=== PATIENT | male | born 1970 | race Caucasian/White ===

== ENCOUNTER 2025-03-08 19:28 | Inpatient (IN) | payer SELFPAY ==
[2025-03-08] VITALS (7 sets, daily range): BP systolic 54–90; BP diastolic 41–71; PULSE 74–90; RESP 21–28; TEMP 36.6; O2SAT 88–93; BMI 23.0
--- NOTE | 2025-03-08 19:30 | ECG_ITS ---
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 Measurements Intervals [place] Rate: 91 P: 69 IA: 142 QRS: 37 QRSD: 109 T: 71 QT: 338 QTc: 417 Interpretive Statements SINUS RHYTHM POSSIBLE LEFT ATRIAL ENLARGEMENT [-0.1mV P-WAVE IN V1/V2] INCOMPLETE RIGHT BUNDLE BRANCH BLOCK [90+ ms QRS DURATION, TERMINAL R IN V1/V2, 40+ ms S IN I/aVL/V4/V5/V6] SEPTAL MYOCARDIAL INFARCTION , OF INDETERMINATE AGE [40+ ms Q WAVE IN V1/V2] No previous ECG available for comparison Electronically Signed On 03-10-2025 16:52:21 [employer] by Jacinto Hernandez M.D. [email or web address]
--- NOTE | 2025-03-08 19:45 | W.ED.ABDPA2 ---
HPI - Abdominal Pain General: Chief Complaint: Abdominal Pain Stated Complaint: ABDOMINAL PAIN Time Seen by Provider: 03/08/25 19:29 History of Present Illness: 54-year-old male presents to the emergency room in the custody of [facility] complaining of abdominal cramping going on for last couple of days to a week. Has been nauseous has had a little bit of vomiting denies any medic easier melena hematemesis. Denies any dysuria urgency or frequency. He had a hernia repair surgery in the past. He noticed that when he sips on water his abdominal pain gets better. Poor appetite. No dysuria urgency frequency no hematuria. Associated Symptoms: Denies chills, dysuria and fever(s) Review of Systems Const: Denies: fever(s) or chills Card: Denies: chest pain Resp: Denies: dyspnea GI: Denies: abdominal pain : Denies: dysuria, urinary frequency or urinary urgency Musc: Denies: neck pain or back pain Skin/Breast: Denies: rash Physical Exam Const: GENERAL APPEARANCE: cooperative ORIENTATION/CONSCIOUSNESS: Yes awake, Yes oriented to person, Yes oriented to place and Yes oriented to time HENMT: COMMON NORMALS: normocephalic, atraumatic and hearing grossly normal bilaterally HEAD & SCALP: normocephalic and atraumatic Resp: COMMON NORMALS: normal respiratory effort, No retractions, No use of accessory muscles and clear to auscultation bilaterally AUSCULTATION: clear to auscultation bilaterally Cardio: COMMON NORMALS: regular rate, regular rhythm and No murmurs present (Cardio) RATE: regular rate RHYTHM: regular rhythm GI: AUSCULTATION: Yes Absent bowel sounds PALPATION: Yes Tenderness to palpation present (GI) and Yes Guarding due to palpation present (GI) Extremity: COMMON NORMALS: normal to inspection, capillary refill normal, no clubbing, cyanosis or edema, no calf tenderness and no pedal edema Neuro: SENSORIUM/ORIENTATION: Yes oriented to person, Yes oriented to place and Yes oriented to time Skin: COMMON NORMALS: no rashes or lesions noted GENERAL SKIN EXAM: no rashes or lesions noted Course Vital Signs: Vital signs: Vital Signs Temperature 97.8 F 03/08/25 19:36 Pulse Rate 74 03/08/25 22:35 Respiratory Rate 21 H 03/08/25 22:35 Blood Pressure 90/71 11/27/25 22:35 Pulse Oximetry 92 03/08/25 22:14 MDM - Abdominal Pain Medical Decision Making Medical decision making Social determinants: Patient currently incarcerated at the [facility] No medical records available for review No current home medications Alternate historians: Jose accompanying patient of confirmed abdominal pain for the last several days Differential diagnosis: Appendicitis cholecystitis bowel obstruction ulcer nephrolithiasis cystitis Lab Review: Labs reviewed. Significant leukocytosis lactate elevated liver enzymes and T. bili also markedly elevated. Imaging: CT shows free air in the abdomen concerning for acute perforated appendicitis. Gallbladder ultrasound does not show any dilation, bile ducts there is inflammation around the gallbladder suggestive of possible acute cholecystitis Assessment of risk: Level of risk: High Hospitalization considerations: Patient be taken from the ER directly to the operating room and then plan is to admit to ICU. Reexamination: Acute abdomen still present on reexam Assessment and plan: Patient is a poor historian he states he has had the abdominal pain for at least the past week worse in the last day or 2. He is difficult to get much more specific information out of on exam he does have an acute surgical abdomen. CT shows perforation. He was treated for sepsis. His significant leukocytosis elevated lactic acid and abnormal liver functions. He is given a initial liter of normal saline he also demonstrated some hypotension he was given a full sepsis bolus. He has acute kidney injury in addition to his other findings. Is also given Protonix. Discussed with general surgery and with hospitalist. Patient proceeding directly to the OR Lab Data I reviewed the patient's lab results. 03/08/25 19:59 03/08/25 19:59 Labs/Radiology: Radiology Impressions Chest X-Ray 03/08/25 19:49 IMPRESSION: No focal consolidation. Abdomen/Pelvis CT 03/08/25 20:48 IMPRESSION: 1. Free intraperitoneal air and fluid concerning for bowel perforation in the absence of recent abdominal surgery. 2. Question perforated appendix in the right lower quadrant (series 3, image 84) and (series 5, image 35). 3. Dilated air and fluid-filled stomach with fluid extending into the distended distal esophagus. Multiple dilated air and fluid-filled loops of small bowel concerning for ileus. ADDENDUM: 03/08/25 [id number] THIS REPORT CONTAINS FINDINGS THAT MAY BE CRITICAL TO PATIENT CARE. The findings were verbally communicated via telephone conference with NOVA Coleman at 9:48 PM ELECTRONIC COILS SUPERVISOR on 03/08/2025. The findings were acknowledged and understood. Gallbladder Ultrasound 03/08/25 21:07 IMPRESSION: Sludge filled gallbladder with sonographic Dahl's sign and gallbladder wall thickening consistent with cholecystitis. Laboratory Results WBC 27.94 10^3/uL (3.29-11.43) H 03/08/25 19:59 RBC 5.74 10^6/uL (3.85-5.65) H 03/08/25 19:59 Hgb 18.20 g/dL (11.27-16.99) H 03/08/25 19:59 Hct 51.4 % (37-53) 03/08/25 19:59 MCV 89.5 fl (82-101) 03/08/25 19:59 MCH 31.7 pg (27-33) 03/08/25 19:59 MCHC 35.4 g/dL (30-55) 03/08/25 19:59 RDW 12.7 % (12.1-15.1) 03/08/25 19:59 Plt Count 200 10^3/cmm (157-399) 03/08/25 19:59 MPV 12.5 fL (7.4-10.4) H 03/08/25 19:59 Lymph % (Auto) Not Reportable 03/08/25 19:59 Bracken % (Auto) Not Reportable 03/08/25 19:59 Lymph # (Auto) Not Reportable 03/08/25 19:59 Bracken # (Auto) Not Reportable 03/08/25 19:59 Total Counted 100 (0-100) 03/08/25 19:59 Atypical Lymphs % 3.0 % (0-5) 03/08/25 19:59 Absolute Neutrophils 23.7 10^3/cmm (1.4-6.5) H 03/08/25 19:59 Segmented Neutrophils 52 % 03/08/25 19:59 Band Neutrophils 33.0 % 03/08/25 19:59 Absolute Lymphocytes 2.8 10^3/cmm (1.2-3.4) 03/08/25 19:59 Lymphocytes (Manual) 7 % 03/08/25 19:59 Monocytes (Manual) 4.0 % 03/08/25 19:59 Absolute Monocytes 1.1 10^3/cmm (0.1-0.6) H 03/08/25 19:59 Eosinophils (Manual) 0 % 03/08/25 19:59 Absolute Eosinophils 0.0 10^3/cmm (0.0-0.7) 03/08/25 19:59 Basophils (Manual) 0.0 % 03/08/25 19:59 Absolute Basophils 0.0 10^3/cmm (0.0-0.2) 03/08/25 19:59 Metamyelocytes 1.0 % 03/08/25 19:59 Smudge Cells 1+ H 03/08/25 19:59 Platelet Estimate Normal (Normal) 03/08/25 19:59 Sodium 126 mmol/L (136-145) L 03/08/25 19:59 Potassium 3.0 mmol/L (3.5-5.1) L 03/08/25 19:59 Chloride 81 mmol/L (98-107) L 03/08/25 19:59 Carbon Dioxide 12 mmol/L (22-29) L 03/08/25 19:59 Anion Gap 36.0 (5-19) H 03/08/25 19:59 BUN > 112 mg/dL (6-20) H* 03/08/25 19:59 Creatinine 4.1 mg/dL (0.7-1.2) H 03/08/25 19:59 GFR Calculation 15.2 mL/min (90-130) L 03/08/25 19:59 Glucose 185 mg/dL (65-115) H 03/08/25 19:59 Calculated Osmolality 302 mOsm/kg (285-295) H 03/08/25 19:59 Lactic Acid 10.3 mmol/L (0.5-2.2) H* 03/08/25 19:59 Calcium 8.6 mg/dL (8.5-10.5) 03/08/25 19:59 Total Bilirubin 4.9 mg/dL (0.15-1.2) H 03/08/25 19:59 AST 180 U/L (0-40) H 03/08/25 19:59 ALT 74 U/L (0-41) H 03/08/25 19:59 Alkaline Phosphatase 79 U/L (40-130) 03/08/25 19:59 Ammonia 76 umol/L (16-60) H 03/08/25 19:59 Total Protein 6.4 g/dL (6.6-8.7) L 03/08/25 19:59 Albumin 2.7 g/dL (3.5-5.2) L 03/08/25 19:59 Globulin 3.7 g/dL (1.3-4.6) 03/08/25 19:59 Lipase 52 U/L (13-60) 03/08/25 19:59 All radiology interpretation(s) finalized by discharge EKG Data EKG 1: Interpretation: EKG 03/08/2000 2520 12 PM sinus rhythm rate of 91 WI interval 142 QTc [address] changes noted no previous EKG available for comparison Discharge Plan Discharge Patient Disposition: Admitted As Inpatient Clinical Impression: Perforated viscus, Acute kidney injury, Acute cholecystitis, Cholelithiasis, Septic shock Condition: Stable Coding Level of Care Code ED Geoint Analyst for Alvina Hendricks
--- NOTE | 2025-03-08 19:49 | XRR_ITS ---
PROCEDURE INFORMATION: Exam: XR Chest Exam date and time: 03/08/2025 7:59 PM Age: 54 years old Clinical indication: Dyspnea; Additional info: Dyspnea/cough TECHNIQUE: Imaging protocol: Radiologic exam of the chest. Views: 1 view. COMPARISON: No relevant prior studies available. FINDINGS: Lungs: Calcified granuloma of the lateral aspect of the left mid lung field. No focal consolidation. Pleural spaces: Unremarkable. No pleural effusion. No pneumothorax. Heart/Mediastinum: Unremarkable. No cardiomegaly. Bones/joints: Unremarkable. XR/XR chest 1V portable [id number] IMPRESSION: No focal consolidation.
[2025-03-08 20:07] LABS: Hematocrit 51.4 % (37-53); Hemoglobin 18.20 g/dL (11.27-16.99); Mean Corpuscular HGB Conc 35.4 g/dL (30-55); Mean Corpuscular Hemoglobin 31.7 pg (27-33); Mean Corpuscular Volume 89.5 fl (82-101); Platelet Count 200 10^3/cmm (157-399); Red Blood Count 5.74 10^6/uL (3.85-5.65); White Blood Count 27.94 10^3/uL (3.29-11.43)
[2025-03-08 20:27] LABS: Ammonia 76 umol/L (16-60)
[2025-03-08 20:28] LABS: Alanine Aminotransferase 74 U/L (0-41); Albumin Level 2.7 g/dL (3.5-5.2); Alkaline Phosphatase 79 U/L (40-130); Aspartate Amino Transferase 180 U/L (0-40); Calcium 8.6 mg/dL (8.5-10.5); Carbon Dioxide 12 mmol/L (22-29); Chloride 81 mmol/L (98-107); Globulin 3.7 g/dL (1.3-4.6); Glucose 185 mg/dL (65-115); Lipase 52 U/L (13-60); Sodium 126 mmol/L (136-145); Total Protein 6.4 g/dL (6.6-8.7)
[2025-03-08 20:41] LABS: Lactic Sepsis W/Reflex 10.3 mmol/L (0.5-2.2)
[2025-03-08 20:42] LABS: Anion Gap 36.0 (5-19); Potassium 3.0 mmol/L (3.5-5.1)
[2025-03-08 20:44] LABS: Blood Urea Nitrogen > 112 mg/dL (6-20); Osmolality Calculated 302 mOsm/kg (285-295)
--- NOTE | 2025-03-08 20:48 | CTR_ITS ---
PROCEDURE INFORMATION: Exam: CT Abdomen And Pelvis Without Contrast Exam date and time: 03/08/2025 9:23 PM Age: 54 years old Clinical indication: Abdominal pain TECHNIQUE: Imaging protocol: Computed tomography of the abdomen and pelvis without contrast. Radiation optimization: All CT scans at this facility use at least one of these dose optimization techniques: automated exposure control; mA and/or kV adjustment per patient size (includes targeted exams where dose is matched to clinical indication); or iterative reconstruction. COMPARISON: CR (CHEST, ) 03/08/2025 7:59 PM RADIATION DOSE METRICS: Total DLP (mGy-cm): 601.13 FINDINGS: Liver: Normal. No mass. Gallbladder and biliary ducts: Normal. No calcified stones. No ductal dilation. Pancreas: Normal. No ductal dilation. Spleen: Normal. No splenomegaly. Adrenal glands: Normal. No mass. Kidneys and ureters: Normal. No hydronephrosis. Stomach and bowel: Dilated air and fluid-filled stomach with fluid extending into the distended distal esophagus. Multiple dilated air and fluid-filled loops of small bowel concerning for ileus. Appendix: Question perforated appendix in the right lower quadrant (series 3, image 84) and (series 5, image 35). Intraperitoneal space: Free intraperitoneal air and fluid concerning for bowel perforation in the absence of recent abdominal surgery. Vasculature: Unremarkable. No abdominal aortic aneurysm. Lymph nodes: Unremarkable. No enlarged lymph nodes. Urinary bladder: Unremarkable as visualized. Reproductive: Unremarkable as visualized. Bones/joints: Unremarkable. No acute fracture. Soft tissues: Unremarkable. CT/CT abdomen pelvis con [id number] IMPRESSION: 1. Free intraperitoneal air and fluid concerning for bowel perforation in the absence of recent abdominal surgery. 2. Question perforated appendix in the right lower quadrant (series 3, image 84) and (series 5, image 35). 3. Dilated air and fluid-filled stomach with fluid extending into the distended distal esophagus. Multiple dilated air and fluid-filled loops of small bowel concerning for ileus.
[2025-03-08 21:00] LABS: Slide Review Slide Review Perform
[2025-03-08 21:01] LABS: Absolute Segmented Neutrophil 14.5 10/cmm (1.6-7.1); Atypical Lymphs 3.0 % (0-5); Band Neutrophils Absolute 9.2 10^3/cmm (0.0-1.2); Total Cells Counted 100 (0-100)
[2025-03-08 21:02] LABS: Smudge Cells 1+
[2025-03-08] MEDS: pantoprazole 40 mg SDV 80 MG IVP (21:04)
[2025-03-08] MEDS: piperacillin-tazobactam 3.375 GM in sodium chloride 0.9% (plus) 50 ML IV (21:07)
--- NOTE | 2025-03-08 21:07 | USR_ITS ---
PROCEDURE INFORMATION: Exam: US Abdomen, Limited; Right Upper Quadrant Exam date and time: 03/08/2025 9:36 PM Age: 54 years old Clinical indication: Nausea and vomiting; Additional info: Elevated lfts, elevated t bili TECHNIQUE: Imaging protocol: Real time ultrasound of the abdomen with image documentation. Limited exam focused on the right upper quadrant. COMPARISON: CT abdomen pelvis wo con [id number] 03/08/2025 9:23 PM FINDINGS: Liver: The liver is enlarged measuring up to 17.4 cm in length. Gallbladder: The gallbladder wall is thickened measuring up to 5 mm. The gallbladder is filled with sludge. Sonographic Dahl's sign elicited during the examination. Biliary ducts: Common bile duct measures 5 mm in diameter. Abdominal ascites. Pancreas: Visualized pancreas is unremarkable. Right kidney: The right kidney measures 9.2 cm in length with no hydronephrosis or renal calculus. Inferior vena cava: The visualized aorta and IVC are unremarkable. Portal venous: The main portal vein is patent with appropriate direction of flow. US/US gall bladder [id number] IMPRESSION: Sludge filled gallbladder with sonographic Dahl's sign and gallbladder wall thickening consistent with cholecystitis.
[2025-03-08 21:50] LABS: Reflex Lactate Order REFLEX LACTIC ORDERD
[2025-03-08] MEDS: ceFAZolin 2,000 MG in sodium chloride 0.9% (plus) 100 ML 200 MG IV (22:57)
--- NOTE | 2025-03-08 23:01 | P.CONIM_ITS ---
Providers/Reason For Consult 2 Consulting Physician/Specialty*: Dr. Floyd general surgery Reason for Consult*: Perforated viscus Attending Physician: Jamir Floyd MD Primary Care Provider: hayde Denson History of Present Illness History of Present Illness Tl Schmuacher is a 54 year old male incarcerated who presents with septic shock with free air. Patient reports remote surgeries in the past although does not recall what he had done. No history of peptic ulcer disease. Patient does not have any relatives or next of kin. Diffusely tender to palpation. Hemodynamically appropriate. Vitals/I&O/Wt Last Vital Signs Temp 97.8 F 03/08/25 19:36 Pulse 74 03/08/25 22:35 Resp 21 H 03/08/25 22:35 BP 90/71 03/08/25 22:35 Pulse Ox 92 03/08/25 22:14 03/08/25 03/08/25 03/09/25 14:59 22:59 06:59 Intake Total 1050 / 1050 Balance 1050 / 1050 Weight last 48 hrs Weight 170 lb Physical Exam 2 Narrative: Chest: Unlabored breathing room air. No lymphadenopathy. Heart: Regular rate and rhythm. Abdomen: Soft, diffusely tender, mildly distended. No rebound. Data 03/08/25 19:59 03/08/25 19:59 Micro: Microbiology 03/08/25 20:01 Blood Culture - Preliminary Blood SPECIMEN COLLECTED 03/08/25 19:59 Blood Culture - Preliminary Blood SPECIMEN COLLECTED A&P Assessment and plan 1. Perforated viscus: Plan: 54-year-old male incarcerated who presents in septic shock with a year. Perforated viscus. I had an extensive discussion with the patient and answered all questions. I have discussed non operative/non procedural options and the patient still decides to proceed. Discussed risks and benefits of exploratory laparotomy, possible bowel resection, possible ostomy, possible ABThera, possible subsequent reexploration and patient decides to proceed. Patient understands the risks include bleeding, infection, hernia, anastomotic leak, bowel injury, and and still decides to proceed. Patient has no next of kin who would be able to make medical decisions. He understands he may remain intubated for several days. He agrees with any and all ICU procedures needed in order to support him. He agrees to dialysis if needed. Anesthesia providers present for the discussion. Discussed with hospitalist who will be primary given need for intensive care management. PDMP PDMP Reviewed: Not Reviewed Coding Level of Care Code 71422 Diagnoses Perforated viscus R19.8
--- NOTE | 2025-03-08 23:27 | ANES.PREANE2 ---
Pre-Anesthetic Assessment Height/Weight: Height 1.83 m Weight 77.111 kg Temp Pulse Resp BP Pulse Ox 97.8 F 74 21 H 90/71 92 03/08/25 19:36 03/08/25 22:35 03/08/25 22:35 03/08/25 22:35 03/08/25 22:14 Operation Date: 03/08/25 22:00 Proposed Procedures p Exploratory Laparotomy(Not Applicable) - Jamir Floyd MD Familial anesthetic complications: none Was Beta Fawn taken within 24 hours: N/A Was Clonidine taken within 24 hours: N/A Exam alert, oriented x 3, clear to auscultation bilaterally and regular rate & rhythm Airway Dentition: other (poor dentition) Anesthetic Plan ASA status: 4E Anesthesia: General Risk of > 500 ml blood loss (7ml/kg in children): No Data Anesthesia 03/08/25 19:59 03/08/25 19:59 Short CBC 03/08/25 Range/Units 19:59 WBC 27.94 H (3.29-11.43) 10^3/uL Hgb 18.20 H (11.27-16.99) g/dL Hct 51.4 (37-53) % MCV 89.5 (82-101) fl Plt Count 200 (157-399) 10^3/cmm BMP 03/08/25 19:59 Sodium 126 L Potassium 3.0 L Chloride 81 L Carbon Dioxide 12 L BUN > 112 H* Creatinine 4.1 H Glucose 185 H Calcium 8.6 Liver Function 03/08/25 Range/Units 19:59 Total Bilirubin 4.9 H (0.15-1.2) mg/dL AST 180 H (0-40) U/L ALT 74 H (0-41) U/L Alkaline Phosphatase 79 (40-130) U/L Albumin 2.7 L (3.5-5.2) g/dL Microbiology 03/08/25 20:01 Blood Culture - Preliminary Blood SPECIMEN COLLECTED 03/08/25 19:59 Blood Culture - Preliminary Blood SPECIMEN COLLECTED
[2025-03-09] VITALS (96 sets, daily range): BP systolic 63–130; BP diastolic 44–91; PULSE 65–163; RESP 17–37; TEMP 35.7–36.6; O2SAT 86–98
--- NOTE | 2025-03-09 00:07 | PM.OP ---
Operative Report Date of procedure: March 09, 2025 Pre-op diagnosis: Perforated viscus Post-op diagnosis: Perforated appendicitis with multiple intra-abdominal abscesses Post-op findings: Perforated appendicitis with multiple intra-abdominal abscesses. 1 L of purulent fluid evacuated. Performed an appendectomy. Washed out the abdomen with 9 L of warm normal saline and 900 cc of Irrisept. Ran the bowel 5 times from ligament of Treitz to the cecum and it was all intact. Ascending colon, transverse colon, descending colon all intact. Stomach intact. NG tube positioning confirmed intraoperatively. Left to 19 [place] Toribio drains in the right paracolic gutter and left paracolic gutter. Procedure done: Exploratory laparotomy, appendectomy, abdominal washout Implants: N/A Specimens removed/disposition: Cultures obtained for intra-abdominal abscesses. Resected appendix and sent to pathology. Pathology: Appendix sent to pathology Surgeon: Jamir Floyd MD Candy Counter Clerk: N/A Anesthesia: General Estimated blood loss (mL): 30 Complications: N/A Findings: Perforated appendicitis with multiple intra-abdominal abscesses. 1 L of purulent fluid evacuated. Performed an appendectomy. Washed out the abdomen with 9 L of warm normal saline and 900 cc of Irrisept. Ran the bowel 5 times from ligament of Treitz to the cecum and it was all intact. Ascending colon, transverse colon, descending colon all intact. Stomach intact. NG tube positioning confirmed intraoperatively. Left to 19 [place] Toribio drains in the right paracolic gutter and left paracolic gutter. Condition: critical Disposition: ICU Brief History: 54-year-old male who presented in septic shock with free air. Discussed risk benefits and patient agreed to proceed with exploratory laparotomy, possible bowel resection, possible ostomy, possible ABThera, possible subsequent reexploration. Procedure: Consent obtained in the preop area. Patient transported to the OR. Laid supine on the OR table. SCDs on and working. Prophylactic antibiotics administered. Anesthesia placed a central line on the neck and an radial arterial line. A Bagley catheter was placed without any complication. Urine was obtained. The abdomen was prepped and draped in the usual sterile fashion. A midline incision was carried out. Electrocautery was used to dissect down to the fascial layer and scissors were used to enter the abdominal cavity. Immediately 1 L of purulent fluid was evacuated. Cultures were obtained and sent to microbiology. The abdominal cavity was washed out with 4 liters of warm normal saline. I then inspected the right iliac fossa and encountered a necrotic appendix with a large periappendiceal abscess. The a periappendiceal abscess was washed out with 3 L of warm normal saline. The appendix had a viable base at the cecum and therefore I was able to resect the appendix using a SURI stapler with a blue load. I passed off the specimen and it was sent to pathology. I then proceeded to run the bowel from ligament of Treitz to the cecum and it was all intact. I did encounter several interloop abscesses. These were washed out with 2 L warm normal saline. The ascending colon, the transverse colon, the descending colon were all inspected and found intact. The stomach was inspected and was intact. Adequate any to positioning was confirmed intraoperatively. NG tube was secured by anesthesia. I left two 19 [place] Toribio drains in the right and left paracolic gutters. The patient remained stable throughout the operation. I then decided to close the abdomen using oh looped PDS. Skin was irrigated and closed using surgical rober. A sterile dressing was applied. The patient was transferred to the ICU without any complications.
--- NOTE | 2025-03-09 00:30 | PC.NURSE ---
KCL Upon patient arrival to unit from OR, 20 meq KCL IV administering. MAR displayed not administered.
--- NOTE | 2025-03-09 00:49 | P.HP_ITS ---
Providers/Chief Complaint 2 Admitting Physician: Jamir Floyd MD Primary Care Provider: hayde Denson Chief Complaint: ABDOMINAL PAIN History of Present Illness As per the previous retrospective notes since the patient is intubated and no one is around to obtain collateral history: Tl Schumacher is a 54 year old male from retirement ( custody of [facility] ) came due to abd pain that has been ongoing for a month or so. he was nauseated as well but denied any vomiting. no fever or chills. the patient does not endorse having any other medical condition. On further evaluation the patient was found to have perforated viscus in the ER. His labs were concerning for septic shock with WENCESLAO and high lactic acid. He was taken to the OR and was found to have perforated appendix and intrabd abscess. he underwent ex lap with removal of the appendix and abd washout. 2 drains were inserted. he was extubated post surgery. currently on NGT as per surgery plan. the patient did not endorse any chest pain, chest pressure, lower leg swellings or any other symptoms like SOB or dizziness. rest of the review of system is unremarkable currently the patient is feeling well and is under police obs with hand cuffed to the ICU bed. Review of Systems 2 General: Reports: 10 or more systems reviewed and unremarkable except in HPI and below Vitals/I&O/Wt Last Vital Signs Temp 97.8 F 03/08/25 19:36 Pulse 74 03/08/25 22:35 Resp 21 H 03/08/25 22:35 BP 90/71 03/08/25 22:35 Pulse Ox 92 03/08/25 22:14 03/08/25 03/08/25 03/09/25 14:59 22:59 06:59 Intake Total 1050 / 1050 Balance 1050 / 1050 Weight last 48 hrs Weight 77.111 kg Physical Exam 2 Narrative: General: Alert and oriented, lying comfortably without any distress, on room air, able to complete his sentences, on fluid resuscitation HEENT: Normocephalic, atraumatic, grossly unremarkable exam Cardio: normal rate rhythm, normal S1-S2 without any murmurs, rubs, or gallops and JVD normal Respiratory: normal vascular breathing on auscultation without any wheezes, stridor, rhonchi GI: Abdomen soft, nondistended, normoactive bowel sounds present all 4 quadrants, with 2 drains at both lower quadrants having serosangious discharge, dressing in the middle for exp lap Neuro: intact cranial nerves motor and sensory and cerebellar/coordination function without any focal neurological deficit Behavior: Appropriate and cooperative Extremities: Adequate palpable pulses, no edema or cyanosis observed, having left arterial line and mild bluish tinge of his left hand, on folleys cath Skin: grossly unremarkable exam Data 03/08/25 19:59 03/08/25 19:59 Micro: Microbiology 03/08/25 20:01 Blood Culture - Preliminary Blood SPECIMEN COLLECTED 03/08/25 19:59 Blood Culture - Preliminary Blood SPECIMEN COLLECTED A&P Assessment and plan 1. Septic shock: - Secondary to intra-abdominal source from ruptured appendix and abdominal abscesses - Patient is fluid responsive, and having adequate pulses with adequate capillary refill, continue fluid resuscitation and aggressive fluid to maintain the MAP above 65 - 2 sets of blood cultures, urine cultures, to follow - Continue Zosyn - Lactate series - Maintain 2 IV bore cannulas -Patient having MAP over 65 and adequate pulses therefore to remove the arterial line on the left hand considering it may be leading to inadequate perfusion distally. -Monitor hemodynamics -Intake and output monitoring 2. Acute kidney injury: - Since the patient BUN and lactate is high - High osmolarity - Continue aggressive fluid resuscitation and monitor renal parameters - If renal parameters are not improving then further workup of WENCESLAO versus nephrology to be taken on board - Bagley's catheter and catheter care to continue - Urine cultures to follow - Maintain intake and output 3. Perforated viscus: - S/p exploratory laparotomy for ruptured appendix and abdominal wash for intra- abdominal abscesses - Continue Zosyn - Adequate analgesia - Follow surgery plan and recommendation - N.p.o. and on NGT - Diet as per surgery plan and recommendation 4. Hypokalemia: Continue potassium replacement and to monitor in the morning Follow magnesium levels PDMP PDMP Reviewed: Not Reviewed Attestations 2 Medical Necessity Statement*: Tl Schumacher's hospital stay will require greater than 2 midnights for management of septic shock secondary to ruptured abdominal viscera/appendix and abscesses complicated with WENCESLAO Time Spent in Patient Care: 16 - 35 minutes (>than 50% of time sp ent in counselling and/or direct pt care on unit) . Critical Care Time: The high probability of a clinically significant, sudden or life threatening deterioration, as referenced in this documentation, required my full and direct attention, intervention and personal management. The critical care time shown is in addition to time spent performing any reported separately billable procedures and includes the following: [x] Data and vital sign review and interpretation [x ] Patient assessment, examination and intervention [x] Medication orders and management [x] Patient/Family updates as able [x] Care Coordination and Documentation. Critical Care Time (min): 40 Other Attestations: Patient condition has been discussed at length with the patient/family, I have independently reviewed the chart labs imaging/diagnostics/EKG. the goals of care and code status with the patient/family/NOK/legal inbound call center representative, and documented accordingly. The management has been done according to the current clinical condition with respect to patient goals of care and based on recommendations/guidelines. The patient/family has been informed about the current condition and further plan of care. Agreed with the plan of care and understood without any language barrier. Every effort was made to ensure accuracy of tipping machine operator. Any obvious errors or omissions should be clarified with the author of the document. Coding Level of Care Code Critical Care >/= 30 minutes Diagnoses Septic shock A41.9; R65.21 Acute kidney injury N17.9 Perforated viscus R19.8 Hypokalemia E87.6
--- NOTE | 2025-03-09 01:00 | ANES.PROC ---
Anesthesia Procedures Procedure/Date: 03/09/25 Arterial Line: Time Out Performed: Yes Consent: from patient, from other, risks and benefits reviewed and patient agrees to proceed Size (Gauge): 20 Technique Used: guide wire technique Post-Procedure: dry sterile dressing placed Patient Tolerated Procedure: well and no complications Complications: none Site: left and radial Other Information: diagnosis:Septic shock
--- NOTE | 2025-03-09 01:00 | ANES.PROC ---
Anesthesia Procedures Procedure/Date: 03/09/25 Central Venous Insert: Central Venous Line: R IJ Time Out Performed: Yes Consent: from patient, from other, risks and benefits reviewed and patient agrees to proceed Central Line: New Anesthesia monitors: pulse oximetry, EKG, BP cuff and oxygen Vein cannulated: right internal jugular Ultrasound used: to identify patency to vessel and to visualize needle entry to vein Post procedure: Obtain Chest X-Ray Additional Comments: Chloraprep of area, full body drape applied, US used to visualize vessel and 18g catheter used to gain access, guidewire inserted and visualize in vessel both in-plane and [id number] on US, vessel dilated, triple lumen inserted, guidewire removed, sutured in place.
--- NOTE | 2025-03-09 01:42 | XRR_ITS ---
PROCEDURE INFORMATION: Exam: XR Chest Exam date and time: 03/09/2025 3:06 AM Age: 54 years old Clinical indication: Device placement; Other: Central and ng tube placement; Additional info: Central line placement/ ng tube placement TECHNIQUE: Imaging protocol: Radiologic exam of the chest. Views: 1 view. COMPARISON: CR (CHEST, ) 03/08/2025 7:59 PM FINDINGS: Tubes, catheters and devices: Feeding tube terminates in the stomach. Right IJ central venous catheter terminates in the SVC. Lungs: Unremarkable. No consolidation. Pleural spaces: Small left pleural effusion. Heart/Mediastinum: Unremarkable. No cardiomegaly. Bones/joints: Unremarkable. XR/XR chest 1V portable [id number] IMPRESSION: 1. Feeding tube terminates in the stomach. 2. Small left pleural effusion.
--- NOTE | 2025-03-09 01:45 | ANE.PACU2 ---
Inpatient post-anesthesia follow up: Airway intact: Yes Vital signs: Temperature 98 F Pulse Rate 92 Respiratory Rate 24 Blood Pressure 85/61 Pulse Oximetry 90 Oxygen Delivery Me thod Room Air Oxygen Flow Rate Fraction of Inspir ed Oxygen Hydration adequate: No (resuscitation ongoing) Nausea and vomiting: No Pain level: 5 Mental status: Baseline
[2025-03-09] MEDS: heparin 5,000 unit/mL INJ 1 mL 5000 UNIT SUBCUT ×2 (01:51→12:10)
--- NOTE | 2025-03-09 02:00 | PC.NURSE ---
Heparin/NGT Verification received from Dr. Rivas to administer subq heparin as ordered. Furthermore, order received from Dr. Garg to keep NG tube to low intermittent suction.
--- NOTE | 2025-03-09 02:00 | PC.NURSE ---
BP/Left Arterial Line Upon arrival to unit at around 0030, patient's blood pressure 63/46 automatic cuff with a corresponding arterial line reading of 71/33. Patient cool with a temporal temperature of 96F. Dr. Rivas contacted and order received for 2 one liter NS boluses with a maintenance fluid of LR to follow at 150 ml/hr. At approximately 0055, below the arterial line catheter, the left hand noted to be cyanotic with a +1 palpable radial pulse and a capillary refill of 8 seconds. In comparison, the right hand noted to be pink with a +2 palpable radial pulse and a capillary refill of [address] iRvas at bedside; order received to remove the arterial line. Arterial line removed at 0117; pressure held for 15 minutes and clear dressing applied. No hematomas noted. Approximately 30 minutes later, left hand noted to be pink in color with +2 palpable radial pulse.
[2025-03-09 03:08] LABS: Glucose Urine UA Negative (Normal); Nitrate Urine Negative (Negative); Specific Gravity, Urine 1.016 (1.005-1.030)
[2025-03-09 03:13] LABS: Add Urine Microscopic? YES
[2025-03-09 03:25] LABS: UA Slide Review UA Slide Review Perf
[2025-03-09 06:35] LABS: Magnesium 2.9 mg/dL (1.7-2.3)
[2025-03-09] MEDS: piperacillin-tazobactam 3.375 GM in sodium chloride 0.9% (plus) 50 ML IV ×3 (07:17→21:40)
[2025-03-09] MEDS: pantoprazole 40 mg SDV IVP (07:22)
[2025-03-09 08:15] LABS: Hematocrit 43.5 % (37-53); Hemoglobin 16.10 g/dL (11.27-16.99); Mean Corpuscular HGB Conc 37.0 g/dL (30-55); Mean Corpuscular Hemoglobin 32.5 pg (27-33); Mean Corpuscular Volume 87.9 fl (82-101); Nucleated Red Blood Cells % 0 %; Platelet Count 170 10^3/cmm (157-399); Red Blood Count 4.95 10^6/uL (3.85-5.65); White Blood Count 28.11 10^3/uL (3.29-11.43)
[2025-03-09 08:30] LABS: Alanine Aminotransferase 76 U/L (0-41); Albumin Level 1.9 g/dL (3.5-5.2); Alkaline Phosphatase 60 U/L (40-130); Anion Gap 24.5 (5-19); Aspartate Amino Transferase 205 U/L (0-40); Calcium 6.8 mg/dL (8.5-10.5); Carbon Dioxide 12 mmol/L (22-29); Chloride 95 mmol/L (98-107); Globulin 2.6 g/dL (1.3-4.6); Glucose 94 mg/dL (65-115); Lactic Sepsis W/Reflex 3.7 mmol/L (0.5-2.2); Potassium 3.5 mmol/L (3.5-5.1); Reflex Lactate Order REFLEX LACTIC ORDERD; Sodium 128 mmol/L (136-145); Total Protein 4.5 g/dL (6.6-8.7)
--- NOTE | 2025-03-09 08:45 | P.PN_ITS ---
Subjective 2 Subjective: Off pressors Toribio drains about 50 cc each right side serosanguineous left side murky Not passing gas Pain under control Urine output 1000 cc overnight Vitals/I&O/Wt Last Vital Signs Temp 98 F 03/09/25 05:45 Pulse 92 03/09/25 08:15 Resp 24 H 03/09/25 08:15 BP 85/61 03/09/25 08:15 Pulse Ox 90 03/09/25 08:15 O2 Del Method Room Air 03/09/25 07:45 03/08/25 03/09/25 03/09/25 22:59 06:59 14:59 Intake Total 1050 / 1050 965.8 / 2015.8 1000 / 1000 Output Total 225 / 225 750 / 750 Balance 1050 / 1050 740.8 / 1790.8 250 / 250 Weight last 48 hrs Weight 190 lb 11.198 oz Weight 170 lb Physical Exam 2 Narrative: Chest: Unlabored breathing room air. No lymphadenopathy. Heart: Regular rate and rhythm. Abdomen: Soft, appropriately tender, mildly distended. Right drain serosanguineous left drain murky Urinary Catheter Management: Bagley: Cath Placed During This Visit: yes Reason for Continuing Indwelling Catheter: Accurate Measurement of Urinary Output in Critically Ill Patients Urinary Catheter Date of Insertion: 03/08/25 Urinary Catheter Time of Insertion: 23:18 Data 03/09/25 18:10 03/09/25 18:10 Micro: Microbiology 03/08/25 20:01 Blood Culture - Preliminary Blood SPECIMEN COLLECTED 03/08/25 19:59 Blood Culture - Preliminary Blood SPECIMEN COLLECTED A&P Assessment and plan 1. Perforated appendicitis: Plan: 54-year-old male status post exploratory laparotomy for free air secondary to perforated appendicitis with large intra-abdominal abscesses. Performed an appendectomy. Washed out the abdomen. Today doing well. Await return of bowel function. No concern for cholecystitis giving IntraOp findings. Imaging findings as well as LFTs are secondary to shock liver. Continue IV Zosyn for now. Rest of care per hospitalist. PDMP PDMP Reviewed: Not Reviewed Attestations 2 Medical Necessity Statement*: N/A Coding Level of Care Code 14979 Diagnoses Perforated appendicitis K35.32
[2025-03-09 08:49] LABS: Osmolality Calculated 303 mOsm/kg (285-295)
[2025-03-09 08:51] LABS: Blood Urea Nitrogen 118 mg/dL (6-20)
[2025-03-09 10:42] LABS: Lactic Acid level (Lactate) 3.7 mmol/L (0.5-2.2)
--- NOTE | 2025-03-09 13:21 | P.MISC_ITS ---
Miscellaneous Note Purpose of Documentation: Follow-up s/p septic shock secondary to intra-abdominal source/perforated v iscus/ruptured appendix and intra-abdominal abscesses complicated with WENCESLAO and dehydration, acalculous cholecystitis, transaminitis, electrolyte imbalance Note: Assessment: Post ex lap for ruptured appendix/perforated viscus, acute acalculous cholecystitis, transaminitis, septic shock responsive to fluids WENCESLAO secondary to septic shock/prerenal Hyponatremia and-chloremia likely dehydration since serum osmolality is high Anion gap metabolic acidosis secondary to septic shock, and high lactate with WENCESLAO High lactate secondary to septic shock Plan: -Continue aggressive fluid resuscitation with maintenance fluids, 2 L bolus of fluid stat -Follow-up CMP after fluid boluses -Daily renal parameters monitoring and i ntake and output - Continue broad-spectrum antibiotics wi th Zosyn and add vancomycin since the patient renal functions are still not improving and liver functions are mildly increased - Sent for MRSA, follow the blood cultur es and urine cultures - Follow-up with the surgery -If the patient is unresponsive to fluid s then consider Nor epi -adequate capillary refill and urinary o utput is improving - Maintain MAP over 65 Patient condition has been discussed at length with the patient/family, I have independently reviewed the chart labs imaging/diagnostics/EKG. the goals of care and code status with the patient/family/NOK/legal small business representative, and documented accordingly. The management has been done according to the current clinical condition with respect to patient goals of care and based on recommendations/gu idelines. The patient/family has been informed about the current condition and further plan of care. Agreed with the plan of care and understood without any language barrier. Every effort was made to ensure accuracy of paratransit driver. Any obvious errors or omissions should be clarified with the author of the document.
[2025-03-09] MEDS: calcium gluconate 0.9% NaCL 1 GM/50 ML PREMIX IV (13:43)
[2025-03-09 13:53] LABS: Alanine Aminotransferase 70 U/L (0-41); Albumin Level 1.8 g/dL (3.5-5.2); Alkaline Phosphatase 60 U/L (40-130); Anion Gap 25.6 (5-19); Aspartate Amino Transferase 187 U/L (0-40); Calcium 6.7 mg/dL (8.5-10.5); Carbon Dioxide 11 mmol/L (22-29); Chloride 94 mmol/L (98-107); Globulin 2.5 g/dL (1.3-4.6); Glucose 87 mg/dL (65-115); Potassium 3.6 mmol/L (3.5-5.1); Sodium 127 mmol/L (136-145); Total Protein 4.3 g/dL (6.6-8.7)
[2025-03-09 14:00] LABS: Blood Urea Nitrogen 122 mg/dL (6-20); Osmolality Calculated 302 mOsm/kg (285-295)
--- NOTE | 2025-03-09 17:06 | PC.NURSE ---
Dr. Wilson came to bedside observed low urine out put and labs, orders see mar
--- NOTE | 2025-03-09 17:10 | USR_ITS ---
PROCEDURE INFORMATION: Exam: US Retroperitoneal, Complete, Kidneys and Bladder Exam date and time: 03/09/2025 6:29 PM Age: 54 years old Clinical indication: Other: Simón and decrease uop TECHNIQUE: Imaging protocol: Real-time ultrasound of the retroperitoneum with image documentation. Complete exam focused on the bilateral kidneys and urinary bladder. COMPARISON: US gall bladder [id number] 03/08/2025 9:36 PM FINDINGS: Right kidney: The right kidney measures 10.1 cm in length with no hydronephrosis or renal calculus. Left kidney: The left kidney measures 10.5 cm in length with no hydronephrosis or renal calculus. Urinary bladder: Unremarkable. Aorta: The proximal aorta is unremarkable. Intraperitoneal space: Small amount of free fluid layers over the dome of the liver. US/US renal BI* [id number] IMPRESSION: 1. No hydronephrosis or renal calculus. 2. Small amount of free fluid layers over the dome of the liver.
--- NOTE | 2025-03-09 17:39 | PM.CONSULT ---
Providers/Reason For Consult Consulting Physician/Specialty*: kommana/nephrology Reason for Consult*: WENCESLAO Attending Physician: Estiven Rivas MD History of Present Illness History of Present Illness Tl Schumacher is a 54 year old male Patient is a 54-year-old male with no known past medical problems, but has not seen doctors in years to the emergency department due to abdominal pain. Found to have perforated viscus and was emergently taken to the OR and was found to have perforated appendix with intra-abdominal abscess. He underwent ex lap and washout. He is currently with possible sepsis, has persistent metabolic acidosis with a bicarbonate ranging from worsening creatinine. No baseline creatinine available was 4.1 and currently at 4.5. Urine output about 20 to 30 cc/h. Review of Systems Narrative: NEGATIVE Medications/Allergies Home Medications ?Medication ?Instructions ?Recorded ?Confirmed ?Last Taken ?Type No Known Home Medications 03/09/25 03/09/25 Unknown History Allergies Allergy/AdvReac Type Severity Reaction Status Date / Time No Known Allergies Allergy Verified 03/09/25 11:07 Current Medications Generic Name Dose Route Start Last Admin Trade Name Freq PRN Reason Stop Dose Admin Heparin Sodium (Porcine) 5,000 unit 03/09/25 00:45 03/09/25 12:10 Heparin 5,000 Unit/Ml Inj 1 Ml SUBCUT 5,000 unit Q12H CHERY Administration Piperacillin Sod/Tazobactam 50 mls @ 12.5 mls/hr 03/09/25 05:00 03/09/25 12:12 Sod 3.375 gm/ Sodium Chloride IV 12.5 mls/hr Q8H CHERY Administration Protocol Lactated Ringer's 1,000 mls @ 150 mls/hr 03/09/25 00:45 03/09/25 16:53 Lactated Ringers IV 150 mls/hr .Q6H40M CHERY Administration Pantoprazole Sodium 40 mg 03/09/25 05:00 03/09/25 07:22 Pantoprazole 40 Mg Sdv IVP 40 mg DAILY CHERY Administration Vitals/I&O/Wt Last Vital Signs Temp 98 F 03/09/25 05:45 Pulse 81 03/09/25 16:56 Resp 23 H 03/09/25 16:45 BP 97/54 03/09/25 16:45 Pulse Ox 93 03/09/25 16:45 O2 Del Method Room Air 03/09/25 07:45 03/09/25 03/09/25 03/09/25 06:59 14:59 22:59 Intake Total 965.8 / 2015.8 2100 / 2100 1000 / 3100 Output Total 225 / 225 750 / 750 250 / 1000 Balance 740.8 / 1790.8 1350 / 1350 750 / 2100 Weight last 48 hrs Weight 86.5 kg Weight 77.111 kg Physical Exam Narrative: AWAKE , ALERT , NO DISTRESS ON ROOM AIR S1S2 RRR Lungs clear Abd-post op tenderness ext , no edema skin , no rash Urinary Catheter Management: Bagley: Cath Placed During This Visit: yes Reason for Continuing Indwelling Catheter: Accurate Measurement of Urinary Output in Critically Ill Patients Urinary Catheter Date of Insertion: 03/08/25 Urinary Catheter Time of Insertion: 23:18 Data 03/09/25 18:10 03/09/25 18:10 Micro: Microbiology 03/08/25 23:34 Gram Stain - Final Abdomen 03/08/25 20:01 Blood Culture - Preliminary Blood SPECIMEN COLLECTED 03/08/25 19:59 Blood Culture - Preliminary Blood SPECIMEN COLLECTED A&P Assessment and plan 1. Acute kidney injury: Plan: 1. Acute Kidney injury:: No baseline labs, patient now has WENCESLAO a due to ATN from severe sepsis. - Renal function worsening with persistent metabolic acidosis, plan to initiate CRRT tonight. He is on pressors-Levophed at 8 mcg/min - BMP every 6 hours while on CRRT 2. Sepsis secondary to perforated viscus, status post ex lap and washout, 3. Metabolic acidosis: Due to lactic acidosis, CRRT as above currently on bicarbonate drip but can DC once CRRT runs for 4 to 6 hours. Patient evaluated using audiovisual cart. Time spent 30 minutes. PDMP PDMP Reviewed: Not Reviewed Consult Attestations Medical Necessity Statement: PER [facility] Procedures Arterial Line Size (Gauge): 20 Coding Level of Care Code Acute Code for Chg Fwd Diagnoses Acute kidney injury N17.9
[2025-03-09] MEDS: norepinephrine 4 MG/250 ML BAG 15 MG IV (17:51)
--- NOTE | 2025-03-09 18:10 | ECG_ITS ---
[employer] Test Date: 2025-03-09 Pat Name: Tl Schumacher Department: Room: ICU11 Gender: Male Bladder Tier: : 1970 Requested By: Estiven Rivas Order Number: [id number] Santy MD: Jacinto Hernandez M.D. Measurements Intervals [place] Rate: 160 P: 0 VT: 0 QRS: 12 QRSD: 124 T: 72 QT: 302 QTc: 494 Interpretive Statements ATRIAL FIBRILLATION WITH RAPID VENTRICULAR RESPONSE POSSIBLE RIGHT VENTRICULAR CONDUCTION DELAY [RSR (QR) IN V1/V2] Compared to ECG 03/09/2025 20:46:32 NO SIGNIFICANT CHANGE Electronically Signed On 03-10-2025 17:29:49 ASSEMBLY MANAGER by Jacinto Hernandez M.D. [id number]
--- NOTE | 2025-03-09 18:18 | ECG_ITS ---
[facility] Date: 2025-03-09 Pat Name: Tl Schumacher Department: Room: ICU11 Gender: Male Energy Director: : 1970 Requested By: True Owen Order Number: [id number] Santy MD: Jacinto Hernandez M.D. Measurements Intervals [place] Rate: 152 P: 0 [place]: 0 QRS: 19 QRSD: 126 T: 89 QT: 307 QTc: 489 Interpretive Statements ATRIAL FIBRILLATION WITH RAPID VENTRICULAR RESPONSE MODERATE INTRAVENTRICULAR CONDUCTION DELAY [110+ ms QRS DURATION] MODERATE ST DEPRESSION [0.05+ mV ST DEPRESSION] CRITICAL TEST RESULT Compared to ECG 03/08/2025 20:12:07 Intraventricular conduction delay now present ST (T wave) deviation now present Sinus rhythm no longer present Septal myocardial infarct finding no longer present Electronically Signed On 03-10-2025 17:31:11 INVESTMENT REPRESENTATIVE by Jacinto Hernandez M.D. [email or web address] [id number]
[2025-03-09 18:23] LABS: Hematocrit 38.6 % (37-53); Hemoglobin 14.20 g/dL (11.27-16.99); Mean Corpuscular HGB Conc 36.8 g/dL (30-55); Mean Corpuscular Hemoglobin 32.3 pg (27-33); Mean Corpuscular Volume 87.7 fl (82-101); Nucleated Red Blood Cells % 0 %; Platelet Count 158 10^3/cmm (157-399); Red Blood Count 4.40 10^6/uL (3.85-5.65); White Blood Count 21.99 10^3/uL (3.29-11.43)
[2025-03-09 18:36] LABS: Troponin T (5th) Once 36 ng/L (0-15)
[2025-03-09 18:39] LABS: Lactate (Lactic Acid level) 3.0 mmol/L (0.5-2.2)
[2025-03-09 18:40] LABS: Estmated Average Glucose 123; Hemoglobin A1C 5.9 % (4.0-6.0)
[2025-03-09 18:48] LABS: Slide Review Slide Review Perform
[2025-03-09 18:50] LABS: Anion Gap 27.4 (5-19); Calcium 6.6 mg/dL (8.5-10.5); Carbon Dioxide 13 mmol/L (22-29); Chloride 95 mmol/L (98-107); Cholesterol 68 mg/dL (0-200); Glucose 97 mg/dL (65-115); HDL Cholesterol 13 mg/dL (60-100); Potassium 3.4 mmol/L (3.5-5.1); Sodium 132 mmol/L (136-145); Triglycerides 211 mg/dL (0-150)
[2025-03-09] MEDS: albumin 25 G/100 ML BAG 60 G IV (18:51)
[2025-03-09 18:56] LABS: Osmolality Calculated 317 mOsm/kg (285-295)
[2025-03-09 18:57] LABS: Blood Urea Nitrogen 132 mg/dL (6-20)
--- NOTE | 2025-03-09 19:14 | XRR_ITS ---
PROCEDURE INFORMATION: Exam: XR Chest Exam date and time: 03/09/2025 8:26 PM Age: 54 years old Clinical indication: Tachypnea; Additional info: Hig rr TECHNIQUE: Imaging protocol: Radiologic exam of the chest. Views: 1 view. COMPARISON: CR (CHEST, ) 03/09/2025 3:06 AM FINDINGS: Tubes, catheters and devices: The NG tube is positioned with its tip just within the stomach and its side-hole in the distal esophagus. Consider advancing approximately 9 cm for more optimal positioning. Right IJ approach central venous catheter positioned with its tip near the upper cavoatrial junction. No pneumothorax. Lungs: Irregular opacities in the left lung base. Pleural spaces: See Tubes, catheters and devices finding. Heart/Mediastinum: Large hiatal hernia. Bones/joints: Unremarkable. XR/XR chest 1V portable [id number] IMPRESSION: 1. The NG tube is positioned with its tip just within the stomach and its side-hole in the distal esophagus. Consider advancing approximately 9 cm for more optimal positioning. 2. Large hiatal hernia. 3. Irregular opacities in the left lung base.
--- NOTE | 2025-03-09 19:16 | PC.NURSE ---
reported increased bun and creatinine and increased levo to DR. Vásquez, plan to start CRRT. Dr. Lopez notified to consult surgery for dialysis line placement
--- NOTE | 2025-03-09 19:25 | PC.NURSE ---
HR 140s to 150s, EKG sent to HCP
[2025-03-09 19:27] LABS: Add Urine Microscopic? YES; Glucose Urine UA Negative (Normal); Nitrate Urine Negative (Negative); Specific Gravity, Urine 1.019 (1.005-1.030); Universal Test for UA Present (0)
[2025-03-09 19:36] LABS: Creatinine Urine, Random 65 mg/dL (39-259); Potassium, Radom Urine 35 mmol/L
[2025-03-09 19:37] LABS: Microalbum Creatinine Ratio Ur 108 mg/dL (0-20); Urine Random Chloride < 10 mmol/L; Urine Random Sodium 14 mmol/L
--- NOTE | 2025-03-09 20:10 | PC.NURSE ---
Heparin drip Order received from Dr. Rivas for heparin drip with no initial bolus.
--- NOTE | 2025-03-09 20:10 | PM.CONSULT ---
Providers/Reason For Consult Consulting Physician/Specialty*: Dr. Floyd general surgery Reason for Consult*: Temporary dialysis catheter insertion Attending Physician: Estiven Rivas MD History of Present Illness History of Present Illness Tl Schumacher is a 54 year old male whom surgery was consulted for temporary dialysis catheter. Nephrology planning on CRRT. Adequate pulses throughout. Medications/Allergies Home Medications ?Medication ?Instructions ?Recorded ?Confirmed ?Last Taken ?Type No Known Home Medications 03/09/25 03/09/25 Unknown History Allergies Allergy/AdvReac Type Severity Reaction Status Date / Time No Known Allergies Allergy Verified 03/09/25 11:07 Current Medications Generic Name Dose Route Start Last Admin Trade Name Freq PRN Reason Stop Dose Admin Heparin Sodium (Porcine) 5,000 unit 03/09/25 00:45 03/09/25 12:10 Heparin 5,000 Unit/Ml Inj 1 Ml SUBCUT 5,000 unit Q12H CHERY Administration Piperacillin Sod/Tazobactam 50 mls @ 12.5 mls/hr 03/09/25 05:00 03/09/25 12:12 Sod 3.375 gm/ Sodium Chloride IV 12.5 mls/hr Q8H CHERY Administration Protocol Sodium Bicarbonate 150 meq/ 1,150 mls @ 200 mls/hr 03/09/25 17:30 03/09/25 17:53 Dextrose IV 200 mls/hr .Q5H45M CHERY Administration Norepinephrine Bitartrate 4 mg in 250 mls @ 0 mls/hr 03/09/25 17:45 03/09/25 19:00 Levophed IV 8 mcg/min .Q0M CHERY 30 mls/hr Protocol Titration Per Protocol Albumin Human 25 g in 100 mls @ 60 mls/hr 03/09/25 18:00 03/09/25 18:51 Albumin IV 60 mls/hr Q8H CHERY Administration Pantoprazole Sodium 40 mg 03/09/25 05:00 03/09/25 07:22 Pantoprazole 40 Mg Sdv IVP 40 mg DAILY CHERY Administration Vitals/I&O/Wt Last Vital Signs Temp 98 F 03/09/25 05:45 Pulse 149 H 03/09/25 19:15 Resp 33 H 03/09/25 19:15 BP 91/71 03/09/25 19:15 Pulse Ox 92 03/09/25 19:15 O2 Del Method Room Air 11/28/25 07:45 03/09/25 03/09/25 03/09/25 06:59 14:59 22:59 Intake Total 965.8 / 2015.8 2100 / 2100 1447.25 / 3547.25 Output Total 225 / 225 750 / 750 440 / 1190 Balance 740.8 / 1790.8 1350 / 1350 1007.25 / 2357.25 Weight last 48 hrs Weight 190 lb 11.198 oz Weight 170 lb Physical Exam Narrative: Chest: Unlabored breathing room air. No lymphadenopathy. Heart: Tachycardic levo at 8 Abdomen: Soft, appropriately tender, mildly distended, drains murky. Urinary Catheter Management: Bagley: Cath Placed During This Visit: yes Reason for Continuing Indwelling Catheter: Accurate Measurement of Urinary Output in Critically Ill Patients Urinary Catheter Date of Insertion: 03/08/25 Urinary Catheter Time of Insertion: 23:18 Data 03/09/25 18:10 03/09/25 18:10 Micro: Microbiology 03/08/25 20:01 Blood Culture - Preliminary Blood NEGATIVE TO DATE 03/08/25 19:59 Blood Culture - Preliminary Blood NEGATIVE TO DATE 03/08/25 23:34 Gram Stain - Final Abdomen A&P Assessment and plan 1. Perforated appendicitis: Plan: 54-year-old male with perforated appendicitis. Now in renal failure. Surgery consulted for temporary dialysis catheter. Discussed risk and benefits and patient agreed to proceed with dialysis catheter insertion. PDMP PDMP Reviewed: Not Reviewed Procedures Arterial Line Size (Gauge): 20 Coding Level of Care Code 60002 Diagnoses Perforated appendicitis K35.32
--- NOTE | 2025-03-09 20:12 | PM.ACPR ---
Procedure/Consent Consent: Consent for Procedure: Consent obtained from patient, Risks & Benefits reviewed and Agrees to proceed with procedure Procedure Narrative: Discussed risks and benefits and consent was obtained to performed a temporary dialysis catheter. The right groin was prepped and draped in the usual sterile fashion. Ultrasound was used to identify the right common femoral vein. Local infiltration done using 5 cc of 1% lidocaine. A finder needle was used to access the right common femoral vein under ultrasound guidance. Able to draw venous blood. I then threaded a wire through the finder needle. I removed the needle and confirmed adequate placement of the wire in the right common femoral vein using ultrasound. Using an 11 blade a stab incision was done next to the wire to accommodate for the dilators. I serially dilated the tract using 2 dilators. I was then able to place the 20 cm dual-lumen temporary dialysis catheter using the Seldinger technique. I was able to draw blood and flushed easily through both lumens. Catheter was secured in place with sutures. A sterile dressing was applied. Catheter is ready for immediate use. Acute Procedures Arterial Line: Size (Gauge): 20
--- NOTE | 2025-03-09 20:15 | PC.NURSE ---
Addendum entered by Samantha Pitts RN 03/10/25 01:35: Order received from Dr. Rivas at this time to allow patient sips of water. Original Note: HR Patient's heart rhythm irregular. Dr. Rivas at bedside; rhythm discussed and no new orders received.
[2025-03-09 20:36] LABS: MRSA PCR OZH (swab) NOT DETECTED (Negative)
[2025-03-09 20:43] LABS: Anion Gap 28.2 (5-19); Calcium 6.8 mg/dL (8.5-10.5); Carbon Dioxide 12 mmol/L (22-29); Chloride 93 mmol/L (98-107); Glucose 134 mg/dL (65-115); Magnesium 3.1 mg/dL (1.7-2.3); Potassium 3.2 mmol/L (3.5-5.1); Sodium 130 mmol/L (136-145)
--- NOTE | 2025-03-09 20:45 | PC.NURSE ---
EKG/Oxygen Patient's heart rhythm irregular. EKG completed revealing afib RVR. Furthermore, patient's oxygen saturation remaining in the mid-high 80s, nasal cannula placed on patient. Dr. Elkins at bedside, EKG and oxygen requirements discussed; no new orders received.
--- NOTE | 2025-03-09 20:46 | ECG_ITS ---
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 Measurements Intervals [place] Rate: 136 P: 0 CO: 0 QRS: 17 QRSD: 105 T: 89 QT: 336 QTc: 506 Interpretive Statements ATRIAL FIBRILLATION WITH RAPID VENTRICULAR RESPONSE MINIMAL ST DEPRESSION [0.025+ mV ST DEPRESSION] ABNORMAL RHYTHM ECG Compared to ECG 03/08/2025 20:12:07 NO SIGNIFICANT CHANGE Electronically Signed On 03-10-2025 17:30:21 BODY MAN by Jacinto Hernandez M.D. [id number]
[2025-03-09 21:01] LABS: Osmolality Calculated 315 mOsm/kg (285-295)
--- NOTE | 2025-03-09 21:07 | PHA.VACGOAL ---
Vancomycin Goal - Goal Vancomycin Goal:: 15-20 mg/L Vancomycin Indication:: Other - Therapy Current therapy:: Pip/Tazo Day of therpy:: Day []of [] . Actual body weight (kg): 190 lb 11.198 oz - Data Labs: WBC 21.99 10^3/uL (3.29-11.43) H 03/09/25 18:10 RBC 4.40 10^6/uL (3.85-5.65) 03/09/25 18:10 Hgb 14.20 g/dL (11.27-16.99) 03/09/25 18:10 Hct 38.6 % (37-53) 03/09/25 18:10 MCV 87.7 fl (82-101) 03/09/25 18:10 MCH 32.3 pg (27-33) 03/09/25 18:10 MCHC 36.8 g/dL (30-55) 03/09/25 18:10 RDW 12.9 % (12.1-15.1) 03/09/25 18:10 Sodium 132 mmol/L (136-145) L 03/09/25 18:10 Potassium 3.4 mmol/L (3.5-5.1) L 03/09/25 18:10 Chloride 95 mmol/L (98-107) L 03/09/25 18:10 Carbon Dioxide 13 mmol/L (22-29) L 03/09/25 18:10 Anion Gap 27.4 (5-19) H 03/09/25 18:10 BUN 132 mg/dL (6-20) H* 03/09/25 18:10 Creatinine 4.5 mg/dL (0.7-1.2) H 03/09/25 18:10 GFR Calculation 13.6 mL/min (90-130) L 03/09/25 18:10 Last dialysis session:: Last session (STARTING ON CRRT) Treatment plan:: new consult Regimen:: INITIAL LOADING DOSE OF 2000 MG X 1 GIVEN. PLANNED TO PULSE DOSE DUE TO RENAL FUNCTION. HOWEVER, CRRT HAS BEEN STARTED THIS EVENING. Follow up:: RANDOM LEVEL @1800 WAS HIGH. WILL HOLD OFF ON STARTING A MAINTENANCE DOSE AND WILL GET A LEVEL WITH AM LABS ON 03/10. Rationale:: Laboratory Tests 03/09/25 03/09/25 18:10 19:06 WBC 21.99 H Nasal MRSA (PCR) Not detected Vancomycin Trough 28.5 H*
[2025-03-09 21:09] LABS: Blood Urea Nitrogen 132 mg/dL (6-20)
[2025-03-09] MEDS: PrismaSol BGK 4/2.5 - 5,000 mL Bag 5000 ML CRRT ×3 (21:10→21:13)
[2025-03-09] MEDS: heparin drip 25,000 UNIT/500 ML PREMIX 20.76 UNIT IV (21:24)
[2025-03-09] MEDS: amiodarone 150 MG/100 ML PREMIX 400 MG IV (21:30)
--- NOTE | 2025-03-09 21:30 | PC.NURSE ---
Amiodarone Patient's heart rate in the 160s. EKG completed revealing aflutter. Dr. Elkins notified; physician to place order for amiodarone drip.
[2025-03-09] MEDS: AMIODARONE HCL/D5W 900 MG/500 ML BAG 33.33 MG IV (21:57)
[2025-03-09 22:11] LABS: Anion Gap 26.1 (5-19); Calcium 6.4 mg/dL (8.5-10.5); Carbon Dioxide 14 mmol/L (22-29); Chloride 94 mmol/L (98-107); Glucose 174 mg/dL (65-115); Potassium 3.1 mmol/L (3.5-5.1); Sodium 131 mmol/L (136-145)
[2025-03-09 22:17] LABS: Osmolality Calculated 317 mOsm/kg (285-295)
[2025-03-09 22:19] LABS: Blood Urea Nitrogen 128 mg/dL (6-20)
--- NOTE | 2025-03-09 23:00 | PC.NURSE ---
CRRT CRRT initiated at 2144. At approximately 2230, Access pressures alarming extremely negative. Troubleshooting commenced, including flushing dialysis catheter, switching access and return lines, as well as decreasing blood flow rate. When blood flow rate decreased to 50 ml/min, access pressure normal. CRRT helpline contacted for further troubleshooting in case negative access alarm reoccurred; small business sales representative stated to check for clots and if no clots present, the dialysis catheter may need to be assessed. No clots visible. Soon after, the return pressure alarm stated pressure too low and alarmed. CRRT machine stated may be caused by blood flow rate being too low. Blood flow rate attempted to be increased which resulted in negative access pressure alarms. CRRT helpline contacted again, no further advice from small business sales representative besides assess dialysis catheter. CRRT stopped and blood returned to patient. Dr. Vásquez updated; order received to check stat BMP.
[2025-03-09 23:33] LABS: Albumin Level 2.0 g/dL (3.5-5.2); Anion Gap 25.0 (5-19); Calcium 6.4 mg/dL (8.5-10.5); Carbon Dioxide 16 mmol/L (22-29); Chloride 92 mmol/L (98-107); Glucose 189 mg/dL (65-115); Potassium 3.0 mmol/L (3.5-5.1); Sodium 130 mmol/L (136-145)
[2025-03-09 23:45] LABS: Blood Urea Nitrogen 124 mg/dL (6-20)
[2025-03-09 23:59] LABS: Hepatitis B Surface Antigen Non-Reactive (Nonreactive)
[2025-03-10] VITALS (86 sets, daily range): BP systolic 98–140; BP diastolic 54–82; PULSE 52–83; RESP 11–30; TEMP 36.2–37.1; O2SAT 83–96
--- NOTE | 2025-03-10 00:12 | PC.NURSE ---
Physician Communication Dr. Vásquez notified of stat lab results. Order received to keep dialysis stopped until dialysis catheter can be assessed by surgeon in the morning and to notify Dr. Floyd of events. Dr. Floyd notified of dialysis cessation and pressure alarms. Suggestion received from Dr. Floyd to heparinize CRRT machine and to notify Dr. Vásquez of suggestion. Dr. Vásquez contacted again and notified of Dr. Floyd's suggestion. Order received to keep CRRT paused until dialysis catheter assessment by surgeon in the AM.
--- NOTE | 2025-03-10 01:33 | PC.NURSE ---
EKG TIMES EKG performed at 2101 uploaded into patient chart at wrong time of 1809. Correct time of EKG on EKG report.
[2025-03-10] MEDS: albumin 25 G/100 ML BAG 60 G IV ×3 (02:25→17:33)
[2025-03-10 02:45] LABS: Albumin Level 2.1 g/dL (3.5-5.2); Anion Gap 24.1 (5-19); Calcium 6.3 mg/dL (8.5-10.5); Carbon Dioxide 18 mmol/L (22-29); Chloride 91 mmol/L (98-107); Glucose 246 mg/dL (65-115); Magnesium 2.8 mg/dL (1.7-2.3); Potassium 3.1 mmol/L (3.5-5.1); Sodium 130 mmol/L (136-145)
[2025-03-10 02:51] LABS: Blood Urea Nitrogen 123 mg/dL (6-20)
[2025-03-10 04:08] LABS: Hematocrit 30.8 % (37-53); Hemoglobin 11.40 g/dL (11.27-16.99); Mean Corpuscular HGB Conc 37.0 g/dL (30-55); Mean Corpuscular Hemoglobin 31.1 pg (27-33); Mean Corpuscular Volume 83.9 fl (82-101); Nucleated Red Blood Cells % 0 %; Platelet Count 135 10^3/cmm (157-399); Red Blood Count 3.67 10^6/uL (3.85-5.65); White Blood Count 21.99 10^3/uL (3.29-11.43)
[2025-03-10 04:32] LABS: Alanine Aminotransferase 47 U/L (0-41); Albumin Level 2.3 g/dL (3.5-5.2); Alkaline Phosphatase 70 U/L (40-130); Anion Gap 23.9 (5-19); Aspartate Amino Transferase 111 U/L (0-40); Calcium 6.5 mg/dL (8.5-10.5); Carbon Dioxide 18 mmol/L (22-29); Chloride 91 mmol/L (98-107); Globulin 2.1 g/dL (1.3-4.6); Glucose 249 mg/dL (65-115); Sodium 130 mmol/L (136-145); Total Protein 4.4 g/dL (6.6-8.7)
[2025-03-10 04:38] LABS: Partial Thromboplastin Time 42.8 SECONDS (23.9-36.7)
[2025-03-10] MEDS: heparin 5,000 unit/mL INJ 1 mL IVP ×2 (04:44→11:22)
[2025-03-10 04:49] LABS: Osmolality Calculated 318 mOsm/kg (285-295)
[2025-03-10 04:50] LABS: Blood Urea Nitrogen 124 mg/dL (6-20); Potassium 2.9 mmol/L (3.5-5.1)
--- NOTE | 2025-03-10 04:59 | PC.NURSE ---
KCL Dr. Vásquez notified of patient's potassium level of 2.9 as well as BUN 124 and 4.2 creatinine. Blood pressure, bicarb drip administering at 200 ml/hr, bicarb level, and levophed being paused also discussed. Order received to administer 40 meq KCL IV once.
[2025-03-10] MEDS: lidocaine 1% 5 ML in potassium chloride premix 100 ML 26.25 ML IV ×2 (05:24→12:54)
[2025-03-10] MEDS: piperacillin-tazobactam 3.375 GM in sodium chloride 0.9% (plus) 50 ML IV ×3 (05:29→22:21)
[2025-03-10] MEDS: pantoprazole 40 mg SDV IVP (05:29)
--- NOTE | 2025-03-10 08:54 | PC.NURSE ---
Communication with physician: Called Dr. Floyd to report drain output change from bedside shift report. Left LENA drain 40 ml of dark brown oily, foul smelling output. At shift report both drains serous fluid, left output slightly darker and cloudy than right. Discussed lab work and that architecture faculty member was unable to perform CRRT. Dr. Floyd reported that line is functioning appropriately and that he would discuss further plan of care with other providers caring for patient.
[2025-03-10 09:15] LABS: Albumin Level 2.2 g/dL (3.5-5.2); Anion Gap 22.1 (5-19); Calcium 6.4 mg/dL (8.5-10.5); Carbon Dioxide 21 mmol/L (22-29); Chloride 91 mmol/L (98-107); Glucose 264 mg/dL (65-115); Magnesium 3.0 mg/dL (1.7-2.3); Potassium 3.1 mmol/L (3.5-5.1); Sodium 131 mmol/L (136-145)
[2025-03-10 09:40] LABS: Blood Urea Nitrogen 121 mg/dL (6-20)
--- NOTE | 2025-03-10 09:57 | PC.NURSE ---
Dr. Rivas at bedside during rounding confirmed patient could have sips of water.
[2025-03-10] MEDS: potassium chloride premix 100 ML 50 MEQ IV (10:25)
--- NOTE | 2025-03-10 10:45 | P.MISC_ITS ---
Miscellaneous Note Note: Attempted to reach falafel cart cook at [phone] to discuss dialysis. No answer. Awaiting a call back.
--- NOTE | 2025-03-10 10:45 | PM.MISC ---
Miscellaneous Note Note: Attempted to reach pharmacy billing adjudicator at [phone] to discuss dialysis. No answer. Awaiting a call back.
[2025-03-10 11:10] LABS: Partial Thromboplastin Time 46.4 SECONDS (23.9-36.7)
[2025-03-10 12:14] LABS: Anion Gap 19.1 (5-19); Calcium 6.5 mg/dL (8.5-10.5); Carbon Dioxide 23 mmol/L (22-29); Chloride 91 mmol/L (98-107); Glucose 272 mg/dL (65-115); Potassium 3.1 mmol/L (3.5-5.1); Sodium 130 mmol/L (136-145)
--- NOTE | 2025-03-10 12:15 | P.PN_ITS ---
Subjective 2 Subjective: CRRT started last night but stopped after 2 hours due to machine alarms Medications: Reviewed: Yes Vitals/I&O/Wt Last Vital Signs Temp 98.8 F 03/10/25 08:15 Pulse 71 03/10/25 12:00 Resp 19 H 03/10/25 12:00 BP 116/70 03/10/25 12:00 Pulse Ox 90 03/10/25 12:00 O2 Del Method Room Air 03/10/25 12:00 O2 Flow Rate 2 03/10/25 00:30 03/09/25 03/10/25 03/10/25 22:59 06:59 14:59 Intake Total 1706.75 / 3806.75 4562.378 / 8369.128 1517.678 / 1517.678 Output Total 440 / 1190 2373 / 3563 450 / 450 Balance 1266.75 / 2616.75 2189.378 / 4806.128 1067.678 / 1067.678 Weight last 48 hrs Weight 92 kg Weight 86.5 kg Weight 77.111 kg Physical Exam 2 Narrative: AWAKE , ALERT , NO DISTRESS ON ROOM AIR S1S2 RRR Lungs clear Abd-post op tenderness ext , no edema skin , no rash Urinary Catheter Management: Bagley: Cath Placed During This Visit: yes Reason for Continuing Indwelling Catheter: Accurate Measurement of Urinary Output in Critically Ill Patients Urinary Catheter Date of Insertion: 03/08/25 Urinary Catheter Time of Insertion: 23:18 Data 03/10/25 03:38 03/10/25 11:41 Micro: Microbiology 03/08/25 23:34 Gram Stain - Final Abdomen Anaerobic Culture - Preliminary Wound Culture - Preliminary Gram Negative Rods 03/09/25 02:52 Urine Culture - Preliminary Urine,Clean Catch 03/08/25 20:01 Blood Culture - Preliminary Blood NEGATIVE TO DATE 03/08/25 19:59 Blood Culture - Preliminary Blood NEGATIVE TO DATE A&P Assessment and plan 1. Acute kidney injury: Plan: 1. Acute Kidney injury:: No baseline labs, patient now has WENCESLAO a due to ATN from severe sepsis. - s/p CRRT - stopped due to machine alarms , but UOP picked up anc Cr stable - continue on bicarb gtt and hold off crrt 2. Sepsis secondary to perforated viscus, status post ex lap and washout, 3. Metabolic acidosis: Due to lactic acidosis, on bicarbonate drip 4. Hypokalemia - replete Patient evaluated using audiovisual cart. Time spent 30 minutes. PDMP PDMP Reviewed: Not Reviewed Attestations 2 Medical Necessity Statement*: per [facility] Procedures Arterial Line Size (Gauge): 20 Coding Level of Care Code Acute Code for Chg Fwd Diagnoses Acute kidney injury N17.9
[2025-03-10 12:20] LABS: Blood Urea Nitrogen 120 mg/dL (6-20); Osmolality Calculated 318 mOsm/kg (285-295)
[2025-03-10] MEDS: morphine 4 mg/mL SDV 1 mL 2 MG IVP (12:34)
--- NOTE | 2025-03-10 14:07 | P.PN_ITS ---
Subjective 2 Subjective: CRRT started last night but stopped after 2 hours due to machine alarms the patient BP is better and acidosis is resolving after bicarb infusion HD catheter was placed by the surgeon, directly observed and is currently working with good back and forward flow, however likely the CRRT machine did not work due to filter clot? nephro onboard, patient having mild to moderate pain at the surgery site however overall doing better Medications: Reviewed: Yes Vitals/I&O/Wt Last Vital Signs Temp 98.8 F 03/10/25 08:15 Pulse 71 03/10/25 12:00 Resp 14 03/10/25 12:34 BP 116/70 03/10/25 12:00 Pulse Ox 92 03/10/25 12:34 O2 Del Method Room Air 03/10/25 12:00 O2 Flow Rate 2 03/10/25 00:30 03/09/25 03/10/25 03/10/25 22:59 06:59 14:59 Intake Total 1706.75 / 3806.75 4562.378 / 8369.128 1767.678 / 1767.678 Output Total 440 / 1190 2373 / 3563 450 / 450 Balance 1266.75 / 2616.75 2189.378 / 4806.128 1317.678 / 1317.678 Weight last 48 hrs Weight 92 kg Weight 86.5 kg Weight 77.111 kg Physical Exam 2 Narrative: General: Alert and oriented, lying comfortably without any distress, on room air, able to complete his sentences, on fluid resuscitation HEENT: Normocephalic, atraumatic, grossly unremarkable exam Cardio: normal rate rhythm, normal S1-S2 without any murmurs, rubs, or gallops and JVD normal Respiratory: normal vascular breathing on auscultation without any wheezes, stridor, rhonchi GI: Abdomen soft, nondistended, normoactive bowel sounds present all 4 quadrants, with 2 drains at both lower quadrants having serosangious discharge, dressing in the middle for exp lap Neuro: intact cranial nerves motor and sensory and cerebellar/coordination function without any focal neurological deficit Behavior: Appropriate and cooperative Extremities: Adequate palpable pulses, no edema or cyanosis observed, folleys cath in place Skin: grossly unremarkable exam Urinary Catheter Management: Bagley: Cath Placed During This Visit: yes Reason for Continuing Indwelling Catheter: Accurate Measurement of Urinary Output in Critically Ill Patients Urinary Catheter Date of Insertion: 03/08/25 Urinary Catheter Time of Insertion: 23:18 Data 03/10/25 03:38 03/10/25 11:41 Micro: Microbiology 03/08/25 23:34 Gram Stain - Final Abdomen Anaerobic Culture - Preliminary Wound Culture - Preliminary Gram Negative Rods 03/09/25 02:52 Urine Culture - Preliminary Urine,Clean Catch 03/08/25 20:01 Blood Culture - Preliminary Blood NEGATIVE TO DATE 03/08/25 19:59 Blood Culture - Preliminary Blood NEGATIVE TO DATE A&P Assessment and plan 1. Septic shock, due to unspecified organism: - Secondary to intra-abdominal source from ruptured appendix and abdominal abscesses - Patient is fluid responsive, and having adequate pulses with adequate capillary refill, continue fluid resuscitation and aggressive fluid to maintain the MAP above 65 - 2 sets of blood cultures and growing gram negative rods, urine cultures, to follow - Continue Zosyn and vancomycin, - Lactate series improving - Maintain 2 IV bore cannulas -Patient having MAP over 65, required bicarb infusion and NE. - start steriods hydrcortisone stress dose 50 mg IV every 6 -Monitor hemodynamics -Intake and output monitoring 2. Acute kidney injury: - Patient baseline kidney status is unknown and since the patient BUN and lactate is high, nephrology consulted and is on board. -VERIFIER was started yesterday evening and only continued for 2 hours and likely had filter clotting, hemodialysis catheter in the right femoral area adequately working. - Monitor intake and output through Bagley's catheter - Urine cultures prelim negative - Natremia correction of electrolytes accordingly 3. Perforated viscus: - S/p exploratory laparotomy for ruptured appendix and abdominal wash for intra- abdominal abscesses - Continue Zosyn and vancomycin as pharmacist guided dosing - Adequate analgesia - Follow surgery plan and recommendation - Patient on NGT - Diet as per surgery plan and recommendation 4. Hypokalemia: Continue potassium replacement and to monitor in the morning 5. Electrolyte imbalance: Secondary to severe WENCESLAO, continue to monitor electrolytes and correction accordingly 6. Encounter for screening involving social determinants of health (SDoH): Patient was brought in by the police custody due to charges of theft/stolen truck as per the officer on duty observing the patient as inpatient in ICU. Further discussion by the officer has been made and it was informed that the patient may go through some legal documentation or processing for dropping of the charges? However case operator is on board has been informed about the situation and to help the patient as inpatient for his current critical condition and also to proceed according to the policy/protocol required for him postdischarge with optimization of his current clinical condition. PDMP PDMP Reviewed: Not Reviewed Attestations 2 Medical Necessity Statement*: Patient will stay more than 2 midnights for the management of septic shock resistant to fluid resuscitation, ruptured abdominal viscus s/p ex lap and requiring hemodialysis/CRRT for severe class III WENCESLAO or WENCESLAO on the top of CKD? Time Spent in Patient Care: 16 - 35 minutes Critical Care Time: The high probability of a clinically significant, sudden or life threatening deterioration, as referenced in this documentation, required my full and direct attention, intervention and personal management. The critical care time shown is in addition to time spent performing any reported separately billable procedures and includes the following: [x] Data and vital sign review and interpretation [x ] Patient assessment, examination and intervention [x] Medication orders and management [x] Patient/Family updates as able [x] Care Coordination and Documentation. Critical Care Time (min): 40 Procedures Arterial Line Size (Gauge): 20 Coding Level of Care Code Critical Care >/= 30 minutes Diagnoses Septic shock, due to unspecified organism A41.9; R65.21 Acute kidney injury N17.9 Perforated viscus R19.8 Hypokalemia E87.6 Electrolyte imbalance E87.8 Encounter for screening involving social determinants of health (SDoH) Z13.9
[2025-03-10 14:38] LABS: Albumin Level 2.6 g/dL (3.5-5.2); Anion Gap 19.1 (5-19); Calcium 6.4 mg/dL (8.5-10.5); Carbon Dioxide 24 mmol/L (22-29); Chloride 91 mmol/L (98-107); Glucose 251 mg/dL (65-115); Magnesium 3.0 mg/dL (1.7-2.3); Potassium 3.1 mmol/L (3.5-5.1); Sodium 131 mmol/L (136-145)
[2025-03-10 14:47] LABS: Blood Urea Nitrogen 122 mg/dL (6-20)
--- NOTE | 2025-03-10 14:52 | PM.PN ---
Subjective Subjective: Now off pressors Making urine about 600 cc per shift off diuretics White count down Afebrile Abdomen benign Left drain murky right drain serosanguineous Reevaluated right groin dialysis catheter and I was able to flush and draw blood easily therefore fully functional Vitals/I&O/Wt Last Vital Signs Temp 98.8 F 03/10/25 12:15 Pulse 62 03/10/25 14:30 Resp 30 H 03/10/25 14:30 BP 116/72 03/10/25 14:30 Pulse Ox 93 03/10/25 14:30 O2 Del Method Room Air 03/10/25 14:30 O2 Flow Rate 2 03/10/25 00:30 03/09/25 03/10/25 03/10/25 22:59 06:59 14:59 Intake Total 1706.75 / 3806.75 4562.378 / 8369.128 1767.678 / 1767.678 Output Total 440 / 1190 2373 / 3563 900 / 900 Balance 1266.75 / 2616.75 2189.378 / 4806.128 867.678 / 867.678 Weight last 48 hrs Weight 202 lb 13.204 oz Weight 190 lb 11.198 oz Weight 170 lb Physical Exam Narrative: Chest: Unlabored breathing room air. No lymphadenopathy. Heart: Regular rate and rhythm. Off Levophed Abdomen: Soft, appropriately tender, mildly distended. No masses or lymphadenopathy. Right drain serosanguineous left drain murky Right groin dialysis catheter fully functional Urinary Catheter Management: Bagley: Cath Placed During This Visit: yes Reason for Continuing Indwelling Catheter: Accurate Measurement of Urinary Output in Critically Ill Patients Urinary Catheter Date of Insertion: 03/08/25 Urinary Catheter Time of Insertion: 23:18 Data 03/10/25 03:38 03/10/25 14:00 Micro: Microbiology 03/08/25 23:34 Gram Stain - Final Abdomen Anaerobic Culture - Preliminary Wound Culture - Preliminary Gram Negative Rods 03/09/25 02:52 Urine Culture - Preliminary Urine,Clean Catch 03/08/25 20:01 Blood Culture - Preliminary Blood NEGATIVE TO DATE 03/08/25 19:59 Blood Culture - Preliminary Blood NEGATIVE TO DATE A&P Assessment and plan 1. Perforated appendicitis: 2. Acute kidney injury: Plan: 54-year-old male who presented with a perforated appendicitis. Postoperative day 2 from ex lap and appendectomy and abdominal washout. Noticed left drain is murky but that is expected. Clinically doing better. Off pressors and making urine. I tested the dialysis catheter in the right groin once again and I was able to flush and draw blood easily therefore it is fully functional. Overnight nurse had issues running CRRT. I discussed both of these things with the issuer. From my perspective the only alternative would be to proceed with a tunneled dialysis catheter in the right neck but this is not the standard of care since we are expecting renal recovery. I presented the possibility of trying diuretics or even trying regular dialysis. Dental Assisting Instructor agreed with my view and do not think a tunneled dialysis catheter is warranted. They will try intermittent dialysis and if they still have issues they could try diuretics or as a last resort to proceed with a tunneled dialysis catheter. I have also discussed this case extensively with the hospitalist. From a surgical perspective we are awaiting return of bowel function. Continue IV antibiotics. Continue NG tube to low continuous suction. ICU care per hospitalist. PDMP PDMP Reviewed: Not Reviewed Attestations Medical Necessity Statement*: N/A Procedures Arterial Line Size (Gauge): 20 Coding Level of Care Code 92752 Diagnoses Perforated appendicitis K35.32 Acute kidney injury N17.9
[2025-03-10] MEDS: hydrocortisone 100 mg/2 mL SDV 50 MG IVP ×2 (15:10→21:36)
--- NOTE | 2025-03-10 16:18 | PC.NURSE ---
Heparin Drip: Telephone order from Dr. Russ to discontinue heparin drip.
[2025-03-10] MEDS: AMIODARONE HCL/D5W 900 MG/500 ML BAG 16.67 MG IV (17:29)
--- NOTE | 2025-03-10 17:52 | USCV_ITS ---
Tl Schumacher Age: 54 Gender: M : 1970 Exam Date: 03/10/2025 07:44 Ordering Phys: Ynes Smyth MD Technologist: Danial Chavez Exam Location: [facility] – [place] Indication: chf BP: 110 / 61 HR: 68 Rhythm: Sinus Technical Quality: Suboptimal MEASUREMENTS (Male / Female) Normal Values 2D ECHO LV Ejection Fraction MOD 4C 75.7 % LV Ejection Fraction MOD 2C 58.9 % LV Ejection Fraction 2C AL 57.4 % RA Systolic Volume 4C AL 34.5 ml RA Systolic Volume 4C MOD 33.1 ml LA Sys Volume AL 48.7 cm cubed LA Sys Volume Index AL 22.4 cm cubed/m squared IVC Diameter 1.8 cm DOPPLER AV Peak Velocity 135.0 cm/s LVOT Peak Velocity 130.0 cm/s MV Peak Velocity 76.0 cm/s MV Area PHT 4.7 cm squared Mitral E to A Ratio 0.9 TR Peak Velocity 150.0 cm/s TR Peak Gradient 9.0 mmHg TR Mean Velocity 122.0 cm/s TR Mean Gradient 6.5 mmHg TR Velocity Time Integral 31.4 cm FINDINGS Left Ventricle Normal left ventricular size, systolic function and wall thickness with no regional wall motion abnormality. Left ventricular ejection fraction is 59%. Normal left ventricular diastolic function. Right Ventricle Normal right ventricular size and systolic function. Right Atrium Normal right atrial size. Left Atrium Normal left atrial size. IA Septum Normal appearance of the interatrial septum. Mitral Valve Normal mitral valve structure. No mitral valve stenosis or regurgitation. Aortic Valve Normal aortic valve structure. No aortic valve stenosis or regurgitation. Tricuspid Valve Normal tricuspid valve structure. Trace regurgitation. Normal pulmonary pressure. Pulmonic Valve Normal pulmonic valve structure. No pulmonic valve stenosis or regurgitation. Pericardium No pericardial effusion. Aorta Normal diameter of the aortic root and ascending thoracic aorta. IVC Normal IVC diameter. CONCLUSIONS Normal left ventricular size, systolic function and wall thickness with ejection fraction of 59%. Normal right ventricular size and systolic function. No significant valvular abnormalities. Jacinto Hernandez MD, FACC (Electronically Signed) Final Date: 10 March 2025 14:14 S
--- NOTE | 2025-03-10 18:45 | PC.NURSE ---
Communication with provider: Spoke with dr Rivas regarding amio drip. Amio paused for heart rate in high 50's. SR, not symptomatic, BP 130/77.
[2025-03-10] MEDS: heparin, porcine 1,000 unit/mL INJ 10 mL 10000 UNIT INTRACATH (20:39)
[2025-03-10 21:31] LABS: Albumin Level 3.0 g/dL (3.5-5.2); Anion Gap 18.1 (5-19); Calcium 7.2 mg/dL (8.5-10.5); Carbon Dioxide 28 mmol/L (22-29); Chloride 96 mmol/L (98-107); Glucose 134 mg/dL (65-115); Magnesium 3.0 mg/dL (1.7-2.3); Potassium 3.1 mmol/L (3.5-5.1); Sodium 139 mmol/L (136-145)
[2025-03-10 21:49] LABS: Blood Urea Nitrogen 98 mg/dL (6-20)
[2025-03-11] VITALS (95 sets, daily range): BP systolic 110–144; BP diastolic 64–93; PULSE 45–85; RESP 13–29; TEMP 36.4–37.5; O2SAT 85–95
[2025-03-11] MEDS: hydrocortisone 100 mg/2 mL SDV 50 MG IVP ×4 (01:16→21:04)
[2025-03-11] MEDS: albumin 25 G/100 ML BAG 60 G IV ×3 (01:17→17:15)
[2025-03-11 02:23] LABS: Albumin Level 2.9 g/dL (3.5-5.2); Anion Gap 19.5 (5-19); Calcium 7.1 mg/dL (8.5-10.5); Carbon Dioxide 24 mmol/L (22-29); Chloride 98 mmol/L (98-107); Glucose 148 mg/dL (65-115); Magnesium 2.8 mg/dL (1.7-2.3); Potassium 3.5 mmol/L (3.5-5.1); Sodium 138 mmol/L (136-145)
[2025-03-11 02:33] LABS: Blood Urea Nitrogen 89 mg/dL (6-20)
[2025-03-11] MEDS: piperacillin-tazobactam 3.375 GM in sodium chloride 0.9% (plus) 50 ML IV ×3 (04:11→21:06)
[2025-03-11] MEDS: pantoprazole 40 mg SDV IVP (04:12)
[2025-03-11 04:17] LABS: Hematocrit 25.4 % (37-53); Hemoglobin 9.50 g/dL (11.27-16.99); Mean Corpuscular HGB Conc 37.4 g/dL (30-55); Mean Corpuscular Hemoglobin 32.2 pg (27-33); Mean Corpuscular Volume 86.1 fl (82-101); Nucleated Red Blood Cells % 0.1 %; Platelet Count 100 10^3/cmm (157-399); Red Blood Count 2.95 10^6/uL (3.85-5.65); White Blood Count 20.11 10^3/uL (3.29-11.43)
[2025-03-11 04:42] LABS: Alanine Aminotransferase 30 U/L (0-41); Albumin Level 3.0 g/dL (3.5-5.2); Alkaline Phosphatase 63 U/L (40-130); Anion Gap 18.6 (5-19); Aspartate Amino Transferase 77 U/L (0-40); Calcium 7.1 mg/dL (8.5-10.5); Carbon Dioxide 26 mmol/L (22-29); Chloride 98 mmol/L (98-107); Globulin 1.7 g/dL (1.3-4.6); Glucose 153 mg/dL (65-115); Magnesium 3.0 mg/dL (1.7-2.3); Osmolality Calculated 318 mOsm/kg (285-295); Potassium 3.6 mmol/L (3.5-5.1); Sodium 139 mmol/L (136-145); Total Protein 4.7 g/dL (6.6-8.7)
[2025-03-11 04:48] LABS: Slide Review Slide Review Perform
[2025-03-11 04:59] LABS: Blood Urea Nitrogen 89 mg/dL (6-20)
[2025-03-11 08:52] LABS: Albumin Level 2.9 g/dL (3.5-5.2); Anion Gap 17.5 (5-19); Calcium 7.3 mg/dL (8.5-10.5); Carbon Dioxide 25 mmol/L (22-29); Chloride 98 mmol/L (98-107); Glucose 155 mg/dL (65-115); Magnesium 3.0 mg/dL (1.7-2.3); Potassium 3.5 mmol/L (3.5-5.1); Sodium 137 mmol/L (136-145)
--- NOTE | 2025-03-11 08:58 | CTR_ITS ---
PROCEDURE INFORMATION: Exam: CT Abdomen And Pelvis With Contrast Exam date and time: 03/11/2025 9:25 AM Age: 54 years old Clinical indication: Other: Hb drop; Additional info: Significant concerning hb drop to rule out intra-ab bleeding TECHNIQUE: Imaging protocol: Computed tomography of the abdomen and pelvis with contrast. Radiation optimization: All CT scans at this facility use at least one of these dose optimization techniques: automated exposure control; mA and/or kV adjustment per patient size (includes targeted exams where dose is matched to clinical indication); or iterative reconstruction. Contrast material: OMIN 30; Contrast volume: 100 ml; Contrast route: INTRAVENOUS (IV); COMPARISON: CT abdomen pelvis wo con [id number] 03/08/2025 9:23 PM RADIATION DOSE METRICS: Total DLP (mGy-cm): 864.1 FINDINGS: Tubes, catheters and devices: NG tube in the stomach. Left-sided surgical drain ending in the left upper quadrant. Right-sided surgical drain ending in the mid pelvis. Right groin central line tip in the right common iliac vein. Lungs: Bibasilar compression atelectasis or consolidation. Pleural spaces: Interval increase bilateral pleural effusions. Liver: Stable hepatic hypodensities. 18.9 cm enlarged liver. Gallbladder and biliary ducts: Normal. No calcified stones. No ductal dilation. Pancreas: Normal. No ductal dilation. Spleen: Normal. No splenomegaly. Adrenal glands: Normal. No mass. Kidneys and ureters: Normal. No hydronephrosis. Stomach and bowel: Bowel wall thickening involving the descending colon and rectosigmoid colon. Few mildly dilated small bowel loops in the upper abdomen. No definite transitional point. multiple small bowel loops with bowel wall thickening. Appendix: Post appendectomy changes. Intraperitoneal space: Small free intraperitoneal air likely iatrogenic. New abdominal midline surgical clips. Small abdominopelvic ascites. Vasculature: Mild calcified atherosclerotic changes are seen throughout the abdominal aorta. Lymph nodes: Unremarkable. No enlarged lymph nodes. Urinary bladder: Bagley in the bladder. Reproductive: Unremarkable as visualized. Bones/joints: Unremarkable. No acute fracture. Soft tissues: Generalized soft tissue anasarca. CT/CT abdomen pelvis w con* [id number] IMPRESSION: 1. No retroperitoneal hematoma. 2. Interval increase in bilateral pleural effusions. 3. Bibasilar compression atelectasis or consolidation. 4. Small free intraperitoneal air likely iatrogenic. 5. Bowel wall thickening involving the descending colon and rectosigmoid colon. Colitis can not be excluded. 6. Few mildly dilated small bowel loops in the upper abdomen. No definite transitional point. Finding could be secondary to ileus. Continued imaging follow-up is advised. 7. Multiple small bowel loops with bowel wall thickening. Enteritis can not be excluded. 8. Hepatomegaly. 9. Small abdominopelvic ascites. 10. Generalized soft tissue anasarca.
[2025-03-11 09:14] LABS: Blood Urea Nitrogen 93 mg/dL (6-20)
[2025-03-11] MEDS: iohexol 350 mg/mL 500 mL Btl (per mL) IV (09:30)
--- NOTE | 2025-03-11 09:44 | P.PN_ITS ---
Subjective 2 Subjective: s/p HD yesterday and tolerated well Medications: Reviewed: Yes Vitals/I&O/Wt Last Vital Signs Temp 99.5 F 03/11/25 07:21 Pulse 65 03/11/25 06:00 Resp 22 H 03/11/25 06:00 BP 116/73 03/11/25 06:00 Pulse Ox 92 03/11/25 06:00 O2 Del Method Room Air 03/10/25 18:00 O2 Flow Rate 2 03/10/25 00:30 03/10/25 03/11/25 03/11/25 22:59 06:59 14:59 Intake Total 1732.910 / 3500.588 1750 / 5250.588 300 / 300 Output Total 1530 / 2430 3320 / 5750 Balance 202.910 / 1070.588 -1570 / -499.412 300 / 300 Weight last 48 hrs Weight 91 kg Weight 91.5 kg Weight 92 kg Physical Exam 2 Narrative: AWAKE , ALERT , NO DISTRESS ON ROOM AIR S1S2 RRR Lungs clear Abd-post op tenderness ext , no edema skin , no rash Urinary Catheter Management: Bagley: Cath Placed During This Visit: yes Reason for Continuing Indwelling Catheter: Accurate Measurement of Urinary Output in Critically Ill Patients Urinary Catheter Date of Insertion: 03/08/25 Urinary Catheter Time of Insertion: 23:18 Data 03/11/25 04:04 03/11/25 08:19 Micro: Microbiology 03/08/25 23:34 Gram Stain - Final Abdomen Anaerobic Culture - Preliminary Wound Culture - Preliminary Gram Negative Rods 03/09/25 02:52 Urine Culture - Preliminary Urine,Clean Catch A&P Assessment and plan 1. Acute kidney injury: Plan: 1. Acute Kidney injury:: No baseline labs, patient now has WENCESLAO a due to ATN from severe sepsis. - s/p CRRT - stopped due to machine alarms , but tolerated HD well last night - will plan for HD again today after CT scan 2. Sepsis secondary to perforated viscus, status post ex lap and washout, awaiting return of bowel function 3. Metabolic acidosis: Due to lactic acidosis, s/p bicarbonate drip , improved 4. Hypokalemia - repleted 5. Anemia , plan for CT scan abdomen with contrast to rule bleed Patient evaluated using audiovisual cart. Time spent 30 minutes. PDMP PDMP Reviewed: Not Reviewed Attestations 2 Medical Necessity Statement*: per medicine Procedures Arterial Line Size (Gauge): 20 Coding Level of Care Code Acute Code for Chg Fwd Diagnoses Acute kidney injury N17.9
--- NOTE | 2025-03-11 09:44 | XRR_ITS ---
PROCEDURE INFORMATION: Exam: XR Chest Exam date and time: 03/11/2025 10:54 AM Age: 54 years old Clinical indication: Shortness of breath; Additional info: Increased o2 demand, post surgery TECHNIQUE: Imaging protocol: Radiologic exam of the chest. Views: 1 view. COMPARISON: CR (CHEST, ) 03/09/2025 8:26 PM FINDINGS: Tubes, catheters and devices: Right neck central line tip is at cavoatrial junction. NG tube in the stomach. Lungs: Pulmonary edema. No significant change in left lower lung field airspace disease. Right basilar linear density. Pleural spaces: No pneumothorax. Heart/Mediastinum: Cardiomediastinal silhouette is stable. Bones/joints: Unremarkable. XR/XR chest 1V portable [id number] IMPRESSION: 1. Pulmonary edema. 2. No significant change in left lower lung field airspace disease. 3. Right basilar linear density. Finding could represent scarring or atelectasis.
--- NOTE | 2025-03-11 09:45 | P.PN_ITS ---
Subjective 2 Subjective: No acute events overnight Got hemodialysis yesterday White count down Afebrile Left drain murky Right drain serous CT scan obtained for dropping hemoglobin. I reviewed the imaging myself and I do not see any evidence of bleeding or obvious hematoma. Changes consistent with postop findings. Vitals/I&O/Wt Last Vital Signs Temp 99.5 F 03/11/25 07:21 Pulse 65 03/11/25 06:00 Resp 22 H 03/11/25 06:00 BP 116/73 03/11/25 06:00 Pulse Ox 92 03/11/25 06:00 O2 Del Method Room Air 03/10/25 18:00 O2 Flow Rate 2 03/10/25 00:30 03/10/25 03/11/25 03/11/25 22:59 06:59 14:59 Intake Total 1732.910 / 3500.588 1750 / 5250.588 300 / 300 Output Total 1530 / 2430 3320 / 5750 Balance 202.910 / 1070.588 -1570 / -499.412 300 / 300 Weight last 48 hrs Weight 200 lb 9.93 oz Weight 201 lb 11.567 oz Weight 202 lb 13.204 oz Physical Exam 2 Narrative: Chest: Unlabored breathing room air. No lymphadenopathy. Heart: Regular rate and rhythm. Abdomen: Soft, nontender, nondistended. Incision clean dry intact. Left drain murky. Right drain serous. Right groin line in place Urinary Catheter Management: Bagley: Cath Placed During This Visit: yes Reason for Continuing Indwelling Catheter: Accurate Measurement of Urinary Output in Critically Ill Patients Urinary Catheter Date of Insertion: 03/08/25 Urinary Catheter Time of Insertion: 23:18 Data 03/11/25 04:04 03/11/25 08:19 Micro: Microbiology 03/08/25 23:34 Gram Stain - Final Abdomen Anaerobic Culture - Preliminary Wound Culture - Preliminary Gram Negative Rods 03/09/25 02:52 Urine Culture - Preliminary Urine,Clean Catch A&P Assessment and plan 1. Perforated appendicitis: Plan: 54-year-old male who presented with perforated appendicitis. Status post exploratory laparotomy and abdominal washout and appendectomy. Clinically improving. Discussed with hospitalist hemoglobin drop. Reviewed CT scan images myself and I cannot see any evidence of surgical bleeding. No retroperitoneal hematoma. No concern for GI bleed. Hold heparin. Await return of bowel function. Keep NG tube to low continuous suction. Continue IV antibiotics. Rest of care per hospitalist. PDMP PDMP Reviewed: Not Reviewed Attestations 2 Medical Necessity Statement*: N/A Procedures Arterial Line Size (Gauge): 20 Coding Level of Care Code 70564 Diagnoses Perforated appendicitis K35.32
--- NOTE | 2025-03-11 10:32 | PM.PN ---
Subjective Subjective: no acute issues overnight, the patient had a session of HD yesterday and overall improving clinically however had a hb drop, CT scan with contrast for abd pelvis done, and i reviewed, it did not show any retroperitoneal hematoma or any signs of bleeding CXR showed signs of pulm edema Medications: Reviewed: Yes Vitals/I&O/Wt Last Vital Signs Temp 99.5 F 03/11/25 07:21 Pulse 66 03/11/25 10:17 Resp 16 03/11/25 10:17 BP 128/69 03/11/25 09:45 Pulse Ox 94 03/11/25 10:17 O2 Del Method Nasal Cannula 03/11/25 10:17 O2 Flow Rate 2 03/11/25 10:17 03/10/25 03/11/25 03/11/25 22:59 06:59 14:59 Intake Total 1732.910 / 3500.588 1750 / 5250.588 300 / 300 Output Total 1530 / 2430 3320 / 5750 Balance 202.910 / 1070.588 -1570 / -499.412 300 / 300 Weight last 48 hrs Weight 91 kg Weight 91.5 kg Weight 92 kg Physical Exam Narrative: General: Alert and oriented, lying comfortably without any distress, on room air, able to complete his sentences, on fluid resuscitation HEENT: Normocephalic, atraumatic, grossly unremarkable exam Cardio: normal rate rhythm, normal S1-S2 without any murmurs, rubs, or gallops and JVD normal Respiratory: normal vascular breathing on auscultation without any wheezes, stridor, rhonchi GI: Abdomen soft, nondistended, normoactive bowel sounds present all 4 quadrants, with 2 drains at both lower quadrants having serosangious discharge, dressing in the middle for exp lap and is clean Neuro: intact cranial nerves motor and sensory and cerebellar/coordination function without any focal neurological deficit Behavior: Appropriate and cooperative Extremities: Adequate palpable pulses, no edema or cyanosis observed, folleys cath in place. Urinary Catheter Management: Bagley: Cath Placed During This Visit: yes Reason for Continuing Indwelling Catheter: Accurate Measurement of Urinary Output in Critically Ill Patients Urinary Catheter Date of Insertion: 03/08/25 Urinary Catheter Time of Insertion: 23:18 Data 03/11/25 04:04 03/11/25 08:19 Micro: Microbiology 03/08/25 23:34 Gram Stain - Final Abdomen Anaerobic Culture - Preliminary Wound Culture - Preliminary Gram Negative Rods 03/09/25 02:52 Urine Culture - Preliminary Urine,Clean Catch A&P Assessment and plan 1. Acute anemia: patient had significant drop in the hb from the time of admission with labile vitals concerning for intra abd bleed and therefore CT abd pelvis with contrast done, i reviewed the scan and no signs of bleeding found to cont to monitor cbc anemia work up requested 2. Septic shock, due to unspecified organism: - currently resolving, Secondary to intra-abdominal source from ruptured appendix and abdominal abscesses - patient initial fluid responsive, later resistant and had NE running for ~24hours and weaned off - 2 sets of blood cultures and growing gram negative rods and to follow the final report with sensitivity - urine cultures prelim negative - Continue Zosyn and vancomycin, - Lactate series improving and adequate capillary refill observed - Maintain 2 IV bore cannulas -Patient having MAP over 65 - cont steriods hydrcortisone stress dose 50 mg IV every 6 for 24 hours and if BP remained stable without vasopressors support, then to discont it -Monitor hemodynamics -Intake and output monitoring 3. Perforated viscus: - S/p exploratory laparotomy for ruptured appendix and abdominal wash for intra-abdominal abscesses - Continue Zosyn and vancomycin as pharmacist guided dosing - Adequate analgesia - Follow surgery plan and recommendation - Patient on NGT - Diet as per surgery plan and recommendation 4. Acute kidney injury: - Patient baseline kidney status is unknown and since the patient BUN and lactate is high, nephrology consulted and is on board. -ARMATURE TESTER was started and was not continued due to technical issue of the machine, pt later had HD session and tolerated well. today recieved contrast and will get HD session in the afternoon, Flight/Transport Nurse made aware and is onboard, appreciate the input - Monitor intake and output through Bagley's catheter 5. Atrial fibrillation: Patient had atrial fibrillation episode, initially the EKG was more or less sinus tachycardia and later evolved into atrial fibrillation and started on amiodarone. Current heart rate is controlled and off amiodarone Echo showed ejection fraction of 59% normal left atrium. Likely atrial fibrillation triggered by septic shock. cont to monitor by precipitation equipment tender 6. Hypoalbuminemia: recieved albumin replacement cont to follow and monitor 7. Hypokalemia: Continue potassium replacement and to monitor in the morning 8. Electrolyte imbalance: Secondary to severe WENCESLAO, continue to monitor electrolytes and correction accordingly corrected calcium low and given 2gm martina glu, to monitor and follow 9. Encounter for screening involving social determinants of health (SDoH): Patient was brought in by the police custody due to charges of theft/stolen truck as per the officer on duty observing the patient as inpatient in ICU. Further discussion by the officer has been made and it was informed that the patient may go through some legal documentation or processing for dropping of the charges? However casework specialist is on board has been informed about the situation and to help the patient as inpatient for his current critical condition and also to proceed according to the policy/protocol required for him postdischarge with optimization of his current clinical condition. he is for possible nursing home placement since he is homeless post discharge PDMP PDMP Reviewed: Not Reviewed Attestations Medical Necessity Statement*: Patient will stay more than 2 midnights for the management of septic shock resistant to fluid resuscitation, ruptured abdominal viscus s/p ex lap and requiring hemodialysis/CRRT for severe class III WENCESLAO or WENCESLAO on the top of CKD? Time Spent in Patient Care: Greater than 35 minutes (>than 50% of time spent in counselling and/or direct pt care on unit). Critical Care Time: The high probability of a clinically significant, sudden or life threatening deterioration, as referenced in this documentation, required my full and direct attention, intervention and personal management. The critical care time shown is in addition to time spent performing any reported separately billable procedures and includes the following: [x] Data and vital sign review and interpretation [x] Patient assessment, examination and intervention [x] Medication orders and management [x] Patient/Family updates as able [x] Care Coordination and Documentation. Critical Care Time (min): 45 Other Attestations: The high probability of a clinically significant, sudden or life threatening deterioration, as referenced in this documentation, required my full and direct attention, intervention and personal management. The critical care time shown is in addition to time spent performing any reported separately billable procedures and includes the following: [x] Data and vital sign review and interpretation [x] Patient assessment, examination and intervention [x] Medication orders and management [x] Patient/Family updates as able [x] Care Coordination and Documentation. Procedures Arterial Line Size (Gauge): 20 Coding Level of Care Code Critical Care >/= 30 minutes Diagnoses Acute anemia D64.9 Septic shock, due to unspecified organism A41.9; R65.21 Perforated viscus R19.8 Acute kidney injury N17.9 Atrial fibrillation I48.91 Hypoalbuminemia E88.09 Hypokalemia E87.6 Electrolyte imbalance E87.8 Encounter for screening involving social determinants of health (SDoH) Z13.9
[2025-03-11] MEDS: calcium gluconate 0.9% NaCL 1 GM/50 ML PREMIX IV ×2 (10:47→11:17)
--- NOTE | 2025-03-11 11:35 | PC.NURSE ---
Notified Dr. Rivas of bradycardia HR in 40's. Patient not symptomatic.
[2025-03-11 12:59] LABS: Ferritin 841 ng/mL (30-400); Iron 39 ug/dL (59-158); Total Iron Binding Capacity 97 mcg/dl; Unsaturated Iron Binding 58 ug/dL (112-347)
--- NOTE | 2025-03-11 13:13 | PC.NURSE ---
Everardo paused for dialysis.
[2025-03-11 13:33] LABS: Vitamin B12 > 2000 pg/mL (232-1245)
[2025-03-11 14:50] LABS: Albumin Level 3.1 g/dL (3.5-5.2); Anion Gap 16.4 (5-19); Blood Urea Nitrogen 64 mg/dL (6-20); Calcium 8.1 mg/dL (8.5-10.5); Carbon Dioxide 26 mmol/L (22-29); Chloride 102 mmol/L (98-107); Glucose 120 mg/dL (65-115); Magnesium 2.8 mg/dL (1.7-2.3); Potassium 3.4 mmol/L (3.5-5.1); Sodium 141 mmol/L (136-145)
[2025-03-11] MEDS: heparin, porcine 1,000 unit/mL INJ 10 mL 10000 UNIT INTRACATH (16:08)
[2025-03-11 18:26] LABS: Hematocrit 25.9 % (37-53); Hemoglobin 9.30 g/dL (11.27-16.99); Mean Corpuscular HGB Conc 35.9 g/dL (30-55); Mean Corpuscular Hemoglobin 31.3 pg (27-33); Mean Corpuscular Volume 87.2 fl (82-101); Nucleated Red Blood Cells % 0 %; Platelet Count 81 10^3/cmm (157-399); Red Blood Count 2.97 10^6/uL (3.85-5.65); White Blood Count 18.14 10^3/uL (3.29-11.43)
[2025-03-11 20:29] LABS: Albumin Level 3.2 g/dL (3.5-5.2); Anion Gap 15.7 (5-19); Blood Urea Nitrogen 55 mg/dL (6-20); Calcium 7.8 mg/dL (8.5-10.5); Carbon Dioxide 27 mmol/L (22-29); Chloride 100 mmol/L (98-107); Glucose 137 mg/dL (65-115); Magnesium 2.6 mg/dL (1.7-2.3); Potassium 3.7 mmol/L (3.5-5.1); Sodium 139 mmol/L (136-145)
--- NOTE | 2025-03-11 23:51 | PC.NURSE ---
Patient is passing gas and had a bowel movement.
[2025-03-12] VITALS (56 sets, daily range): BP systolic 118–154; BP diastolic 65–89; PULSE 42–87; RESP 13–30; TEMP 36.5–37.4; O2SAT 85–96
[2025-03-12 02:19] LABS: Albumin Level 3.2 g/dL (3.5-5.2); Anion Gap 15.7 (5-19); Blood Urea Nitrogen 62 mg/dL (6-20); Calcium 8.1 mg/dL (8.5-10.5); Carbon Dioxide 28 mmol/L (22-29); Chloride 101 mmol/L (98-107); Glucose 146 mg/dL (65-115); Magnesium 2.7 mg/dL (1.7-2.3); Potassium 3.7 mmol/L (3.5-5.1); Sodium 141 mmol/L (136-145)
[2025-03-12] MEDS: albumin 25 G/100 ML BAG 60 G IV ×3 (02:58→18:44)
[2025-03-12] MEDS: hydrocortisone 100 mg/2 mL SDV 50 MG IVP ×4 (02:59→21:17)
--- NOTE | 2025-03-12 03:23 | PC.NURSE ---
Went into patients room to administer medications at 0255 and patient had pulled NG from R nare out. This nurse asked patient what happened and he stated Im not putting that thing back in. Dr. Elkins notified and verified patient had bowel sounds and confirmed patient had bowel movement. Gave orders to wait and have surgeon consulted as to whether NG would need replaced.
--- NOTE | 2025-03-12 04:10 | PC.NURSE ---
Addendum entered by ELIER Worley 03/12/25 05:00: Found patient again with NC laying on his chest. Educated patient on importance of keeping oxygen on as his O2 saturation was 85%. Patient placed NC back in patients nose. Original Note: Entered patients room at 0300 and found him to have removed NC from nose. Informed patient he currently is requiring oxygen to maintain appropriate oxygen. He was agreeable to placing it back in his nose, though reluctant.
[2025-03-12] MEDS: pantoprazole 40 mg SDV IVP (04:48)
[2025-03-12] MEDS: piperacillin-tazobactam 3.375 GM in sodium chloride 0.9% (plus) 50 ML IV ×3 (04:48→21:17)
[2025-03-12 05:59] LABS: Hematocrit 25.4 % (37-53); Hemoglobin 8.90 g/dL (11.27-16.99); Mean Corpuscular HGB Conc 35.0 g/dL (30-55); Mean Corpuscular Hemoglobin 31.2 pg (27-33); Mean Corpuscular Volume 89.1 fl (82-101); Nucleated Red Blood Cells % 0.1 %; Platelet Count 73 10^3/cmm (157-399); Red Blood Count 2.85 10^6/uL (3.85-5.65); White Blood Count 15.20 10^3/uL (3.29-11.43)
[2025-03-12 06:26] LABS: Alanine Aminotransferase 26 U/L (0-41); Albumin Level 3.3 g/dL (3.5-5.2); Alkaline Phosphatase 85 U/L (40-130); Anion Gap 15.7 (5-19); Aspartate Amino Transferase 60 U/L (0-40); Blood Urea Nitrogen 61 mg/dL (6-20); Calcium 8.1 mg/dL (8.5-10.5); Carbon Dioxide 28 mmol/L (22-29); Chloride 100 mmol/L (98-107); Globulin 2.2 g/dL (1.3-4.6); Glucose 143 mg/dL (65-115); Magnesium 2.8 mg/dL (1.7-2.3); Osmolality Calculated 310 mOsm/kg (285-295); Potassium 3.7 mmol/L (3.5-5.1); Sodium 140 mmol/L (136-145); Total Protein 5.5 g/dL (6.6-8.7)
--- NOTE | 2025-03-12 08:01 | PM.PN ---
Subjective Subjective: UOP Has improved, on 2 L or two nasal cannula Medications: Reviewed: Yes Vitals/I&O/Wt Last Vital Signs Temp 98.9 F 03/12/25 05:51 Pulse 58 L 03/12/25 06:00 Resp 14 03/12/25 06:00 BP 130/79 03/12/25 06:00 Pulse Ox 90 03/12/25 06:00 O2 Del Method Nasal Cannula 03/11/25 18:00 O2 Flow Rate 2 03/11/25 18:00 03/11/25 03/12/25 03/12/25 22:59 06:59 14:59 Intake Total 692.5 / 1770.0 450 / 2220.0 Output Total 2938 / 3708 875 / 4583 Balance -2245.5 / -1938.0 -425 / -2363.0 Weight last 48 hrs Weight 89.4 kg Weight 89.5 kg Weight 91 kg Weight 91.5 kg Physical Exam Narrative: AWAKE , ALERT , NO DISTRESS ON ROOM AIR S1S2 RRR Lungs clear Abd-post op tenderness ext , no edema skin , no rash Urinary Catheter Management: Bagley: Cath Placed During This Visit: yes Reason for Continuing Indwelling Catheter: Accurate Measurement of Urinary Output in Critically Ill Patients Urinary Catheter Date of Insertion: 03/08/25 Urinary Catheter Time of Insertion: 23:18 Data 03/12/25 04:55 03/12/25 04:55 Micro: Microbiology 03/08/25 23:34 Gram Stain - Final Abdomen Anaerobic Culture - Preliminary Wound Culture - Preliminary Gram Negative Rods 03/09/25 02:52 Urine Culture - Final Urine,Clean Catch A&P Assessment and plan 1. Acute kidney injury: Plan: 1. Acute Kidney injury:: No baseline labs,suspect underlying CKD , patient now has WENCESLAO a due to ATN from severe sepsis. - s/p CRRT - stopped due to machine alarms , but tolerated HD well on wed and wednesday - UOP picked up , hold off HD and monitor today 2. Sepsis secondary to perforated viscus, status post ex lap and washout, awaiting return of bowel function 3. Metabolic acidosis: Due to lactic acidosis, s/p bicarbonate drip , improved 4. Hypokalemia - repleted 5. Anemia ,hb 8.9 Patient evaluated using audiovisual cart. Time spent 30 minutes. PDMP PDMP Reviewed: Not [facility]ed [facility]cess[facility] Statement*: per [facility] Procedures Arterial Line Size (Gauge): 20 Coding Level of Care Code Acute Code for Chg Fwd Diagnoses Acute kidney injury N17.9
[2025-03-12 09:20] LABS: Albumin Level 3.1 g/dL (3.5-5.2); Anion Gap 15.6 (5-19); Blood Urea Nitrogen 66 mg/dL (6-20); Calcium 7.9 mg/dL (8.5-10.5); Carbon Dioxide 25 mmol/L (22-29); Chloride 101 mmol/L (98-107); Glucose 150 mg/dL (65-115); Magnesium 2.9 mg/dL (1.7-2.3); Potassium 3.6 mmol/L (3.5-5.1); Sodium 138 mmol/L (136-145)
--- NOTE | 2025-03-12 10:13 | P.PN_ITS ---
Subjective 2 Subjective: NGT pulled accidentally Passing gas. Had a small BM Abdomen benign Left drain murky, right drain SS Off pressors WBC down Vitals/I&O/Wt Last Vital Signs Temp 98.9 F 03/12/25 05:51 Pulse 46 L 03/12/25 10:05 Resp 14 03/12/25 06:00 BP 130/79 03/12/25 06:00 Pulse Ox 92 03/12/25 10:05 O2 Del Method Nasal Cannula 03/12/25 10:05 O2 Flow Rate 2 03/12/25 10:05 03/11/25 03/12/25 03/12/25 22:59 06:59 14:59 Intake Total 692.5 / 1770.0 450 / 2220.0 50 / 50 Output Total 2938 / 3708 875 / 4583 Balance -2245.5 / -1938.0 -425 / -2363.0 50 / 50 Weight last 48 hrs Weight 197 lb 1.492 oz Weight 197 lb 5.019 oz Weight 200 lb 9.93 oz Weight 201 lb 11.567 oz Physical Exam 2 Narrative: rrr unlabored breathing ra abdomen soft, NTTP, non distended. Right drain serous. Left drain murky. Urinary Catheter Management: Bagley: Cath Placed During This Visit: yes Reason for Continuing Indwelling Catheter: Accurate Measurement of Urinary Output in Critically Ill Patients Urinary Catheter Date of Insertion: 03/08/25 Urinary Catheter Time of Insertion: 23:18 Data 03/12/25 04:55 03/12/25 14:26 Micro: Microbiology 03/08/25 23:34 Gram Stain - Final Abdomen Anaerobic Culture - Preliminary Wound Culture - Preliminary Escherichia coli 03/09/25 02:52 Urine Culture - Final Urine,Clean Catch A&P Assessment and plan 1. Perforated appendicitis: Plan: 54yo male who presented with perforated appendictis s/p open appendectomy. Now having bowel function. Ok to advance to clears. Rest of care per hospitalist. Keep on a 14 day course of antibiotics. Keep drains until follow up in 2 weeks. PDMP PDMP Reviewed: Not Reviewed Attestations 2 Medical Necessity Statement*: NA Procedures Arterial Line Size (Gauge): 20 Coding Level of Care Code 25642 Diagnoses Perforated appendicitis K35.32
[2025-03-12 14:57] LABS: Albumin Level 3.4 g/dL (3.5-5.2); Anion Gap 15.3 (5-19); Blood Urea Nitrogen 68 mg/dL (6-20); Calcium 8.0 mg/dL (8.5-10.5); Carbon Dioxide 27 mmol/L (22-29); Chloride 100 mmol/L (98-107); Glucose 201 mg/dL (65-115); Magnesium 2.8 mg/dL (1.7-2.3); Potassium 3.3 mmol/L (3.5-5.1); Sodium 139 mmol/L (136-145)
[2025-03-12 17:55] LABS: HEP C RNA Viral Load Quant 2190000 IU/mL (NOT DETECTED); HEP C RNA Viral Load Quant 6.34 Log IU/mL (NOT DETECTED)
--- NOTE | 2025-03-12 20:00 | P.PN_ITS ---
Subjective 2 Subjective: patient was seen in the [facility], and NGT pulled accidentally? doing well and passing gas, not in distress and looks comfortable both abd drains intact and left one having some debris serosanguis output Passing gas. Had a small BM off vasopressors nephro onboard for further management for severe WENCESLAO Medications: Reviewed: Yes Vitals/I&O/Wt Last Vital Signs Temp 98.3 F 03/13/25 01:01 Pulse 45 L 03/13/25 00:00 Resp 18 03/13/25 00:00 BP 148/79 03/13/25 00:00 Pulse Ox 92 03/13/25 00:00 O2 Del Method Nasal Cannula 03/13/25 00:00 O2 Flow Rate 2 03/13/25 00:00 03/12/25 03/12/25 03/13/25 14:59 22:59 06:59 Intake Total 1150 / 1150 750 / 1900 50 / 1950 Output Total 40 / 40 1065 / 1105 Balance 1110 / 1110 -315 / 795 50 / 845 Weight last 48 hrs Weight 89.4 kg Weight 89.5 kg Weight 91 kg Physical Exam 2 Narrative: General: Alert and oriented, lying comfortably without any distress, on room air, able to complete his sentences, off vasopressors HEENT: Normocephalic, atraumatic, grossly unremarkable exam Cardio: normal rate rhythm, normal S1-S2 without any murmurs, rubs, or gallops and JVD normal Respiratory: normal vascular breathing on auscultation without any wheezes, stridor, rhonchi GI: Abdomen soft, nondistended, normoactive bowel sounds present all 4 quadrants, with 2 drains at both lower quadrants having serosangious discharge and left one with some debris as well, dressing in the middle for exp lap and is clean Neuro: intact cranial nerves motor and sensory and cerebellar/coordination function without any focal neurological deficit Behavior: Appropriate and cooperative Extremities: Adequate palpable pulses, no edema or cyanosis observed, folleys cath in place. Urinary Catheter Management: Bagley: Cath Placed During This Visit: yes Reason for Continuing Indwelling Catheter: Accurate Measurement of Urinary Output in Critically Ill Patients Urinary Catheter Date of Insertion: 03/08/25 Urinary Catheter Time of Insertion: 23:18 Data 03/12/25 04:55 12/01/25 14:26 Micro: Microbiology 03/08/25 23:34 Gram Stain - Final Abdomen Anaerobic Culture - Preliminary Wound Culture - Preliminary Escherichia coli A&P Assessment and plan 1. Acute anemia: patient had significant drop in the hb from the time of admission and CT abd pelvis with contrast did not show any acute signs of bleeding cont to monitor, hb more or less still trending down could be iatrogenic and post surgery, multifactorial along with severe WENCESLAO con cbc monitoring 2. Septic shock, due to unspecified organism: - currently resolving, Secondary to intra-abdominal source from ruptured appendix and abdominal abscesses, off vasopressors - patient initial fluid responsive, later resistant and had NE running for ~24hours and weaned off - 2 sets of blood cultures and growing gram negative rods sensitive to zosyn and to continue, d/c vancomycin - urine cultures prelim negative - Lactate series improving and adequate capillary refill observed - Maintain 2 IV bore cannulas - Patient having MAP over 65 - if BP stable tomorrow then d/c steroids - Monitor hemodynamics - Intake and output monitoring 3. Perforated viscus: - S/p exploratory laparotomy for ruptured appendix and abdominal wash for intra- abdominal abscesses - Continue Zosyn renally adjusted dose - Adequate analgesia - Follow surgery plan and recommendation - clear fluid diet 4. Acute kidney injury: - Patient baseline kidney status is unknown and since the patient BUN and lactate is high, nephrology consulted and is on board. -ELECTROMECHANICAL ASSEMBLY TECHNICIAN was started and was not continued due to technical issue of the machine, pt later had HD session and tolerated well. today recieved contrast and will get HD session in the afternoon, [employer] made aware and is onboard, appreciate the input - avoid nephrotoxic drugs and medications to be given renally adjusted - Monitor intake and output through Bagley's catheter 5. Atrial fibrillation: Patient had atrial fibrillation episode, initially the EKG was more or less sinus tachycardia and later evolved into atrial fibrillation and started on amiodarone. Current heart rate is controlled and off amiodarone Echo showed ejection fraction of 59% normal left atrium. Likely atrial fibrillation triggered by septic shock. cont to monitor by cardiac rn 6. Hypoalbuminemia: recieved albumin replacement cont to follow and monitor 7. Hypokalemia: Continue potassium replacement and to monitor in the morning 8. Electrolyte imbalance: Secondary to severe WENCESLAO, continue to monitor electrolytes and correction accordingly 9. Encounter for screening involving social determinants of health (SDoH): Patient was brought in by the police custody due to charges of theft/stolen truck as per the officer on duty observing the patient as inpatient in ICU. Further discussion by the officer has been made and it was informed that the patient may go through some legal documentation or processing for dropping of the charges? However case making machine operator is on board has been informed about the situation and to help the patient as inpatient for his current critical condition and also to proceed according to the policy/protocol required for him postdischarge with optimization of his current clinical condition. he is for possible [facility] placement since he is homeless post discharge PDMP PDMP Reviewed: Not Reviewed Attestations 2 Medical Necessity Statement*: Patient will stay more than 2 midnights for the management of septic shock resistant to fluid resuscitation, ruptured abdominal viscus s/p ex lap and requiring hemodialysis/CRRT for severe class III WENCESLAO or WENCESLAO on the top of CKD? Time Spent in Patient Care: Greater than 35 minutes (>than 50% of time spent in counselling and/or direct pt care on unit) . Critical Care Time: The high probability of a clinically significant, sudden or life threatening deterioration, as referenced in this documentation, required my full and direct attention, intervention and personal management. The critical care time shown is in addition to time spent performing any reported separately billable procedures and includes the following: [x] Data and vital sign review and interpretation [x ] Patient assessment, examination and intervention [x] Medication orders and management [x] Patient/Family updates as able [x] Care Coordination and Documentation. Critical Care Time (min): 40 Other Attestations: Patient condition has been discussed at length with the patient/family, I have independently reviewed the chart labs imaging/diagnostics/EKG. the goals of care and code status with the patient/family/NOK/legal cash posting representative, and documented accordingly. The management has been done according to the current clinical condition with respect to patient goals of care and based on recommendations/guidelines. The patient/family has been informed about the current condition and further plan of care. Agreed with the plan of care and understood without any language barrier. Every effort was made to ensure accuracy of watch electrician. Any obvious errors or omissions should be clarified with the author of the document. Procedures Arterial Line Size (Gauge): 20 Coding Level of Care Code Critical Care >/= 30 minutes Diagnoses Acute anemia D64.9 Septic shock, due to unspecified organism A41.9; R65.21 Perforated viscus R19.8 Acute kidney injury N17.9 Atrial fibrillation I48.91 Hypoalbuminemia E88.09 Hypokalemia E87.6 Electrolyte imbalance E87.8 Encounter for screening involving social determinants of health (SDoH) Z13.9
--- NOTE | 2025-03-12 20:01 | PC.NURSE ---
[employer] down during shift change. Off going nurseNikole RN placed paper note in patients chart.
[2025-03-13] VITALS (97 sets, daily range): BP systolic 117–168; BP diastolic 64–106; PULSE 40–70; RESP 15–28; TEMP 36.4–37.4; O2SAT 76–98
[2025-03-13] MEDS: albumin 25 G/100 ML BAG 60 G IV ×3 (01:22→17:43)
[2025-03-13] MEDS: hydrocortisone 100 mg/2 mL SDV 50 MG IVP ×3 (01:22→15:05)
[2025-03-13] MEDS: lidocaine 1% 5 ML in potassium chloride premix 100 ML 52.5 ML IV (01:58)
[2025-03-13] MEDS: pantoprazole 40 mg SDV IVP (04:03)
[2025-03-13] MEDS: piperacillin-tazobactam 3.375 GM in sodium chloride 0.9% (plus) 50 ML IV ×3 (04:04→21:26)
[2025-03-13 05:46] LABS: Hematocrit 24.8 % (37-53); Hemoglobin 8.80 g/dL (11.27-16.99); Mean Corpuscular HGB Conc 35.5 g/dL (30-55); Mean Corpuscular Hemoglobin 32.0 pg (27-33); Mean Corpuscular Volume 90.2 fl (82-101); Nucleated Red Blood Cells % 0.1 %; Platelet Count 76 10^3/cmm (157-399); Red Blood Count 2.75 10^6/uL (3.85-5.65); White Blood Count 16.45 10^3/uL (3.29-11.43)
[2025-03-13 05:59] LABS: Alanine Aminotransferase 21 U/L (0-41); Albumin Level 3.6 g/dL (3.5-5.2); Alkaline Phosphatase 75 U/L (40-130); Anion Gap 16.7 (5-19); Aspartate Amino Transferase 40 U/L (0-40); Blood Urea Nitrogen 64 mg/dL (6-20); Calcium 8.1 mg/dL (8.5-10.5); Carbon Dioxide 27 mmol/L (22-29); Chloride 103 mmol/L (98-107); Globulin 1.8 g/dL (1.3-4.6); Glucose 170 mg/dL (65-115); Magnesium 2.8 mg/dL (1.7-2.3); Osmolality Calculated 318 mOsm/kg (285-295); Potassium 3.7 mmol/L (3.5-5.1); Sodium 143 mmol/L (136-145); Total Protein 5.4 g/dL (6.6-8.7)
[2025-03-13] MEDS: FUROsemide 10 mg/mL SDV 4mL 40 MG IVP (09:37)
--- NOTE | 2025-03-13 09:44 | P.PN_ITS ---
Subjective 2 Subjective: Passing gas, having BMs tolerating clears Abdomen benign Right drain serous, left drain murky Midline intact Vitals/I&O/Wt Last Vital Signs Temp 98.8 F 03/13/25 08:30 Pulse 64 03/13/25 08:30 Resp 27 H 03/13/25 08:30 BP 147/79 03/13/25 08:30 Pulse Ox 90 03/13/25 08:30 O2 Del Method Nasal Cannula 03/13/25 08:30 O2 Flow Rate 2 03/13/25 08:30 03/12/25 03/13/25 03/13/25 22:59 06:59 14:59 Intake Total 750 / 1900 255 / 2155 Output Total 1065 / 1105 900 / 2005 Balance -315 / 795 -645 / 150 Weight last 48 hrs Weight 195 lb 15.855 oz Weight 197 lb 1.492 oz Weight 197 lb 5.019 oz Physical Exam 2 Narrative: rrr unlabored breathing ra abdomen soft, nt, nd. Right drain serous, left drain murky. Midline intact. Urinary Catheter Management: Bagley: Cath Placed During This Visit: yes Reason for Continuing Indwelling Catheter: Accurate Measurement of Urinary Output in Critically Ill Patients Urinary Catheter Date of Insertion: 03/08/25 Urinary Catheter Time of Insertion: 23:18 Data 03/13/25 05:04 03/13/25 05:04 Micro: Microbiology 03/08/25 23:34 Gram Stain - Final Abdomen Anaerobic Culture - Preliminary Wound Culture - Preliminary Escherichia coli A&P Assessment and plan 1. Perforated appendicitis: Plan: 54 yob male s/p ex lap and appendectomy. Having bowel function. Ok to advance to reg diet. From surgical perspective ok for med surg. Rest of care per hospitalist. PDMP PDMP Reviewed: Not Reviewed Attestations 2 Medical Necessity Statement*: NA Procedures Arterial Line Size (Gauge): 20 Coding Level of Care Code 99671 Diagnoses Perforated appendicitis K35.32
--- NOTE | 2025-03-13 16:47 | PM.PN ---
Subjective Subjective: patient was seen in the morning, on clear fluid status and tolerating Passing gas and having bowel motion Looks comfortable. both abd drains intact and left one having some debris serosanguis output. off vasopressors nephro onboard for further management for severe WENCESLAO Medications: Reviewed: Yes Vitals/I&O/Wt Last Vital Signs Temp 98.8 F 03/13/25 08:30 Pulse 44 L 03/13/25 16:00 Resp 21 H 03/13/25 16:00 BP 136/76 03/13/25 16:00 Pulse Ox 96 03/13/25 16:00 O2 Del Method Nasal Cannula 03/13/25 16:00 O2 Flow Rate 2 03/13/25 16:00 03/13/25 03/13/25 03/13/25 06:59 14:59 22:59 Intake Total 255 / 2155 650 / 650 Output Total 900 / 2005 885 / 885 70 / 955 Balance -645 / 150 -235 / -235 -70 / -305 Weight last 48 hrs Weight 88.9 kg Weight 89.4 kg Weight 89.5 kg Physical Exam Narrative: General: Alert and oriented, lying comfortably without any distress, on room air, able to complete his sentences, making urine output HEENT: Normocephalic, atraumatic, grossly unremarkable exam Cardio: normal rate rhythm, normal S1-S2 without any murmurs, rubs, or gallops and JVD normal Respiratory: normal vascular breathing on auscultation without any wheezes, stridor, rhonchi GI: Abdomen soft, nondistended, normoactive bowel sounds present all 4 quadrants, with 2 drains at both lower quadrants having right drain with mild serosangious discharge and left one with some debris as well more than the right, dressing in the middle for exp lap and is clean Neuro: intact cranial nerves motor and sensory and cerebellar/coordination function without any focal neurological deficit Behavior: Appropriate and cooperative Extremities: Adequate palpable pulses, no edema or cyanosis observed, folleys cath in place. Urinary Catheter Management: Bagley: Cath Placed During This Visit: yes Reason for Continuing Indwelling Catheter: Accurate Measurement of Urinary Output in Critically Ill Patients Urinary Catheter Date of Insertion: 03/08/25 Urinary Catheter Time of Insertion: 23:18 Data 03/13/25 05:04 03/13/25 05:04 Micro: Microbiology 03/08/25 23:34 Gram Stain - Final Abdomen Anaerobic Culture - Preliminary Peptococcus anaerobius Bacteroides fragilis Wound Culture - Preliminary Escherichia coli A&P Assessment and plan 1. Acute anemia: patient had significant drop in the hb from the time of admission and CT abd pelvis with contrast did not show any acute signs of bleeding cont to monitor, hb more or less still trending down could be iatrogenic and post surgery, multifactorial along with severe WENCESLAO cont cbc monitoring Hold heparin or any heparin related products SCDs for VTE 2. Thrombocytopenia: Patient having thrombocytopenia status postsurgery and also found to have hepatitis C infection with positive RNA PCR detected Continue monitor No obvious source of bleeding Hold heparin or any blood thinners SCD for VTE 3. Hepatitis C virus infection without hepatic coma, unspecified chronicity: ID consulted to further recommendation, Continue monitor liver functions and bilirubin Patient did not show any signs of hepatic and cephalopathy or acute hepatitis Continue to monitor 4. Septic shock, due to unspecified organism: - currently resolving, Secondary to intra-abdominal source from ruptured appendix and abdominal abscesses, off vasopressors - patient initial fluid responsive, later resistant and had NE running for ~24hours and weaned off - 2 sets of blood cultures and growing gram negative rods sensitive to zosyn and to continue, d/c vancomycin - urine cultures prelim negative - Lactate series improving and adequate capillary refill observed - Maintain 2 IV bore cannulas - Patient having MAP over 65 - Blood pressure stable and to discontinue hydrocortisone - Monitor hemodynamics - Intake and output monitoring 5. Perforated viscus: - S/p exploratory laparotomy for ruptured appendix and abdominal wash for intra-abdominal abscesses - Continue Zosyn renally adjusted dose - Adequate analgesia - Follow surgery plan and recommendation - clear fluid diet 6. Acute kidney injury: - Patient baseline kidney status is unknown and since the patient BUN and lactate is high, nephrology consulted and is on board. -SINGLE STAYER OPERATOR was started and was not continued due to technical issue of the machine, pt later had HD session and tolerated well. Nephrology on board and to follow the recommendation, appreciate the input. - avoid nephrotoxic drugs and medications to be given renally adjusted - Monitor intake and output through Bagley's catheter 7. Atrial fibrillation: Patient had atrial fibrillation episode, initially the EKG was more or less sinus tachycardia and later evolved into atrial fibrillation and started on amiodarone. Current heart rate is controlled and off amiodarone Echo showed ejection fraction of 59% normal left atrium. Likely atrial fibrillation triggered by septic shock. cont to monitor by electronic device monitor 8. Hypoalbuminemia: recieved albumin replacement cont to follow and monitor 9. Hypokalemia: Continue potassium replacement and to monitor in the morning 10. Electrolyte imbalance: Secondary to severe WENCESLAO, continue to monitor electrolytes and correction accordingly Hypocalcemia, 2 g calcium gluconate and follow later on 11. Encounter for screening involving social determinants of health (SDoH): Patient was brought in by the police custody due to charges of theft/stolen truck as per the officer on duty observing the patient as inpatient in ICU. Further discussion by the officer has been made and it was informed that the patient may go through some legal documentation or processing for dropping of the charges? However supportive employment case manager is on board has been informed about the situation and to help the patient as inpatient for his current critical condition and also to proceed according to the policy/protocol required for him postdischarge with optimization of his current clinical condition. he is for possible skilled nursing placement since he is homeless post discharge PDMP PDMP Reviewed: Not Reviewed Attestations Medical Necessity Statement*: Patient will stay more than 2 midnights for the management of septic shock resistant to fluid resuscitation currently resolved, ruptured abdominal viscus s/p ex lap and having 2 drains, requiring hemodialysis/CRRT for severe class III WENCESLAO or WENCESLAO on the top of CKD? Continue to improve still needs inpatient care Time Spent in Patient Care: 16 - 35 minutes (>than 50% of time spent in counselling and/or direct pt care on unit). Critical Care Time: The high probability of a clinically significant, sudden or life threatening deterioration, as referenced in this documentation, required my full and direct attention, intervention and personal management. The critical care time shown is in addition to time spent performing any reported separately billable procedures and includes the following: [x] Data and vital sign review and interpretation [x] Patient assessment, examination and intervention [x] Medication orders and management [x] Patient/Family updates as able [x] Care Coordination and Documentation. Critical Care Time (min): 35 Procedures Arterial Line Size (Gauge): 20 Coding Level of Care Code Critical Care >/= 30 minutes Diagnoses Acute anemia D64.9 Thrombocytopenia D69.6 Hepatitis C virus infection without hepatic coma, unspecified chronicity B19.20 Viral hepatitis chronicity: unspecified Hepatic coma status: without hepatic coma Septic shock, due to unspecified organism A41.9; R65.21 Perforated viscus R19.8 Acute kidney injury N17.9 Atrial fibrillation I48.91 Hypoalbuminemia E88.09 Hypokalemia E87.6 Electrolyte imbalance E87.8 Encounter for screening involving social determinants of health (SDoH) Z13.9
--- NOTE | 2025-03-13 17:28 | P.PN_ITS ---
Subjective 2 Subjective: no new c/o Medications: Reviewed: Yes Vitals/I&O/Wt Last Vital Signs Temp 98.8 F 03/13/25 08:30 Pulse 44 L 03/13/25 16:00 Resp 21 H 03/13/25 16:00 BP 136/76 03/13/25 16:00 Pulse Ox 96 03/13/25 16:00 O2 Del Method Nasal Cannula 03/13/25 16:00 O2 Flow Rate 2 03/13/25 16:00 03/13/25 03/13/25 03/13/25 06:59 14:59 22:59 Intake Total 255 / 2155 650 / 650 Output Total / 2004 885 / 885 70 / 955 Balance -645 / 150 -235 / -235 -70 / -305 Weight last 48 hrs Weight 88.9 kg Weight 89.4 kg Weight 89.5 kg Physical Exam 2 Narrative: AWAKE , ALERT , NO DISTRESS ON ROOM AIR S1S2 RRR Lungs clear Abd-post op tenderness ext , no edema skin , no rash Urinary Catheter Management: Bagley: Cath Placed During This Visit: yes Reason for Continuing Indwelling Catheter: Accurate Measurement of Urinary Output in Critically Ill Patients Urinary Catheter Date of Insertion: 03/08/25 Urinary Catheter Time of Insertion: 23:18 Data 03/13/25 05:04 03/13/25 05:04 Micro: Microbiology 03/08/25 23:34 Gram Stain - Final Abdomen Anaerobic Culture - Preliminary Peptococcus anaerobius Bacteroides fragilis Wound Culture - Preliminary Escherichia coli A&P Assessment and plan 1. Acute kidney injury: Plan: 1. Acute Kidney injury:: No baseline labs,suspect underlying CKD , patient now has WENCESLAO a due to ATN from severe sepsis. - s/p CRRT - stopped due to machine alarms , but tolerated HD well on wed and wednesday - UOP picked up , hold off HD and monitor . PRN Lasix 2. Sepsis secondary to perforated viscus, status post ex lap and washout, 3. Metabolic acidosis: Due to lactic acidosis, s/p bicarbonate drip , improved 4. Hypokalemia - repleted 5. Anemia ,hb 8.8 Patient evaluated using audiovisual cart. Time spent 30 minutes. PDMP PDMP Reviewed: Not Reviewed Attestations 2 Medical Necessity Statement*: per medicne Procedures Arterial Line Size (Gauge): 20 Coding Level of Care Code Acute Code for Chg Fwd Diagnoses Acute kidney injury N17.9
[2025-03-13] MEDS: calcium gluconate 0.9% NaCL 1 GM/50 ML PREMIX IV ×2 (17:43→18:15)
[2025-03-14] VITALS (43 sets, daily range): BP systolic 114–160; BP diastolic 61–93; PULSE 45–67; RESP 14–26; TEMP 36.6–37.5; O2SAT 86–95
[2025-03-14] MEDS: albumin 25 G/100 ML BAG 60 G IV ×3 (01:06→17:19)
[2025-03-14] MEDS: piperacillin-tazobactam 3.375 GM in sodium chloride 0.9% (plus) 50 ML IV ×3 (04:28→21:02)
[2025-03-14] MEDS: pantoprazole 40 mg SDV IVP (04:29)
[2025-03-14 06:04] LABS: Hematocrit 26.9 % (37-53); Hemoglobin 9.30 g/dL (11.27-16.99); Mean Corpuscular HGB Conc 34.6 g/dL (30-55); Mean Corpuscular Hemoglobin 31.8 pg (27-33); Mean Corpuscular Volume 92.1 fl (82-101); Nucleated Red Blood Cells % 0 %; Platelet Count 98 10^3/cmm (157-399); Red Blood Count 2.92 10^6/uL (3.85-5.65); White Blood Count 18.38 10^3/uL (3.29-11.43)
[2025-03-14 06:25] LABS: Alanine Aminotransferase 18 U/L (0-41); Albumin Level 3.6 g/dL (3.5-5.2); Alkaline Phosphatase 69 U/L (40-130); Blood Urea Nitrogen 61 mg/dL (6-20); Calcium 8.3 mg/dL (8.5-10.5); Carbon Dioxide 28 mmol/L (22-29); Chloride 102 mmol/L (98-107); Globulin 1.8 g/dL (1.3-4.6); Glucose 160 mg/dL (65-115); Magnesium 2.3 mg/dL (1.7-2.3); Osmolality Calculated 315 mOsm/kg (285-295); Sodium 142 mmol/L (136-145); Total Protein 5.4 g/dL (6.6-8.7)
[2025-03-14 06:26] LABS: Anion Gap 15.0 (5-19); Aspartate Amino Transferase 32 U/L (0-40); Potassium 3.0 mmol/L (3.5-5.1)
--- NOTE | 2025-03-14 09:56 | PC.NURSE ---
DR. Nguyen approved changing scheduled senna to prn for loose stools and pt/ot eval
--- NOTE | 2025-03-14 11:19 | P.PN_ITS ---
Subjective 2 Subjective: no new c/o Medications: Reviewed: Yes Vitals/I&O/Wt Last Vital Signs Temp 97.8 F 03/14/25 04:00 Pulse 47 L 03/14/25 10:30 Resp 24 H 03/14/25 10:30 BP 142/66 03/14/25 10:30 Pulse Ox 90 03/14/25 10:30 O2 Del Method Nasal Cannula 03/14/25 08:29 O2 Flow Rate 2 03/14/25 08:29 03/13/25 03/14/25 03/14/25 22:59 06:59 14:59 Intake Total 500 / 1250 450 / 1700 300 / 300 Output Total 1370 / 2255 1190 / 3445 Balance -870 / -1005 -740 / -1745 300 / 300 Weight last 48 hrs Weight 88.7 kg Weight 88.9 kg Physical Exam 2 Narrative: AWAKE , ALERT , NO DISTRESS ON ROOM AIR S1S2 RRR Lungs clear Abd-post op tenderness ext , no edema skin , no rash Urinary Catheter Management: Bagley: Cath Placed During This Visit: yes Reason for Continuing Indwelling Catheter: Accurate Measurement of Urinary Output in Critically Ill Patients Urinary Catheter Date of Insertion: 03/08/25 Urinary Catheter Time of Insertion: 23:18 Data 03/14/25 04:45 03/14/25 04:45 Micro: Microbiology 03/08/25 20:01 Blood Culture - Final Blood NO GROWTH AFTER 5 DAYS 03/08/25 19:59 Blood Culture - Final Blood NO GROWTH AFTER 5 DAYS 03/08/25 23:34 Gram Stain - Final Abdomen Anaerobic Culture - Preliminary Peptococcus anaerobius Bacteroides fragilis Wound Culture - Preliminary Escherichia coli A&P Assessment and plan 1. Acute kidney injury: Plan: 1. Acute Kidney injury:: No baseline labs,suspect underlying CKD , patient now has WENCESLAO a due to ATN from severe sepsis. - s/p CRRT and HD x 2 sessions - UOP picked up , Cr stable - Arrrange Nephrology follow @ DC 2. Sepsis secondary to perforated viscus, status post ex lap and washout, 3. Metabolic acidosis: Due to lactic acidosis, s/p bicarbonate drip , improved 4. Hypokalemia - repleted 5. Anemia ,hb 9.3 Patient evaluated using audiovisual cart. Time spent 30 minutes. PDMP PDMP Reviewed: Not Reviewed Attestations 2 Medical Necessity Statement*: per [facility] Procedures Arterial Line Size (Gauge): 20 Coding Level of Care Code Acute Code for Chg Fwd Diagnoses Acute kidney injury N17.9
--- NOTE | 2025-03-14 14:17 | PM.PN ---
Subjective Subjective: seen with staff noted to have some low HR both drains having serous sanguanous drainage Vitals/I&O/Wt Last Vital Signs Temp 97.8 F 03/14/25 04:00 Pulse 47 L 03/14/25 10:30 Resp 24 H 03/14/25 10:30 BP 142/66 03/14/25 10:30 Pulse Ox 90 03/14/25 10:30 O2 Del Method Nasal Cannula 03/14/25 08:29 O2 Flow Rate 2 03/14/25 08:29 03/13/25 03/14/25 03/14/25 22:59 06:59 14:59 Intake Total 500 / 1250 450 / 1700 350 / 350 Output Total 1370 / 2255 1190 / 3445 Balance -870 / -1005 -740 / -1745 350 / 350 Weight last 48 hrs Weight 88.7 kg Weight 88.9 kg Physical Exam Narrative: General: Alert and oriented, lying comfortably without any distress, on room air, able to complete his sentences, making urine output HEENT: Normocephalic, atraumatic, grossly unremarkable exam Cardio: normal rate rhythm, normal S1-S2 without any murmurs, rubs, or gallops and JVD normal Respiratory: normal vascular breathing on auscultation without any wheezes, stridor, rhonchi GI: Abdomen soft, nondistended, normoactive bowel sounds present all 4 quadrants, with 2 drains at both lower quadrants having right drain with mild serosangious discharge and left one with some debris as well more than the right, dressing in the middle for exp lap and is clean Neuro: intact cranial nerves motor and sensory and cerebellar/coordination function without any focal neurological deficit Behavior: Appropriate and cooperative Extremities: Adequate palpable pulses, no edema or cyanosis observed, folleys cath in place. Urinary Catheter Management: Bagley: Cath Placed During This Visit: yes Reason for Continuing Indwelling Catheter: Accurate Measurement of Urinary Output in Critically Ill Patients Urinary Catheter Date of Insertion: 03/08/25 Urinary Catheter Time of Insertion: 23:18 Data 03/14/25 04:45 03/14/25 04:45 Micro: Microbiology 03/08/25 20:01 Blood Culture - Final Blood NO GROWTH AFTER 5 DAYS 03/08/25 19:59 Blood Culture - Final Blood NO GROWTH AFTER 5 DAYS 03/08/25 23:34 Gram Stain - Final Abdomen Anaerobic Culture - Preliminary Peptococcus anaerobius Bacteroides fragilis Wound Culture - Preliminary Escherichia coli A&P Assessment and plan 1. Perforated appendicitis: Plan: 1. Acute anemia: patient had significant drop in the hb from the time of admission and CT abd pelvis with contrast did not show any acute signs of bleeding cont to monitor, hb more or less still trending down could be iatrogenic and post surgery, multifactorial along with severe WENCESLAO cont cbc monitoring Hold heparin or any heparin related products SCDs for VTE 2. Thrombocytopenia: Patient having thrombocytopenia status postsurgery and also found to have hepatitis C infection with positive RNA PCR detected Continue monitor No obvious source of bleeding Hold heparin or any blood thinners SCD for VTE 3. Hepatitis C virus infection without hepatic coma, unspecified chronicity: ID consulted to further recommendation, Continue monitor liver functions and bilirubin Patient did not show any signs of hepatic and cephalopathy or acute hepatitis Continue to monitor 4. Septic shock, due to unspecified organism: - currently resolving, Secondary to intra-abdominal source from ruptured appendix and abdominal abscesses, off vasopressors - patient initial fluid responsive, later resistant and had NE running for ~24hours and weaned off - 2 sets of blood cultures and growing gram negative rods sensitive to zosyn and to continue, d/c vancomycin - urine cultures prelim negative - Lactate series improving and adequate capillary refill observed - Maintain 2 IV bore cannulas - Patient having MAP over 65 - Blood pressure stable and to discontinue hydrocortisone - Monitor hemodynamics - Intake and output monitoring 5. Perforated viscus: - S/p exploratory laparotomy for ruptured appendix and abdominal wash for intra-abdominal abscesses - Continue Zosyn renally adjusted dose - Adequate analgesia - Follow surgery plan and recommendation - clear fluid diet 6. Acute kidney injury: - Patient baseline kidney status is unknown and since the patient BUN and lactate is high, nephrology consulted and is on board. -[employer] was started and was not continued due to technical issue of the machine, pt later had HD session and tolerated well. Nephrology on board and to follow the recommendation, appreciate the input. - avoid nephrotoxic drugs and medications to be given renally adjusted - Monitor intake and output through Bagley's catheter 7. Atrial fibrillation: Patient had atrial fibrillation episode, initially the EKG was more or less sinus tachycardia and later evolved into atrial fibrillation and started on amiodarone. Current heart rate is controlled and off amiodarone Echo showed ejection fraction of 59% normal left atrium. Likely atrial fibrillation triggered by septic shock. cont to monitor by satellite project site monitor 8. Hypoalbuminemia: recieved albumin replacement cont to follow and monitor 9. Hypokalemia: Continue potassium replacement and to monitor in the morning 10. Electrolyte imbalance: Secondary to severe WENCESLAO, continue to monitor electrolytes and correction accordingly Hypocalcemia, 2 g calcium gluconate and follow later on 11. Encounter for screening involving social determinants of health (SDoH): Patient was brought in by the police custody due to charges of theft/stolen truck as per the officer on duty observing the patient as inpatient in ICU. Further discussion by the officer has been made and it was informed that the patient may go through some legal documentation or processing for dropping of the charges? However watch case polisher is on board has been informed about the situation and to help the patient as inpatient for his current critical condition and also to proceed according to the policy/protocol required for him postdischarge with optimization of his current clinical condition. he is for possible long-term placement since he is homeless post discharge PDMP PDMP Reviewed: Not Reviewed Attestations Medical Necessity Statement*: abx Procedures Arterial Line Size (Gauge): 20 Coding Level of Care Code 45355 Diagnoses Perforated appendicitis K35.32
--- NOTE | 2025-03-14 14:32 | PC.NURSE ---
Wednesday03/12/2025: Dayshift at shift change computer/internet issues. See paper chart for shift summary for this day.
[2025-03-14] MEDS: morphine 4 mg/mL SDV 1 mL 2 MG IVP (15:38)
--- NOTE | 2025-03-14 18:53 | P.PN_ITS ---
Subjective 2 Subjective: No acute events overnight Tolerating regular diet Left drain murky at times Right drain serous Midline intact Abdomen midline Vitals/I&O/Wt Last Vital Signs Temp 97.8 F 03/14/25 04:00 Pulse 52 L 03/14/25 18:00 Resp 15 03/14/25 18:00 BP 143/66 03/14/25 18:00 Pulse Ox 90 03/14/25 18:00 O2 Del Method Nasal Cannula 03/14/25 08:29 O2 Flow Rate 2 03/14/25 08:29 03/14/25 03/14/25 03/14/25 06:59 14:59 22:59 Intake Total 450 / 1700 700 / 700 1450 / 2150 Output Total 1190 / 3445 220 / 220 Balance -740 / -1745 700 / 700 1230 / 1930 Weight last 48 hrs Weight 195 lb 8.8 oz Weight 195 lb 15.855 oz Physical Exam 2 Narrative: Chest: Unlabored breathing room air. No lymphadenopathy. Heart: Regular rate and rhythm. Abdomen: Soft, nontender, nondistended. No masses or lymphadenopathy. Left drain murky. Right drain serous. Midline clean dry intact. Urinary Catheter Management: Bagley: Cath Placed During This Visit: yes Reason for Continuing Indwelling Catheter: Accurate Measurement of Urinary Output in Critically Ill Patients Urinary Catheter Date of Insertion: 03/08/25 Urinary Catheter Time of Insertion: 23:18 Data 03/15/25 08:56 03/15/25 08:56 Micro: Microbiology 03/08/25 23:34 Gram Stain - Final Abdomen Anaerobic Culture - Preliminary Peptococcus anaerobius Bacteroides fragilis Wound Culture - Preliminary Escherichia coli 03/08/25 20:01 Blood Culture - Final Blood NO GROWTH AFTER 5 DAYS 03/08/25 19:59 Blood Culture - Final Blood NO GROWTH AFTER 5 DAYS A&P Assessment and plan 1. Perforated appendicitis: Plan: 54-year-old male who presented with perforated appendicitis. Pathology consistent with this. From a clinical perspective patient is doing well. Tolerating regular diet. Encourage out of bed. Continue IV antibiotics. Keep drains until follow-up as outpatient. Keep rober in place until follow-up in clinic. Rest of care per hospitalist PDMP PDMP Reviewed: Not Reviewed Attestations 2 Medical Necessity Statement*: N/A Procedures Arterial Line Size (Gauge): 20 Coding Level of Care Code 66510 Diagnoses Perforated appendicitis K35.32
[2025-03-15] VITALS (18 sets, daily range): BP systolic 103–143; BP diastolic 60–76; PULSE 53–70; RESP 14–26; TEMP 36.6–36.9; O2SAT 85–97
[2025-03-15] MEDS: albumin 25 G/100 ML BAG 60 G IV ×3 (03:07→17:46)
[2025-03-15] MEDS: piperacillin-tazobactam 3.375 GM in sodium chloride 0.9% (plus) 50 ML IV ×3 (04:30→20:51)
[2025-03-15] MEDS: pantoprazole 40 mg SDV IVP (04:30)
[2025-03-15] MEDS: HYDROcodone-acetaminophen 5-325 mg Tablet 2 TAB PO (06:09)
--- NOTE | 2025-03-15 08:57 | P.PN_ITS ---
Subjective 2 Subjective: No acute events overnight Tolerating regular diet Left drain murky. Right drain serous Midline clean dry intact Abdomen benign Vitals/I&O/Wt Last Vital Signs Temp 97.9 F 03/15/25 04:00 Pulse 70 03/15/25 04:00 Resp 20 H 03/15/25 04:00 BP 138/71 03/15/25 06:11 Pulse Ox 88 L 03/15/25 06:11 O2 Del Method Nasal Cannula 03/15/25 04:00 O2 Flow Rate 2 03/14/25 08:29 03/14/25 03/15/25 03/15/25 22:59 06:59 14:59 Intake Total 1550 / 2250 450 / 2700 50 / 50 Output Total 670 / 670 700 / 1370 Balance 880 / 1580 -250 / 1330 50 / 50 Weight last 48 hrs Weight 200 lb 13.458 oz Weight 195 lb 8.8 oz Physical Exam 2 Narrative: Chest: Unlabored breathing room air. No lymphadenopathy. Heart: Regular rate and rhythm. Abdomen: Soft, nontender, nondistended. No masses or lymphadenopathy. Left drain murky. Right drain serous. Midline clean dry intact. Urinary Catheter Management: Bagley: Cath Placed During This Visit: yes Reason for Continuing Indwelling Catheter: Accurate Measurement of Urinary Output in Critically Ill Patients Urinary Catheter Date of Insertion: 03/08/25 Urinary Catheter Time of Insertion: 23:18 Data 03/15/25 08:56 03/15/25 08:56 Micro: Microbiology 03/08/25 23:34 Gram Stain - Final Abdomen Anaerobic Culture - Preliminary Peptococcus anaerobius Bacteroides fragilis Wound Culture - Preliminary Escherichia coli A&P Assessment and plan 1. Perforated appendicitis: Plan: 54-year-old male who presented with perforated appendicitis. Clinically doing well. Tolerating regular diet. Drains are murky at times and so he will keep them until outpatient follow-up. He is at risk of developing intra- abdominal abscesses given his widespread purulent peritonitis at time of surgery. Will get infectious disease on board for antibiotic recommendations especially once discharged. They will also weigh in on interval scans and outpatient follow-up. I discussed in person with Dr. Marcum and with the hospitalist. From a surgical perspective keep drains until follow-up in clinic as well as rober. PDMP PDMP Reviewed: Not Reviewed Attestations 2 Medical Necessity Statement*: N/A Procedures Arterial Line Size (Gauge): 20 Coding Level of Care Code 97042 Diagnoses Perforated appendicitis K35.32
[2025-03-15 09:05] LABS: Hematocrit 31.8 % (37-53); Hemoglobin 10.80 g/dL (11.27-16.99); Mean Corpuscular HGB Conc 34.0 g/dL (30-55); Mean Corpuscular Hemoglobin 32.2 pg (27-33); Mean Corpuscular Volume 94.9 fl (82-101); Nucleated Red Blood Cells % 0 %; Platelet Count 125 10^3/cmm (157-399); Red Blood Count 3.35 10^6/uL (3.85-5.65); White Blood Count 16.61 10^3/uL (3.29-11.43)
[2025-03-15 09:26] LABS: Alanine Aminotransferase 25 U/L (0-41); Albumin Level 3.6 g/dL (3.5-5.2); Alkaline Phosphatase 71 U/L (40-130); Anion Gap 15.0 (5-19); Aspartate Amino Transferase 49 U/L (0-40); Blood Urea Nitrogen 49 mg/dL (6-20); Calcium 8.3 mg/dL (8.5-10.5); Carbon Dioxide 25 mmol/L (22-29); Chloride 102 mmol/L (98-107); Globulin 1.8 g/dL (1.3-4.6); Glucose 168 mg/dL (65-115); Osmolality Calculated 305 mOsm/kg (285-295); Potassium 3.0 mmol/L (3.5-5.1); Sodium 139 mmol/L (136-145); Total Protein 5.4 g/dL (6.6-8.7)
[2025-03-15] MEDS: potassium chloride oral liq 20 mEq/15 mL UDC 40 MEQ PO (11:00)
--- NOTE | 2025-03-15 13:00 | PM.CONSULT ---
Providers/Reason For Consult Consulting Physician/Specialty*: Lacey Marcum MD/Infectious Disease Reason for Consult*: intraabdominal infection Requesting Physician: Dr. Jamir Floyd, general surgery Attending Physician: Rosette Nguyen MD History of Present Illness History of Present Illness Tl Schumacher is a 54 year old undomiciled male who was brought in from [facility] on 03/09/2025 due to chief complaints of abdominal pain that had been ongoing for about a month. Per review of admission H&P, he was diagnosed with septic shock and WENCESLAO. CT of his abdomen revealed free intraperitoneal air and fluid concerning for bowel perforation with perforated appendix thought to be the source. He was taken to the operating room for ex lap on the same day where he was found to have perforated appendicitis with multiple intra-abdominal abscesses. Per review of op note about 1 L of purulent fluid was evacuated from the abdomen. Appendectomy was performed. Ascending colon transverse colon and descending colon along with stomach were noted to be intact. Abdominal cavity was washed out. Necrotic appendix was encountered with a large periappendiceal abscess. His gallbladder was noted normal. He has been on treatment with piperacillin/tazobactam since admission. Afebrile since admission. Leukocytosis of 27,000 upon admission, currently plateaued at 16,000. Hemoglobin from 16 on admission to 10.8. OR cultures from the ex lap polymicrobial showing Pepto coccus anaerobe ES, Bacteroides fragilis, E. coli. Blood culture from admission negative. He was acutely ill upon presentation requiring CRRT and ICU stay with pressors. Currently clinically improving and has been moved into the stepdown unit. He had a follow-up CT on 03/11/2025 which showed some bowel wall thickening. Most recent x-ray on 03/11/2025 showed right basilar linear density. He is currently on a regular diet. Other notable labs on this admission are positive HCVRNA. Review of Systems General: Reports: 10 or more systems reviewed and unremarkable except in HPI and below Const: Denies: fever(s), chills or body aches Eyes: Denies: change in vision, blurry vision or photophobia ENMT: Reports: hoarseness; Denies: throat pain, enlarged tonsils, odynophagia or nasal congestion Card: Denies: chest pain, palpitations, irregular heart rhythm, edema, swelling of feet/ankles, lightheadedness, pre-syncope, dyspnea on exertion or orthopnea Resp: Denies: dyspnea, productive cough, non-productive cough, wheezing, stridor, pain on inspiration, change in phlegm color, hemoptysis or chest congestion GI: Denies: abdominal pain, nausea, vomiting, hematemesis, coffee ground emesis, dysphagia, heartburn, diarrhea, constipation, GI cramping, change in stool character, hematochezia or melena : Denies: flank pain, dysuria, urinary frequency, urinary urgency, urinary hesitancy or hematuria Musc: Denies: neck pain, back pain, extremity pain, joint swelling, joint warmth or deformity Neuro: Denies: headache(s), numbness in extremities, weakness in extremities, sensory changes, difficulty walking, frequent falls, dizziness, vertigo, behavioral changes, Slurred speech present or seizure-like activity Psych: Denies: anxiety, depression, suicidal ideation or homicidal ideation Endo: Denies: polyuria, polydipsia, tired all the time, cold intolerance or hot flashes Judah/Lymph: Denies: easy bruising or easy bleeding Medications/Allergies Home Medications ?Medication ?Instructions ?Recorded ?Confirmed ?Last Taken ?Type No Known Home Medications 03/09/25 03/09/25 Unknown History Allergies Allergy/AdvReac Type Severity Reaction Status Date / Time No Known Allergies Allergy Verified 03/09/25 11:07 Current Medications Generic Name Dose Route Start Last Admin Trade Name Freq PRN Reason Stop Dose Admin Hydrocodone Bitart/Acetaminophen 2 tab 03/10/25 12:45 03/15/25 06:09 Hydrocodone-Acetaminophen 5-325 Mg Tablet PO 2 tab Q4H PRN Administration MODERATE TO SEVERE PAIN CRRT Dialysis Solution 5,000 ml 03/09/25 20:30 03/14/25 19:57 Prismasol Bgk 4/2.5 - 5,000 Ml Bag CRRT Not Given CONT [facility] Protocol CRRT Dialysis Solution 5,000 ml 03/09/25 20:30 03/14/25 19:58 Prismasol Bgk 4/2.5 - 5,000 Ml Bag CRRT Not Given CONT [facility] Protocol CRRT Dialysis Solution 5,000 ml 03/09/25 20:30 03/14/25 19:58 Prismasol Bgk 4/2.5 - 5,000 Ml Bag CRRT Not Given CONT [facility] Protocol Heparin Sodium (Porcine) 500 unit 03/09/25 20:22 03/09/25 22:58 Heparin Lock Flush 500 Unit/5 Ml Syringe IV 500 unit PRN PRN Administration At CRRT disconnect Heparin Sodium (Porcine) 5,000 unit 03/11/25 17:45 03/11/25 18:37 Heparin 5,000 Unit/Ml Inj 1 Ml SUBCUT Not Given On Hold: 03/11/25 18:37 Q12H [facility] Piperacillin Sod/Tazobactam 50 mls @ 12.5 mls/hr 03/09/25 05:00 03/15/25 08:37 Sod 3.375 gm/ Sodium Chloride IV Infused Q8H [facility] Infusion Protocol Norepinephrine Bitartrate 4 mg in 250 mls @ 0 mls/hr 03/09/25 17:45 03/14/25 18:30 Levophed IV Infused .Q0M [facility] Titration Protocol Per Protocol Albumin Human 25 g in 100 mls @ 60 mls/hr 03/09/25 18:00 03/15/25 11:26 Albumin IV Infused Q8H [facility] Infusion AMIODARONE HCL/D5W 900 mg in 500 mls @ 0 mls/hr 03/09/25 21:23 03/14/25 18:30 Amiodarone 900 Mg/500 Ml-D5w IV Infused .Q0M [facility] Titration Protocol Per Protocol Insulin Human Lispro 0 unit 03/10/25 18:00 03/15/25 12:16 Insulin Lispro 100 Unit/1 Ml SUBCUT Not Given WM&BEDTIME [facility] Protocol Morphine Sulfate 2 mg 03/10/25 12:08 03/14/25 15:38 Morphine 4 Mg/Ml Sdv 1 Ml IVP 2 mg Q6H PRN Administration SEVERE PAIN Pantoprazole Sodium 40 mg 03/09/25 05:00 03/15/25 04:30 Pantoprazole 40 Mg Sdv IVP 40 mg DAILY [facility] Administration Sodium Chloride 1,000 - 7,000 ml 03/09/25 20:22 03/09/25 21:28 Sodium Chloride 0.9% 1,000 Ml Bag CRRT 2,000 ml PRN PRN Administration For priming CRRT Machine Vitals/I&O/Wt Last Vital Signs Temp 98.0 F 03/15/25 08:00 Pulse 67 03/15/25 08:00 Resp 20 H 03/15/25 08:00 BP 138/71 03/15/25 08:00 Pulse Ox 97 03/15/25 08:00 O2 Del Method Nasal Cannula 03/15/25 04:00 O2 Flow Rate 2 03/14/25 08:29 03/14/25 03/15/25 03/15/25 22:59 06:59 14:59 Intake Total 1550 / 2250 450 / 2700 390 / 390 Output Total 670 / 670 700 / 1370 Balance 880 / 1580 -250 / 1330 390 / 390 Weight last 48 hrs Weight 91.1 kg Weight 88.7 kg Physical Exam Narrative: General: No acute distress, AO x3 HEENT: PERRLA, pupils bilaterally equal and reactive, pallors not present Chest: Normal vesicular breath sounds, no added sounds, equal good air entry bilaterally CVS: S1-S2 regular, no murmurs, no tachycardia, no gallops, no rubs Abdomen: Soft, non distended, [address], serous discharge, midline incision with rober in place, mild cloudy discharge around the umblicus, wound cx taken, bowel sounds present. Neuro: No focal deficits, no facial deformity, AO x3, power 5/5 in all limbs Extremities: RIJ cath, haney cath and right fem temp dialysis cath in place Urinary Catheter Management: Haney: Cath Placed During This Visit: yes Reason for Continuing Indwelling Catheter: Accurate Measurement of Urinary Output in Critically Ill Patients Urinary Catheter Date of Insertion: 03/08/25 Urinary Catheter Time of Insertion: 23:18 Data 03/15/25 08:56 03/15/25 08:56 Micro: Microbiology 03/08/25 23:34 Gram Stain - Final Abdomen Anaerobic Culture - Preliminary Peptococcus anaerobius Bacteroides fragilis Wound Culture - Preliminary Escherichia coli NAME: Tl Schumacher LOC: [facility] U #: [id number] AGE/SX: 54/M ROOM: [facility] RE03/09/[address]: Javier Nguyen MD : 1970 BED: 2 DIS: FAX #: STATUS: ADM IN TLOC: Spec #: [id number] Carlos: 03/08/25 Status: COMP Req #: [id number] Recd: 03/08/[address]: Marcell Wise DO Src: Blood SpDesc: Ordered: Bcult Procedure Result Verified Site Blood Culture Final 03/13/25 NO GROWTH AFTER 5 DAYS Blood Culture Preliminary (changed) 03/09/25 NEGATIVE TO DATE Blood Culture Preliminary (changed) 03/08/25 SPECIMEN COLLECTED NAME: Tl Schumacher LOC: [facility] U #: [id number] AGE/SX: 54/M ROOM: 111 RE03/09/[address]: Javier Nguyen MD : 1970 BED: 2 DIS: FAX #: STATUS: ADM IN OC: Spec #: [id number] Carlos: 03/08/25 Status: RES Req #: [id number] Recd: 03/09/[address]: Jamir Floyd MD Src: Abdomen SpDesc: Ordered: WC and GS, Anaer Procedure Result Verified Site Gram Stain Final 03/09/25-152 Result FEW WHITE BLOOD CELLS HEAVY GRAM NEGATIVE RODS FEW GRAM POSITIVE COCCI IN PAIRS FEW GRAM POSITIVE RODS Anaerobic Culture Preliminary 03/15/25-0831 Organism 1 Peptococcus anaerobius Growth FEW Organism 2 Bacteroides fragilis Growth MODERATE DAY 6 Anaerobic Culture Preliminary (changed) 03/13/25-1503 Organism 1 Peptococcus anaerobius Growth FEW Organism 2 Bacteroides fragilis Growth MODERATE DAY 4 Anaerobic Culture Preliminary (changed) 03/12/25-1728 NO ANAEROBES ISOLATED ON DAY 3 Anaerobic Culture Preliminary (changed) 03/11/25-1553 NO ANAEROBES ISOLATED ON DAY 2 Anaerobic Culture Preliminary (changed) 03/10/25-1055 NO ANAEROBES ISOLATED ON DAY 1 Wound Culture Preliminary 03/14/25-1716 Organism 1 Escherichia coli Growth MODERATE FEW MIXED SUPERFICIAL ANGELA ON DAY 5, RESULTS TO FOLLOW E coli M.I.C. RX --------- ------ * Amikacin <=16 S * Amoxicillin/Clavulanate <=8/4 S * Ampicillin >16 R * Ampicillin/Sulbactam >16/8 R * Aztreonam <=4 S * Cefepime <=8 S * Ceftriaxone <=1 S * Cefuroxime <=4 S * Ciprofloxacin <=1 S * Gentamicin <=2 S * Imipenem <=1 S * Levofloxacin <=2 S * Tetracycline >8 R * Trimethoprim/Sulfamethoxazole <=2/38 S * Piperacillin/Tazobactam <=16 S Wound Culture Preliminary (changed) 03/13/25 Organism 1 Escherichia coli Growth MODERATE FEW MIXED SUPERFICIAL ANGELA ON DAY 5, RESULTS TO FOLLOW E coli M.I.C. RX --------- ------ * Amikacin <=16 S * Amoxicillin/Clavulanate <=8/4 S * Ampicillin >16 R * Ampicillin/Sulbactam >16/8 R * Aztreonam <=4 S * Cefepime <=8 S * Ceftriaxone <=1 S * Cefuroxime <=4 S * Ciprofloxacin <=1 S * Gentamicin <=2 S * Imipenem <=1 S * Levofloxacin <=2 S * Tetracycline >8 R * Trimethoprim/Sulfamethoxazole <=2/38 S * Piperacillin/Tazobactam <=16 S Wound Culture Preliminary (changed) 03/12/25 Organism 1 Escherichia coli Growth MODERATE FEW MIXED SUPERFICIAL ANGELA ON DAY 4, RESULTS TO FOLLOW E coli M.I.C. RX --------- ------ * Amikacin <=16 S * Amoxicillin/Clavulanate <=8/4 S * Ampicillin >16 R * Ampicillin/Sulbactam >16/8 R * Aztreonam <=4 S * Cefepime <=8 S * Ceftriaxone <=1 S * Cefuroxime <=4 S * Ciprofloxacin <=1 S * Gentamicin <=2 S * Imipenem <=1 S * Levofloxacin <=2 S * Tetracycline >8 R * Trimethoprim/Sulfamethoxazole <=2/38 S * Piperacillin/Tazobactam <=16 S Wound Culture Preliminary (changed) 03/12/25 Organism 1 Escherichia coli Growth MODERATE FEW MIXED SUPERFICIAL ANGELA ON DAY 3, RESULTS TO FOLLOW E coli M.I.C. RX --------- ------ * Amikacin <=16 S * Amoxicillin/Clavulanate <=8/4 S * Ampicillin >16 R * Ampicillin/Sulbactam >16/8 R * Aztreonam <=4 S * Cefepime <=8 S * Ceftriaxone <=1 S * Cefuroxime <=4 S * Ciprofloxacin <=1 S * Gentamicin <=2 S * Imipenem <=1 S * Levofloxacin <=2 S * Tetracycline >8 R * Trimethoprim/Sulfamethoxazole <=2/38 S * Piperacillin/Tazobactam <=16 S Wound Culture Preliminary (changed) 03/11/25-1355 Organism 1 Gram Negative Rods Growth MODERATE FEW MIXED SUPERFICIAL ANGELA ON DAY 2, RESULTS TO FOLLOW Wound Culture Preliminary (changed) 03/10/25-1028 Organism 1 Gram Negative Rods Growth MODERATE DAY 1, RESULTS TO FOLLOW NAME: Tl Schumacher LOC: [facility] U #: [id number] AGE/SX: 54/M ROOM: [facility] RE03/09/[address]: Javier Nguyen MD : 1970 BED: 2 DIS: FAX #: STATUS: ADM IN TLOC: Spec #: [id number] Carlos: 03/09/25-251 Status: COMP Req #: [id number] Recd: 03/09/[address]: Marcell Wise DO Src: Urine CC SpDesc: Ordered: UC Procedure Result Verified Site Urine Culture Final 03/11/25-1150 NO GROWTH ON DAY 2 Urine Culture Preliminary (changed) 03/10/25-1006 NO GROWTH AT 18-24 HOURS Other data: Radiology Impressions Gallbladder Ultrasound 03/08/25 21:07 IMPRESSION: Sludge filled gallbladder with sonographic Dahl's sign and gallbladder wall thickening consistent with cholecystitis. Renal Ultrasound 03/09/25 17:10 IMPRESSION: 1. No hydronephrosis or renal calculus. 2. Small amount of free fluid layers over the dome of the liver. Abdomen/Pelvis CT 03/11/25 08:58 IMPRESSION: 1. No retroperitoneal hematoma. 2. Interval increase in bilateral pleural effusions. 3. Bibasilar compression atelectasis or consolidation. 4. Small free intraperitoneal air likely iatrogenic. 5. Bowel wall thickening involving the descending colon and rectosigmoid colon. Colitis can not be excluded. 6. Few mildly dilated small bowel loops in the upper abdomen. No definite transitional point. Finding could be secondary to ileus. Continued imaging follow-up is advised. 7. Multiple small bowel loops with bowel wall thickening. Enteritis can not be excluded. 8. Hepatomegaly. 9. Small abdominopelvic ascites. 10. Generalized soft tissue anasarca. Chest X-Ray 03/11/25 09:44 IMPRESSION: 1. Pulmonary edema. 2. No significant change in left lower lung field airspace disease. 3. Right basilar linear density. Finding could represent scarring or atelectasis. Laboratory Results WBC 16.61 10^3/uL (3.29-11.43) H 03/15/25 08:56 RBC 3.35 10^6/uL (3.85-5.65) L 03/15/25 08:56 Hgb 10.80 g/dL (11.27-16.99) L 03/15/25 08:56 Hct 31.8 % (37-53) L 03/15/25 08:56 MCV 94.9 fl (82-101) 03/15/25 08:56 MCH 32.2 pg (27-33) 03/15/25 08:56 MCHC 34.0 g/dL (30-55) 03/15/25 08:56 RDW 14.3 % (12.1-15.1) 03/15/25 08:56 Plt Count 125 10^3/cmm (157-399) L 03/15/25 08:56 MPV 12.8 fL (7.4-10.4) H 03/15/25 08:56 Neut % (Auto) 89.8 % 03/15/25 08:56 Lymph % (Auto) 5.7 % 03/15/25 08:56 Iroquois % (Auto) 2.4 % 03/15/25 08:56 Eos % (Auto) 0.2 % 03/15/25 08:56 Baso % (Auto) 0.3 % 03/15/25 08:56 Neut # (Auto) 14.92 10^3/uL (1.8-7.7) H 03/15/25 08:56 Lymph # (Auto) 0.9 10^3/uL (0.8-4.8) 03/15/25 08:56 Iroquois # (Auto) 0.4 10^3/uL (0.2-0.9) 03/15/25 08:56 Eos # (Auto) 0.0 10^3/uL (0.0-0.8) 03/15/25 08:56 Baso # (Auto) 0.1 10^3/uL (0.0-0.1) 03/15/25 08:56 Nucleated RBC % (auto) 0 % 03/15/25 08:56 Total Counted 100 (0-100) 03/08/25 19:59 Atypical Lymphs % 3.0 % (0-5) 03/08/25 19:59 Absolute Neutrophils 23.7 10^3/cmm (1.4-6.5) H 03/08/25 19:59 Segmented Neutrophils 52 % 03/08/25 19:59 Band Neutrophils 33.0 % 03/08/25 19:59 Absolute Lymphocytes 2.8 10^3/cmm (1.2-3.4) 03/08/25 19:59 Lymphocytes (Manual) 7 % 03/08/25 19:59 Monocytes (Manual) 4.0 % 03/08/25 19:59 Absolute Monocytes 1.1 10^3/cmm (0.1-0.6) H 03/08/25 19:59 Eosinophils (Manual) 0 % 03/08/25 19:59 Absolute Eosinophils 0.0 10^3/cmm (0.0-0.7) 03/08/25 19:59 Basophils (Manual) 0.0 % 03/08/25 19:59 Absolute Basophils 0.0 10^3/cmm (0.0-0.2) 03/08/25 19:59 Metamyelocytes 1.0 % 03/08/25 19:59 Nucleated RBCs # 0.0 /100WBC 03/15/25 08:56 Smudge Cells 1+ H 03/08/25 19:59 Platelet Estimate Normal (Normal) 03/08/25 19:59 Heparin Require Pat 0.041 OD UNITS 03/11/25 19:57 APTT 46.4 SECONDS (23.9-36.7) H 03/10/25 10:28 Sodium 139 mmol/L (136-145) 03/15/25 08:56 Potassium 3.0 mmol/L (3.5-5.1) L 03/15/25 08:56 Chloride 102 mmol/L (98-107) 03/15/25 08:56 Carbon Dioxide 25 mmol/L (22-29) 03/15/25 08:56 Anion Gap 15.0 (5-19) 03/15/25 08:56 BUN 49 mg/dL (6-20) H 03/15/25 08:56 Creatinine 1.7 mg/dL (0.7-1.2) H 03/15/25 08:56 GFR Calculation 41.9 mL/min (90-130) L 03/15/25 08:56 Glucose 168 mg/dL (65-115) H 03/15/25 08:56 POC Glucose 133 mg/dL (70-110) H 03/15/25 11:10 Estimat Average Glucose 123 03/09/25 18:10 Hemoglobin A1c 5.9 % (4.0-6.0) 03/09/25 18:10 Calculated Osmolality 305 mOsm/kg (285-295) H 03/15/25 08:56 Lactic Acid 3.7 mmol/L (0.5-2.2) H 03/09/25 08:04 Lactic Acid (Sepsis) 3.7 mmol/L (0.5-2.2) H 03/09/25 10:00 Lactate 3.0 mmol/L (0.5-2.2) H 03/09/25 18:10 Calcium 8.3 mg/dL (8.5-10.5) L 03/15/25 08:56 Phosphorus 3.2 mg/dL (2.5-4.5) 03/14/25 04:45 Magnesium 2.3 mg/dL (1.7-2.3) 03/14/25 04:45 Iron 39 ug/dL (59-158) L 03/11/25 04:04 TIBC 97 mcg/dl 03/11/25 04:04 % Saturation 40.2 % (20-50) 03/11/25 04:04 Unsat Iron Binding 58 ug/dL (112-347) L 03/11/25 04:04 Ferritin 841 ng/mL (30-400) H 03/11/25 04:04 Total Bilirubin 4.6 mg/dL (0.15-1.2) H 03/15/25 08:56 AST 49 U/L (0-40) H 03/15/25 08:56 ALT 25 U/L (0-41) 03/15/25 08:56 Alkaline Phosphatase 71 U/L (40-130) 03/15/25 08:56 Ammonia 76 umol/L (16-60) H 03/08/25 19:59 Troponin T 5th Gen ng/L 36 ng/L (0-15) H 03/09/25 18:10 Total Protein 5.4 g/dL (6.6-8.7) L 03/15/25 08:56 Albumin 3.6 g/dL (3.5-5.2) 03/15/25 08:56 Globulin 1.8 g/dL (1.3-4.6) 03/15/25 08:56 Triglycerides 211 mg/dL (0-150) H 03/09/25 18:10 Cholesterol 68 mg/dL (0-200) 03/09/25 18:10 LDL Cholesterol, Calc 13 mg/dL (50-129) L 03/09/25 18:10 HDL Cholesterol 13 mg/dL (60-100) L 03/09/25 18:10 LDL/HDL Ratio 1.00 RATIO (0.00-3.22) 03/09/25 18:10 Cholesterol/HDL Ratio 5.23 mg/dL (1.0-5.00) H 03/09/25 18:10 Lipase 52 U/L (13-60) 03/08/25 19:59 Vitamin B12 > 2000 pg/mL (232-1245) H 03/11/25 04:04 Folate 7.7 ng/mL (4.5-32.2) 03/11/25 04:04 Urine Color Dark yellow (Yellow) A 03/09/25 19:06 Urine Appearance Turbid (CLEAR) A 03/09/25 19:06 Urine pH 5.0 (5-7) 03/09/25 19:06 Ur Specific Hume 1.019 (1.005-1.030) 03/09/25 19:06 Urine Protein 2+ (Negative) A 03/09/25 19:06 Urine Glucose (UA) Negative (Normal) 03/09/25 19:06 Urine Ketones Trace (Negative) 03/09/25 19:06 Urine Blood 3+ (Negative) A 03/09/25 19:06 Urine Nitrate Negative (Negative) 03/09/25 19:06 Urine Bilirubin 1+ (Negative) H 03/09/25 19:06 Urine Urobilinogen 1.0 mg/dL (Negative) 03/09/25 19:06 Ur Leukocyte Esterase 1+ (Negative) A 03/09/25 19:06 Urine RBC >100 /hpf (0-2) H 03/09/25 19:06 Urine WBC 11-20 /hpf (0-5) H 03/09/25 19:06 Ur Squamous Epith Cells 21-50 /hpf (0-5) H 03/09/25 19:06 Amorphous Sediment Not Reportable 03/09/25 19:06 Urine Bacteria None seen /hpf (NONE) 03/09/25 19:06 Hyaline Casts 71.97 /lpf 03/09/25 19:06 Fine Granular Casts 5-10 /lpf H 03/09/25 02:52 Urine Mucus 2+ /hpf 03/09/25 02:52 Urine Osmolality 454 mOsm/kg (50-1200) 03/09/25 19:06 Ur Random Microalbumin 7 ug/dL (0-20) 03/09/25 19:06 U Random Total Protein 74 mg/dL 03/09/25 19:06 Ur Random Sodium 14 mmol/L 03/09/25 19:06 Ur Random Potassium 35 mmol/L 03/09/25 19:06 Ur Random Chloride < 10 mmol/L 03/09/25 19:06 Urine Creatinine 65 mg/dL (39-259) 03/09/25 19:06 Urine Creatinine 65 mg/dL (39-259) 03/09/25 19:06 Microalb/Creat Ratio 108 mg/dL (0-20) H 03/09/25 19:06 Nasal MRSA (PCR) Not detected (Negative) 03/09/25 19:06 Vancomycin Trough 11.6 ug/mL (10-15) 03/14/25 04:45 Random Vancomycin 11.7 ug/mL (20.0-40.0) L 03/12/25 01:53 Heparin-induced Plt Ab Negative (Negative) 03/11/25 19:57 Hep Bs Antigen Cancelled 03/10/25 03:38 Hep Bs Antibody Cancelled 03/10/25 03:38 Hep B Core Total Ab Non-reactive (Nonreactive) 03/09/25 08:04 Hepatitis C Antibody Cancelled 03/10/25 03:38 HCV RNA (PCR) IUs/ml 6.34 Log IU/mL (NOT DETECTED) H 03/10/25 03:38 HCV RNA (PCR) IU log10 [id number] IU/mL (NOT DETECTED) H 03/10/25 03:38 A&P Assessment and plan 1. Perforated appendicitis: 2. Abscess, periappendiceal: 3. Hepatitis C virus infection without hepatic coma, unspecified chronicity: Plan: 54-year-old male with recent history as described above, admitted to the hospital for perforated appendicitis and sepsis, status post ex lap and abdominal washout on day of admission. Culture from the abdomen polymicrobial. Currently appropriately covered with piperacillin/tazobactam. Chest x-ray showing right lower lobe opacity however currently no cough or expectoration. Less likely pneumonia. Continues to have a persisting white blood cell count, however clinically overall appears to be improving suspect reactive., He is tolerating a regular diet. No nausea or vomiting. No diarrhea. Last bowel movement was yesterday WENCESLAO improving with currently urine output at 950 cc since overnight. Recommend removal of right IJ central line day 7 today, Haney catheter and right femoral temp dialysis catheter if no longer required. Noted to have some cloudy discharge around the umbilicus, wound culture taken to assess for MRSA or Enterococcus species not covered by Zosyn. Continue piperacillin/tazobactam for now pending the above cultures. Drains appear to have a serous discharge. Last CT on 03/11 without any overt collections will follow PDMP PDMP Reviewed: Not Reviewed Procedures Arterial Line Size (Gauge): 20 Coding Level of Care Code Acute Code for Chg Fwd Diagnoses Perforated appendicitis K35.32 Abscess, periappendiceal K35.33 Hepatitis C virus infection without hepatic coma, unspecified chronicity B19.20 Hepatic coma status: without hepatic coma Viral hepatitis chronicity: unspecified
--- NOTE | 2025-03-15 16:52 | P.PN_ITS ---
Subjective 2 Subjective: HR better has some abdominal pain on 2L afebrile Vitals/I&O/Wt Last Vital Signs Temp 98.1 F 03/15/25 12:00 Pulse 68 03/15/25 12:00 Resp 14 03/15/25 12:00 BP 109/76 03/15/25 12:00 Pulse Ox 89 L 03/15/25 12:00 O2 Del Method Nasal Cannula 03/15/25 04:00 O2 Flow Rate 2 03/14/25 08:29 03/15/25 03/15/25 03/15/25 06:59 14:59 22:59 Intake Total 450 / 2700 630 / 630 Output Total 700 / 1370 150 / 150 Balance -250 / 1330 630 / 630 -150 / 480 Weight last 48 hrs Weight 91.1 kg Weight 88.7 kg Physical Exam 2 Narrative: NAD CTA RRR Soft, incision site intact, mild tenderness no edema Urinary Catheter Management: Bagley: Cath Placed During This Visit: yes Reason for Continuing Indwelling Catheter: Accurate Measurement of Urinary Output in Critically Ill Patients Urinary Catheter Date of Insertion: 03/08/25 Urinary Catheter Time of Insertion: 23:18 Data 03/15/25 08:56 03/15/25 08:56 Micro: Microbiology 03/08/25 23:34 Gram Stain - Final Abdomen Anaerobic Culture - Preliminary Peptococcus anaerobius Bacteroides fragilis Wound Culture - Preliminary Escherichia coli A&P Assessment and plan 1. Atrial fibrillation: 2. Thrombocytopenia: Plan: 1. Acute anemia: patient had significant drop in the hb from the time of admission and CT abd pelvis with contrast did not show any acute signs of bleeding hgb stable 2. Thrombocytopenia: Patient having thrombocytopenia status postsurgery and also found to have hepatitis C infection with positive RNA PCR detected Continue monitor 3. Hepatitis C virus infection without hepatic coma, unspecified chronicity: ID consulted to further recommendation, Continue monitor liver functions and bilirubin Patient did not show any signs of hepatic and cephalopathy or acute hepatitis Continue to monitor 4. Septic shock, due to unspecified organism: - currently resolving, Secondary to intra-abdominal source from ruptured appendix and abdominal abscesses, off vasopressors - patient initial fluid responsive, later resistant and had NE running for ~24hours and weaned off - 2 sets of blood cultures and growing gram negative rods sensitive to zosyn and to continue, d/c vancomycin - urine cultures prelim negative - Lactate series improving and adequate capillary refill observed - Maintain 2 IV bore cannulas - Patient having MAP over 65 - Blood pressure stable and to discontinue hydrocortisone - Monitor hemodynamics - Intake and output monitoring - ID consult, repeat swab, repeat imaging 5. Perforated viscus: - S/p exploratory laparotomy for ruptured appendix and abdominal wash for intra- abdominal abscesses - Continue Zosyn renally adjusted dose - Adequate analgesia - Follow surgery plan and recommendation - diet per surgery 6. Acute kidney injury: - Patient baseline kidney status is unknown and since the patient BUN and lactate is high, nephrology consulted and is on board. -creatinine better 7. Atrial fibrillation: Patient had atrial fibrillation episode, initially the EKG was more or less sinus tachycardia and later evolved into atrial fibrillation and started on amiodarone. Current heart rate is controlled and off amiodarone Echo showed ejection fraction of 59% normal left atrium. Likely atrial fibrillation triggered by septic shock. cont to monitor by manager cardiac 8. Hypoalbuminemia: recieved albumin replacement cont to follow and monitor 9. Hypokalemia: Continue potassium replacement and to monitor in the morning 10. Electrolyte imbalance: Secondary to severe WENCESLAO, continue to monitor electrolytes and correction accordingly Hypocalcemia, 2 g calcium gluconate and follow later on PDMP PDMP Reviewed: Not Reviewed Attestations 2 Medical Necessity Statement*: needs antibiotics Procedures Arterial Line Size (Gauge): 20 Coding Level of Care Code 50126 Diagnoses Atrial fibrillation I48.91 Thrombocytopenia D69.6
--- NOTE | 2025-03-15 17:27 | P.PN_ITS ---
Subjective 2 Subjective: feels better Medications: Reviewed: Yes Vitals/I&O/Wt Last Vital Signs Temp 98.1 F 03/15/25 12:00 Pulse 58 L 03/15/25 16:00 Resp 19 H 03/15/25 16:00 BP 103/60 03/15/25 16:00 Pulse Ox 96 03/15/25 16:00 O2 Del Method Nasal Cannula 03/15/25 04:00 O2 Flow Rate 2 03/14/25 08:29 03/15/25 03/15/25 03/15/25 06:59 14:59 22:59 Intake Total 450 / 2700 630 / 630 Output Total 700 / 1370 1150 / 1150 Balance -250 / 1330 630 / 630 -1150 / -520 Weight last 48 hrs Weight 91.1 kg Weight 88.7 kg Physical Exam 2 Narrative: AWAKE , ALERT , NO DISTRESS ON ROOM AIR S1S2 RRR Lungs clear Abd-post op tenderness ext , no edema skin , no rash Urinary Catheter Management: Bagley: Cath Placed During This Visit: yes Reason for Continuing Indwelling Catheter: Accurate Measurement of Urinary Output in Critically Ill Patients Urinary Catheter Date of Insertion: 03/08/25 Urinary Catheter Time of Insertion: 23:18 Data 03/15/25 08:56 03/15/25 08:56 Micro: Microbiology 03/08/25 23:34 Gram Stain - Final Abdomen Anaerobic Culture - Preliminary Peptococcus anaerobius Bacteroides fragilis Wound Culture - Preliminary Escherichia coli A&P Assessment and plan 1. Acute kidney injury: Plan: 1. Acute Kidney injury:: No baseline labs,suspect underlying CKD , patient now has WENCESLAO a due to ATN from severe sepsis. - s/p CRRT and HD x 2 sessions - UOP picked up , Cr stable - [facility] Nephrology follow @ DC 2. Sepsis secondary to perforated viscus, status post ex lap and washout, 3. Metabolic acidosis: Due to lactic acidosis, s/p bicarbonate drip , improved 4. Hypokalemia - repleted 5. Anemia ,hb 9.3 Patient evaluated using audiovisual cart. Time spent 30 minutes. PDMP PDMP Reviewed: Not Reviewed Attestations 2 Medical Necessity Statement*: per [facility] Procedures Arterial Line Size (Gauge): 20 Coding Level of Care Code Acute Code for [facility] Fwd Diagnoses Acute kidney injury N17.9
[2025-03-16] VITALS (7 sets, daily range): BP systolic 118–136; BP diastolic 53–80; PULSE 61–76; RESP 16–28; TEMP 36.6–37.9; O2SAT 88–95; BMI 27.5
[2025-03-16] MEDS: albumin 25 G/100 ML BAG 60 G IV (02:25)
[2025-03-16] MEDS: piperacillin-tazobactam 3.375 GM in sodium chloride 0.9% (plus) 50 ML IV ×2 (04:05→17:19)
[2025-03-16] MEDS: pantoprazole 40 mg SDV IVP (04:05)
[2025-03-16 06:57] LABS: Hematocrit 31.8 % (37-53); Hemoglobin 10.90 g/dL (11.27-16.99); Mean Corpuscular HGB Conc 34.3 g/dL (30-55); Mean Corpuscular Hemoglobin 32.2 pg (27-33); Mean Corpuscular Volume 94.1 fl (82-101); Nucleated Red Blood Cells % 0 %; Platelet Count 146 10^3/cmm (157-399); Red Blood Count 3.38 10^6/uL (3.85-5.65); White Blood Count 15.71 10^3/uL (3.29-11.43)
[2025-03-16 07:19] LABS: Alanine Aminotransferase 24 U/L (0-41); Albumin Level 3.6 g/dL (3.5-5.2); Alkaline Phosphatase 69 U/L (40-130); Anion Gap 14.1 (5-19); Aspartate Amino Transferase 42 U/L (0-40); Blood Urea Nitrogen 43 mg/dL (6-20); Calcium 8.3 mg/dL (8.5-10.5); Carbon Dioxide 27 mmol/L (22-29); Chloride 100 mmol/L (98-107); Globulin 1.8 g/dL (1.3-4.6); Glucose 205 mg/dL (65-115); Osmolality Calculated 303 mOsm/kg (285-295); Potassium 3.1 mmol/L (3.5-5.1); Sodium 138 mmol/L (136-145); Total Protein 5.4 g/dL (6.6-8.7)
[2025-03-16 07:36] LABS: Hepatitis B Surface Antigen Non-Reactive (Nonreactive)
[2025-03-16 07:38] LABS: HIV 1 & 2 Antigen Non-Reactive (Non-Reactiv)
--- NOTE | 2025-03-16 08:37 | P.PN_ITS ---
Subjective 2 Subjective: 54-year-old male who is status post blad inés laparotomy washout and appendectomy for perforated acute appendicitis with purulent peritonitis. Patient has had a protracted hospital course, seriously ill and is slowly recovering. I have been asked to evaluate the patient over the weekend as my colleague Dr. Floyd is out of town. He is doing okay tolerating diet passing gas and having bowel movements he does complain of some abdominal pain that is stable since yesterday Vitals/I&O/Wt Last Vital Signs Temp 97.9 F 03/16/25 07:49 Pulse 72 03/16/25 07:49 Resp 25 H 03/16/25 07:49 BP 136/66 03/16/25 07:49 Pulse Ox 95 03/16/25 07:49 O2 Del Method Room Air 03/16/25 07:46 O2 Flow Rate 2 03/14/25 08:29 03/15/25 03/16/25 03/16/25 22:59 06:59 14:59 Intake Total 350 / 980 150 / 1130 50 / 50 Output Total 1150 / 1150 550 / 1700 Balance -800 / -170 -400 / -570 50 / 50 Weight last 48 hrs Weight 203 lb 0.732 oz Weight 200 lb 13.458 oz Physical Exam 2 GI: OTHER: Abdominal examination is benign the abdomen is soft is mildly tender which is appropriate surgical incision appears healthy there is 2 drains 1 in the midline with 0 murky fluid and 1 in the left lower quadrant that has serosanguinous effluent Urinary Catheter Management: Bagley: Cath Placed During This Visit: yes, but has since been removed by the nurse Reason for Continuing Indwelling Catheter: Decision to DC Catheter Urinary Catheter Date of Insertion: 03/08/25 Urinary Catheter Time of Insertion: 23:18 Date Urinary Catheter Removed: 03/15/25 Time Urinary Catheter Discontinued: 17:30 Data 03/16/25 06:34 03/16/25 06:34 Micro: Microbiology 03/08/25 23:34 Gram Stain - Final Abdomen Anaerobic Culture - Preliminary Peptococcus anaerobius Bacteroides fragilis Wound Culture - Preliminary Escherichia coli A&P Assessment and plan 1. Perforated viscus: 2. Perforated appendicitis: 3. Hepatitis C virus infection without hepatic coma, unspecified chronicity: Plan: 54-year-old male status post laparotomy for perforated appendicitis with purulent peritonitis has had a very slow hospital course. Currently he is tolerating diet his vital signs are stable his abdominal pain is stable he does have a elevated white count but it has been trending down is 15,000 today. He still has acute kidney injury and is somehow hypokalemic. I have discussed the case with my colleague Dr. Floyd, he has recommended that the drains stay in place until the patient follow-up in clinic. I think he still requires at least 48 to 72 hours of hospital stay for continuous monitoring hydration management of his acute kidney injury. He does have a right groin line for dialysis that I think we should keep until Wednesday to ensure that the creatinine does not go to a point where he will need dialysis again. ID is following for evaluation for long-term antibiotics. All other management per primary team is appreciated. PDMP PDMP Reviewed: Not Reviewed Attestations 2 Medical Necessity Statement*: Per medical team Procedures Arterial Line Size (Gauge): 20 Coding Level of Care Code Acute Code for [facility] Fwd Diagnoses Perforated viscus R19.8 Perforated appendicitis K35.32 Hepatitis C virus infection without hepatic coma, unspecified chronicity B19.20 Viral hepatitis chronicity: unspecified Hepatic coma status: without hepatic coma
--- NOTE | 2025-03-16 08:43 | XR_ITS ---
WS: [id number] Exam: XR chest 1V portable [id number] Date/Time of Exam: 03/16/2025 9:33 AM Reason For Exam: follow up lung infiltrates Comparison 03/11/2025. Significant increase in LEFT pleural effusion. There is compressive atelectasis of the LEFT lower lobe. The heart is enlarged but unchanged in size. There is diffuse infiltrate in the mid and lower RIGHT lung. Enteric tube and RIGHT IJ catheter have been removed. Bony structures are intact. XR/XR chest 1V portable [id number] IMPRESSION: 1. Significant increased LEFT pleural effusion since previous exam. There is co mpressive atelectasis of the upper and lower lobes of the LEFT lung. 2. Marked cardiac enlargement unchanged. 3. Mild diffuse infiltrate in the mid and lower RIGHT lung.
[2025-03-16] MEDS: potassium phosphate (mEq K) 40 MEQ in sodium chloride 0.9% (100 ml) 100 ML 27.25 MEQ IV (08:54)
[2025-03-16 12:46] LABS: Coronavirus 229E,HKU1,NL63,OC4 Not Detected (NOT DETECT); Parainfluenza Virus Type 1 Not Detected (NOT DETECT); Parainfluenza Virus Type 2 Not Detected (NOT DETECT); Parainfluenza Virus Type 3 Not Detected (NOT DETECT); Parainfluenza Virus Type 4 Not Detected (NOT DETECT); SARS-COV-2 Not Detected (NOT DETECT)
--- NOTE | 2025-03-16 13:10 | P.PN_ITS ---
Subjective 2 Subjective: Patient is complaining of mild sob. Medications: Reviewed: Yes Vitals/I&O/Wt Last Vital Signs Temp 98.0 F 03/16/25 12:00 Pulse 76 03/16/25 12:00 Resp 25 H 03/16/25 12:00 BP 134/78 03/16/25 12:00 Pulse Ox 95 03/16/25 12:00 O2 Del Method Room Air 03/16/25 07:46 O2 Flow Rate 2 03/14/25 08:29 03/15/25 03/16/25 03/16/25 22:59 06:59 14:59 Intake Total 350 / 980 150 / 1130 770 / 770 Output Total 1150 / 1150 550 / 1700 250 / 250 Balance -800 / -170 -400 / -570 520 / 520 Weight last 48 hrs Weight 92.1 kg Weight 91.1 kg Physical Exam 2 Narrative: GEN: nad, alert, conversant HEAD: normocephalic, atraumatic EYES: eomi, anicteric sclera HEENT:MMM NECK: no jvd LUNGS: diminished BS left base, otherwise CTAB ABD: soft, nt, nd EXT: NO LE edema NEURO: grossly normal SKIN: no rash Urinary Catheter Management: Bagley: Cath Placed During This Visit: yes, but has since been removed by the nurse Reason for Continuing Indwelling Catheter: Decision to DC Catheter Urinary Catheter Date of Insertion: 03/08/25 Urinary Catheter Time of Insertion: 23:18 Date Urinary Catheter Removed: 03/15/25 Time Urinary Catheter Discontinued: 17:30 Data 03/16/25 06:34 03/16/25 06:34 Micro: Microbiology 03/08/25 23:34 Gram Stain - Final Abdomen Anaerobic Culture - Preliminary Peptococcus anaerobius Bacteroides fragilis Wound Culture - Preliminary Escherichia coli A&P Assessment and plan 1. Acute kidney injury: Plan: 1. Acute Kidney injury- HIs baseline creatinine is unknown; however, he likely has underlying CKD. His diann is due to ATN from severe sepsis. He is s/p CRRT and HD x 2 treatments. His renal function is stable. There is no acute indication for HD today 2. Sepsis secondary to perforated viscus- status post ex lap and washout 3. Metabolic acidosis- Due to lactic acidosis. improved 4. Hypokalemia - repleted 5. Anemia- cont to monitor hgb and transfuse as indicated PDMP PDMP Reviewed: Not Reviewed Attestations 2 Medical Necessity Statement*: diann Time Spent in Patient Care: 25 minutes Procedures Arterial Line Size (Gauge): 20 Coding Level of Care Code Acute Code for [facility]g Fwd Diagnoses Acute kidney injury N17.9
[2025-03-16 14:00] LABS: Glucose Urine UA 2+ (Normal); Nitrate Urine Negative (Negative); Specific Gravity, Urine 1.020 (1.005-1.030)
[2025-03-16 14:05] LABS: Add Urine Microscopic? YES
[2025-03-16 14:34] LABS: UA Slide Review UA Slide Review Perf
--- NOTE | 2025-03-16 16:55 | P.PN_ITS ---
Subjective 2 Subjective: no acute events overnight Vitals/I&O/Wt Last Vital Signs Temp 97.9 F 03/16/25 16:00 Pulse 67 03/16/25 16:00 Resp 19 H 03/16/25 16:00 BP 118/80 03/16/25 16:00 Pulse Ox 93 03/16/25 16:00 O2 Del Method Room Air 03/16/25 07:46 O2 Flow Rate 2 03/14/25 08:29 03/16/25 03/16/25 03/16/25 06:59 14:59 22:59 Intake Total 150 / 4412 083.6898 / 879.0909 Output Total 550 / 1700 550 / 550 Balance -400 / -320 269.3353 / 329.0909 Weight last 48 hrs Weight 92.1 kg Weight 91.1 kg Physical Exam 2 Narrative: NAD CTA RRR Soft, incision site intact, mild tenderness no edema Urinary Catheter Management: Bagley: Cath Placed During This Visit: yes, but has since been removed by the nurse Reason for Continuing Indwelling Catheter: Decision to DC Catheter Urinary Catheter Date of Insertion: 03/08/25 Urinary Catheter Time of Insertion: 23:18 Date Urinary Catheter Removed: 03/15/25 Time Urinary Catheter Discontinued: 17:30 Data 03/16/25 06:34 03/16/25 06:34 Micro: Microbiology 03/15/25 16:46 Gram Stain - Final Incision Wound Culture - Preliminary 03/08/25 23:34 Gram Stain - Final Abdomen Anaerobic Culture - Preliminary Peptococcus anaerobius Bacteroides fragilis Wound Culture - Final Escherichia coli A&P Assessment and plan 1. Acute cholecystitis: 2. Atrial fibrillation: 3. Thrombocytopenia: Plan: 1. Acute anemia: patient had significant drop in the hb from the time of admission and CT abd pelvis with contrast did not show any acute signs of bleeding hgb stable 2. Thrombocytopenia: Patient having thrombocytopenia status postsurgery and also found to have hepatitis C infection with positive RNA PCR detected Continue monitor 3. Hepatitis C virus infection without hepatic coma, unspecified chronicity: ID consulted to further recommendation, Continue monitor liver functions and bilirubin Patient did not show any signs of hepatic and cephalopathy or acute hepatitis Continue to monitor 4. Septic shock, due to unspecified organism: - currently resolving, Secondary to intra-abdominal source from ruptured appendix and abdominal abscesses, off vasopressors - patient initial fluid responsive, later resistant and had NE running for ~24hours and weaned off - 2 sets of blood cultures and growing gram negative rods sensitive to zosyn and to continue, d/c vancomycin - urine cultures prelim negative - Lactate series improving and adequate capillary refill observed - Maintain 2 IV bore cannulas - Patient having MAP over 65 - Blood pressure stable and to discontinue hydrocortisone - Monitor hemodynamics - Intake and output monitoring - ID consult, repeat swab, repeat imaging 5. Perforated viscus: - S/p exploratory laparotomy for ruptured appendix and abdominal wash for intra- abdominal abscesses - Continue Zosyn renally adjusted dose - Adequate analgesia - Follow surgery plan and recommendation - diet per surgery 6. Acute kidney injury: - Patient baseline kidney status is unknown and since the patient BUN and lactate is high, nephrology consulted and is on board. -creatinine better 7. Atrial fibrillation: Patient had atrial fibrillation episode, initially the EKG was more or less sinus tachycardia and later evolved into atrial fibrillation and started on amiodarone. Current heart rate is controlled and off amiodarone Echo showed ejection fraction of 59% normal left atrium. Likely atrial fibrillation triggered by septic shock. cont to monitor by metal room dental technician 8. Hypoalbuminemia: recieved albumin replacement cont to follow and monitor 9. Hypokalemia: Continue potassium replacement and to monitor in the morning 10. Electrolyte imbalance: Secondary to severe WENCESLAO, continue to monitor electrolytes and correction accordingly Hypocalcemia, 2 g calcium gluconate and follow later on PDMP PDMP Reviewed: Not Reviewed Attestations 2 Medical Necessity Statement*: post op care Procedures Arterial Line Size (Gauge): 20 Coding Level of Care Code 61421 Diagnoses Acute cholecystitis K81.0 Atrial fibrillation I48.91 Thrombocytopenia D69.6
[2025-03-16] MEDS: HYDROcodone-acetaminophen 5-325 mg Tablet 2 TAB PO (21:25)
[2025-03-17] VITALS (8 sets, daily range): BP systolic 108–134; BP diastolic 67–81; PULSE 60–85; RESP 16–23; TEMP 37–37.6; O2SAT 91–95; BMI 27.3
[2025-03-17] MEDS: piperacillin-tazobactam 3.375 GM in sodium chloride 0.9% (plus) 50 ML IV ×3 (00:05→17:30)
[2025-03-17] MEDS: morphine 4 mg/mL SDV 1 mL 2 MG IVP (00:05)
[2025-03-17 03:11] LABS: Hematocrit 27.4 % (37-53); Hemoglobin 9.40 g/dL (11.27-16.99); Mean Corpuscular HGB Conc 34.3 g/dL (30-55); Mean Corpuscular Hemoglobin 32.1 pg (27-33); Mean Corpuscular Volume 93.5 fl (82-101); Nucleated Red Blood Cells % 0 %; Platelet Count 166 10^3/cmm (157-399); Red Blood Count 2.93 10^6/uL (3.85-5.65); White Blood Count 14.24 10^3/uL (3.29-11.43)
[2025-03-17 03:33] LABS: Alanine Aminotransferase 29 U/L (0-41); Albumin Level 3.2 g/dL (3.5-5.2); Alkaline Phosphatase 71 U/L (40-130); Anion Gap 13.4 (5-19); Aspartate Amino Transferase 49 U/L (0-40); Blood Urea Nitrogen 38 mg/dL (6-20); Calcium 7.8 mg/dL (8.5-10.5); Carbon Dioxide 26 mmol/L (22-29); Chloride 101 mmol/L (98-107); Globulin 2.1 g/dL (1.3-4.6); Glucose 120 mg/dL (65-115); Osmolality Calculated 294 mOsm/kg (285-295); Potassium 3.4 mmol/L (3.5-5.1); Sodium 137 mmol/L (136-145); Total Protein 5.3 g/dL (6.6-8.7)
[2025-03-17] MEDS: pantoprazole 40 mg SDV IVP (05:01)
--- NOTE | 2025-03-17 05:46 | PC.NURSE ---
Before giving lantus patient BG was check. BG is 72, Dr. miller notified and asked if am Lantus can be held. Per okay to hold lantus. Patient provided with OJ and apple juice and will recheck in about an hour.
--- NOTE | 2025-03-17 07:01 | CTR_ITS ---
PROCEDURE INFORMATION: Exam: CT Chest Without Contrast; Diagnostic Exam date and time: 03/17/2025 9:25 AM Age: 54 years old Clinical indication: Fever. History of recent periappendiceal abscess status post surgery. TECHNIQUE: Imaging protocol: Diagnostic computed tomography of the chest without contrast. Radiation optimization: All CT scans at this facility use at least one of these dose optimization techniques: automated exposure control; mAC and/or kV adjustment per patient size (includes targeted exams where dose is matched to clinical indication); or iterative reconstruction. COMPARISON: CR XR chest 1V portable [id number] 03/16/2025 10:35 AM RADIATION DOSE METRICS: Total DLP (mGy-cm): 1032.88 FINDINGS: Lungs: Passive atelectasis in the chest normal bilaterally. Patchy ground-glass opacity in the right upper lobe suspicious for pneumonia. No pulmonary mass. Pleural spaces: Moderate right and large, partially loculated, left pleural effusions. No pneumothorax. Heart: No pericardial effusion. Coronary arteries: No visible coronary arterial calcifications. Esophagus: The esophagus is patulous with fluid and debris nearly to the thoracic inlet. Lymph nodes: Calcified mediastinal and left hilar lymph nodes. No significant mediastinal lymphadenopathy. Vasculature: Ectasia of the ascending thoracic aorta measuring 4.0 x 4.0 cm. There is no gross evidence of rupture. No thoracic aortic aneurysm. Diaphragm: No hiatal hernia. Bones/joints: No acute fracture is seen. Soft tissues: No significant subcutaneous soft tissue swelling. PROCEDURE INFORMATION: Exam: CT Abdomen And Pelvis Without Contrast Exam date and time: 03/17/2025 9:25 AM Age: 54 years old Clinical indication: Fever. History of recent periappendiceal abscess status post surgery. TECHNIQUE: Imaging protocol: Computed tomography of the abdomen and pelvis without contrast. Radiation optimization: All CT scans at this facility use at least one of these dose optimization techniques: automated exposure control; mA and/or kV adjustment per patient size (includes targeted exams where dose is matched to clinical indication); or iterative reconstruction. COMPARISON: CT abdomen pelvis w con* [id number] 03/11/2025 9:25 AM RADIATION DOSE METRICS: Total DLP (mGy-cm): 1032.88 FINDINGS: Tubes, catheters and devices: There are a couple abdominal drains. Liver: The liver is enlarged measuring 20.8 cm. Simple hepatic cyst measuring 1.1 cm. Gallbladder and biliary ducts: The gallbladder is largely contracted. Pancreas: The pancreas is unremarkable. Spleen: The spleen is unremarkable. Adrenal glands: The adrenal glands are unremarkable. Kidneys and ureters: The kidneys are unremarkable. Stomach and bowel: There is wall thickening involving numerous small bowel loops in the abdomen which is suspected to reflect peritonitis. A few dilated loops of small bowel are seen that are discontinuous likely reflecting adynamic state/ileus. The colon is unremarkable. Appendix: The appendix is unremarkable. Intraperitoneal space: There is increased free intraperitoneal air. Mild free fluid. Possible loculated collections in the left upper quadrant measuring 4.1 x 10.7 cm and 9.2 x 4.0 cm. Possible loculated collection in the right upper quadrant measuring 8.0 x 3.8 cm. These could represent abscesses. Vasculature: No abdominal aortic aneurysm. Lymph nodes: No retroperitoneal lymphadenopathy. Urinary bladder: Trace gas in the bladder likely reflects recent instrumentation. Reproductive: The prostate measures 3.0 x 5.7 cm. Bones/joints: No acute fracture is seen. Soft tissues: Subcutaneous fluid deep to the incision site measuring 11.1 x 3.3 x 3.2 cm. This could reflect a developing seroma or abscess. CT/[place] [id number] IMPRESSION: 1. Moderate right and large, partially loculated, left pleural effusions. 2. Patchy ground-glass opacity in the right upper lobe suspicious for pneumonia. 3. The esophagus is patulous with fluid and debris nearly to the thoracic inlet. Probable background esophagitis. 4. Ectasia of the ascending thoracic aorta measuring 4.0 x 4.0 cm. There is no gross evidence of rupture. IMPRESSION: 1. At least 3 possible loculated collections in the upper quadrants that may reflect abscesses. Suboptimally assessed without intravenous contrast. 2. There is wall thickening involving numerous small bowel loops in the abdomen which is suspected to reflect peritonitis. A few dilated loops of small bowel are seen that are discontinuous likely reflecting adynamic state/ileus. 3. Slightly increased free intraperitoneal air may relate to drains. 4. Subcutaneous fluid deep to the incision site . reflect a developing seroma or abscess. 5. Hepatomegaly. 6. Mild free fluid.
--- NOTE | 2025-03-17 07:03 | P.PN_ITS ---
Subjective 2 Subjective: Infectious Disease progress note Patient noted to have fever 100.2F overnight. Prior 24 hr trend had been at 99.9F. leukocytosis downtrending at 14K today Cr 1.9, urine output 1900cc. new 02 requirement at 2lpm, overnight sat 88% Medications: Reviewed: Yes Vitals/I&O/Wt Last Vital Signs Temp 99.5 F 03/17/25 04:00 Pulse 60 03/17/25 04:00 Resp 19 H 03/17/25 04:00 BP 130/80 03/17/25 04:00 Pulse Ox 93 03/17/25 04:00 O2 Del Method Room Air 03/16/25 07:46 O2 Flow Rate 2 03/14/25 08:29 03/16/25 03/17/25 03/17/25 22:59 06:59 14:59 Intake Total 410 / 1289.0909 850 / 2139.0909 Output Total 1430 / 1980 380 / 2360 Balance -1020 / -690.9091 470 / -220.9091 Weight last 48 hrs Weight 92.1 kg Physical Exam 2 Narrative: General: No acute distress, AO x3, intermittently coughing during interview Chest: no distress in conversation, appears comfortable No edema or clubbing reported saturated dressing with nursing, right side drain with serous greenish discharge ? bilious. Rigth drain with mild blood tinged serous discharge with crust of mucus Urinary Catheter Management: Abgley: Cath Placed During This Visit: yes, but has since been removed by the nurse Reason for Continuing Indwelling Catheter: Decision to DC Catheter Urinary Catheter Date of Insertion: 03/08/25 Urinary Catheter Time of Insertion: 23:18 Date Urinary Catheter Removed: 03/15/25 Time Urinary Catheter Discontinued: 17:30 Data 03/17/25 02:40 03/17/25 02:40 Micro: Microbiology 03/15/25 16:46 Gram Stain - Final Incision Wound Culture - Preliminary 03/08/25 23:34 Gram Stain - Final Abdomen Anaerobic Culture - Preliminary Peptococcus anaerobius Bacteroides fragilis Wound Culture - Final Escherichia coli Exam: XR chest 1V portable [id number] Date/Time of Exam: 03/16/2025 9:33 AM Reason For Exam: follow up lung infiltrates Comparison 03/11/2025. Significant increase in LEFT pleural effusion. There is compressive atelectasis of the LEFT lower lobe. The heart is enlarged but unchanged in size. There is diffuse infiltrate in the mid and lower RIGHT lung. Enteric tube and RIGHT IJ catheter have been removed. Bony structures are intact. XR/XR chest 1V portable [id number] IMPRESSION: 1. Significant increased LEFT pleural effusion since previous exam. There is compressive atelectasis of the upper and lower lobes of the LEFT lung. 2. Marked cardiac enlargement unchanged. 3. Mild diffuse infiltrate in the mid and lower RIGHT lung. A&P Assessment and plan 1. Perforated appendicitis: 2. Abscess, periappendiceal: 3. Hepatitis C virus infection without hepatic coma, unspecified chronicity: to be treated as outpatient once recovered from acute illness. No signs of acute hepatitis at this time. Plan: 54-year-old male with recent history as described above, admitted to the hospital for perforated appendicitis and sepsis, status post ex lap and abdominal washout on day of admission. Culture from the abdomen polymicrobial. Currently appropriately covered with piperacillin/tazobactam. Chest x-ray showing right lower lobe opacity however currently no cough or expectoration. Less likely pneumonia. Continues to have a persisting white blood cell count, however clinically overall appears to be improving suspect reactive., He is tolerating a regular diet. No nausea or vomiting. No diarrhea. Last bowel movement was yesterday WENCESLAO improving with currently urine output at 950 cc since overnight. Recommend removal of right IJ central line day 7 today, Bagley catheter and right femoral temp dialysis catheter if no longer required. Noted to have some cloudy discharge around the umbilicus, wound culture taken to assess for MRSA or Enterococcus species not covered by Zosyn. Continue piperacillin/tazobactam for now pending the above cultures. Drains appear to have a serous discharge. Last CT on 03/11 without any overt collections will follow 03/17/25: Tmax 100.2F overnight. previously Tmax 99.5F. s/p removal of RIJ, Bagley catheter. leukocytosis downtrending to 14K resp viral panel negative CXR taken yesterday for fever evaluation showing increased left pleural effusion, slowly increasing during course of admission. Asociated noted infiltrate in the LLL on CXR. Check Blood cx this morning given fever Ordered for CT chest w/o contrast to assess for empyema, consolidation. May need thoracentesis depending on CT results. Ct abdomen/pelvis w/o contrast additionaly ordered to assess for any new abscess formation given recent complicated history Noted elevated T.bili, mildly elevated AST, normal ALP. COncern for cholecystitis on admission. however ruled out by normal gall bladder appearance intraoperatively continue zosyn for now pending CT results Wound cx taken on 03/15 still pending Sputum cx ordered PDMP PDMP Reviewed: Not Reviewed Attestations 2 Medical Necessity Statement*: per admitting note Procedures Arterial Line Size (Gauge): 20 Coding Level of Care Code Acute Code for Chg Fwd Diagnoses Perforated appendicitis K35.32 Abscess, periappendiceal K35.33 Hepatitis C virus infection without hepatic coma, unspecified chronicity B19.20 Hepatic coma status: without hepatic coma Viral hepatitis chronicity: unspecified
--- NOTE | 2025-03-17 07:17 | PC.NURSE ---
2107- Notified Dr. Miller that patient is complaining of SOB and was placed on 2L NC due to SpO2 being 87-88%. No new orders received. 498- Notified Dr. miller that patient has K of 3.4 and Ca of 7.8. Per Dr. Miller give 40 meq PO kcl once. 6019- Notified Dr. Miller that patient is complaining of a suffocating feeling. Patient is having hard time trying to explain other symptoms. Discussed CXR again. Received orders to titrate O2 PRN.
--- NOTE | 2025-03-17 09:18 | P.PN_ITS ---
Subjective 2 Subjective: This is a 54-year-old male who is status post laparotomy washout and appendectomy for perforated appendicitis with abscess. No acute events overnight, vital signs have been stable. He is tolerating diet passing gas no nausea vomit. Vitals/I&O/Wt Last Vital Signs Temp 99.6 F 03/17/25 07:32 Pulse 66 03/17/25 07:32 Resp 23 H 03/17/25 07:32 BP 132/81 03/17/25 07:32 Pulse Ox 94 03/17/25 07:32 O2 Del Method Nasal Cannula 03/17/25 07:32 O2 Flow Rate 2 03/14/25 08:29 03/16/25 03/17/25 03/17/25 22:59 06:59 14:59 Intake Total 410 / 1289.0909 850 / 2139.0909 Output Total 1430 / 1980 380 / 2360 400 / 400 Balance -1020 / -690.9091 470 / -220.9091 -400 / -400 Weight last 48 hrs Weight 201 lb 11.567 oz Weight 203 lb 0.732 oz Physical Exam 2 Narrative: Abdomen is soft is appropriately tender to palpation no peritonitis surgical incision is closed with a clean dressing. 2 drains are in the abdomen left lower quadrant drain with seropurulent fluid and the suprapubic drain has murky fluid. Urinary Catheter Management: Bagley: Cath Placed During This Visit: yes, but has since been removed by the nurse Reason for Continuing Indwelling Catheter: Decision to DC Catheter Urinary Catheter Date of Insertion: 03/08/25 Urinary Catheter Time of Insertion: 23:18 Date Urinary Catheter Removed: 03/15/25 Time Urinary Catheter Discontinued: 17:30 Data 03/17/25 02:40 03/17/25 02:40 Micro: Microbiology 03/17/25 08:36 Blood Culture - Preliminary Blood SPECIMEN COLLECTED 03/17/25 08:35 Blood Culture - Preliminary Blood SPECIMEN COLLECTED 03/08/25 23:34 Gram Stain - Final Abdomen Anaerobic Culture - Final Peptococcus anaerobius Bacteroides fragilis Wound Culture - Final Escherichia coli 03/15/25 16:46 Gram Stain - Final Incision Wound Culture - Preliminary A&P Assessment and plan 1. Perforated viscus: 2. Abscess, periappendiceal: 3. Septic shock, due to unspecified organism: Plan: Patient progression is slow, he is slowly showing some improvement, his white count has trended down in the last 48 hours from 16-14, his creatinine is still elevated 1.9. We are holding on removing the dialysis catheter until we are sure he is no longer going to needed, we will make this determination by Wednesday. Will continue current treatment and monitoring. At this time no need for additional interventions from the surgical standpoint but we will continue close follow-up of this patient. A chest x-ray done for him yesterday showed some atelectasis and [place] of an increased left pleural effusion I have encouraged him to ambulate. Patient most likely will have to stay in house until drains can be removed as his placement most likely is going to be to a senior living in [place], and is unsure of how he will travel back for follow-up. PDMP PDMP Reviewed: Not Reviewed Attestations 2 Medical Necessity Statement*: Per medical team Procedures Arterial Line Size (Gauge): 20 Coding Level of Care Code Acute Code for Chg Fwd Diagnoses Perforated viscus R19.8 Abscess, periappendiceal K35.33 Septic shock, due to unspecified organism A41.9; R65.21
[2025-03-17] MEDS: potassium chloride premix 100 ML 50 MEQ IV (10:37)
--- NOTE | 2025-03-17 11:00 | P.PN_ITS ---
Subjective 2 Subjective: Patient is complaining of sob on 2L o2. Medications: Reviewed: Yes Vitals/I&O/Wt Last Vital Signs Temp 99.6 F 03/17/25 07:32 Pulse 66 03/17/25 07:32 Resp 23 H 03/17/25 07:32 BP 132/81 03/17/25 07:32 Pulse Ox 94 03/17/25 07:32 O2 Del Method Nasal Cannula 03/17/25 07:32 O2 Flow Rate 2 03/14/25 08:29 03/16/25 03/17/25 03/17/25 22:59 06:59 14:59 Intake Total 410 / 1289.0909 850 / 2139.0909 69.167 / 69.167 Output Total 1430 / 1980 380 / 2360 400 / 400 Balance -1020 / -690.9091 470 / -220.9091 -330.833 / -330.833 Weight last 48 hrs Weight 91.5 kg Weight 92.1 kg Physical Exam 2 Narrative: GEN: nad, alert, conversant HEAD: normocephalic, atraumatic EYES: eomi, anicteric sclera HEENT: MMM NECK: no jvd LUNGS: diminished BS left base, otherwise CTAB ABD: soft, nt, nd EXT: NO LE edema NEURO: grossly normal SKIN: no rash Urinary Catheter Management: Bagley: Cath Placed During This Visit: yes, but has since been removed by the nurse Reason for Continuing Indwelling Catheter: Decision to DC Catheter Urinary Catheter Date of Insertion: 03/08/25 Urinary Catheter Time of Insertion: 23:18 Date Urinary Catheter Removed: 03/15/25 Time Urinary Catheter Discontinued: 17:30 Data 03/17/25 02:40 03/17/25 02:40 Micro: Microbiology 03/16/25 13:25 Urine Culture - Preliminary Urine,Voided 03/17/25 08:36 Blood Culture - Preliminary Blood SPECIMEN COLLECTED 03/17/25 08:35 Blood Culture - Preliminary Blood SPECIMEN COLLECTED 03/08/25 23:34 Gram Stain - Final Abdomen Anaerobic Culture - Final Peptococcus anaerobius Bacteroides fragilis Wound Culture - Final Escherichia coli 03/15/25 16:46 Gram Stain - Final Incision Wound Culture - Preliminary A&P Assessment and plan 1. Acute kidney injury: Plan: 1. Acute Kidney injury- His baseline creatinine is unknown; however, he likely has underlying CKD. His diann is due to ATN from severe sepsis. He is s/p CRRT and HD x 2 treatments. His renal function remains stable. There is no acute indication for HD today. He renal function has recovered. He is also having fevers and has a temporary femoral hd catheter. Please remove the femoral hd catheter 2. Sepsis secondary to perforated viscus- status post ex lap and washout. s/p ct abd today 3. Metabolic acidosis- Due to lactic acidosis. improved 4. Hypokalemia - repleted 5. Anemia- cont to monitor hgb and transfuse as indicated PDMP PDMP Reviewed: Not Reviewed Attestations 2 Medical Necessity Statement*: diann Time Spent in Patient Care: 25 minutes Procedures Arterial Line Size (Gauge): 20 Coding Level of Care Code Acute Code for Chg Fwd Diagnoses Acute kidney injury N17.9
--- NOTE | 2025-03-17 16:02 | P.TS_ITS ---
Transfer Summary Providers Date of Admission: 03/09/25 00:32 Date of Discharge/Transfer: 03/17/25 Attending Provider at Admission: Jamir Floyd MD Attending Provider at Transfer: Rosette Nguyen MD Transfer Plans: Anticipated date of transfer: 03/17/25 . Diagnoses at Discharge Discharge Diagnosis 1. Acute kidney injury: Reason for Visit Reason for Visit ABDOMINAL PAIN Hospital Course Hospital Course H&P Tl Schumacher is a 54 year old male from group home ( custody of [facility] ) came due to abd pain that has been ongoing for a month or so. he was nauseated as well but denied any vomiting. no fever or chills. the patient does not endorse having any other medical condition. On further evaluation the patient was found to have perforated viscus in the ER. His labs were concerning for septic shock with WENCESLAO and high lactic acid. He was taken to the OR and was found to have perforated appendix and intrabd abscess. he underwent ex lap with removal of the appendix and abd washout. 2 drains were inserted. he was extubated post surgery. currently on NGT as per surgery plan. the patient did not endorse any chest pain, chest pressure, lower leg swellings or any other symptoms like SOB or dizziness. rest of the review of system is unremarkable currently the patient is feeling well and is under police obs with hand cuffed to the ICU bed. course: The patient underwent emergent surgery exploratory laparotomy washout appendectomy. Placed on. Antibiotics. Diagnosed with septic shock. He was in the ICU. He was on pressors. Nephrology consultation was placed for CRRT. Diet was eventually advanced. Patient was noted to have increased white count. He had repeat imaging. Which showed concern for early abscess as well as loculation in the lungs and upper abdomen. Surgery recommended transfer for IR eval. He may need intervention for loculation in his lungs as well as potentially early abscess in the abdomen. Imaging was pushed over requested to [facility]. Physical Exam Narrative: General: No acute distress, AO x3, intermittently coughing during interview Chest: no distress in conversation, appears comfortable No edema or clubbing reported saturated dressing with nursing, right side drain with serous greenish discharge ? bilious. Rigth drain with mild blood tinged serous discharge with crust of mucus Urinary Catheter Management: Bagley: Cath Placed During This Visit: yes, but has since been removed by the nurse Reason for Continuing Indwelling Catheter: Decision to DC Catheter Urinary Catheter Date of Insertion: 03/08/25 Urinary Catheter Time of Insertion: 23:18 Date Urinary Catheter Removed: 03/15/25 Time Urinary Catheter Discontinued: 17:30 TS Data Studies Completed and Pending Pending at discharge Category Date Time Status Blood Culture Routine Lab 03/17/25 08:36 Results CBC Auto Diff [Complete Blood Count w/Auto] AM LABS Lab 03/18/25 04:00 Ordered CMP [Comprehensive Metabolic Panel] AM LABS Lab 03/18/25 04:00 Ordered RPR with Reflex to Titer AM LABS Lab 03/16/25 06:34 Received Sputum Culture and Gram Stain Routine Lab 03/17/25 07:05 Uncollected Urine Culture Routine Lab 03/16/25 13:25 Results Wound Culture and Gram Stain Routine Lab 03/15/25 16:46 Results Completed Studies During Hospitalization Category Date Time Status CT abdomen pelvis w con* [id number] Stat Cat Scan 03/11/25 08:[address] abdomen pelvis wo con [id number] Stat Cat Scan 03/08/25 20:[address] chest abdomen pelvis [[place] [id number] Cat Scan 03/17/25 07:01 Completed ] Routine CXRP [XR chest 1V portable [id number]] Routine Exams 03/16/25 08:43 Completed CXRP [XR chest 1V portable [id number]] Stat Exams 03/09/25 19:14 Completed XR chest 1V portable [id number] Stat Exams 03/08/25 19:49 Completed XR chest 1V portable [id number] Stat Exams 03/09/25 01:42 Completed XR chest 1V portable [id number] Urgent Exams 03/11/25 09:44 Completed Pathology: Surgical [PTH] Routine Pth 03/09/25 01:09 Completed CV. echo complete* [id number] Routine Ultrasound 03/10/25 17:52 Completed US gall bladder [id number] Stat Ultrasound 03/08/25 21:07 Completed US renal BI* [id number] Routine Ultrasound 03/09/25 17:10 Completed Laboratory Last Values WBC 14.24 10^3/uL (3.29-11.43) H 03/17/25 02:40 RBC 2.93 10^6/uL (3.85-5.65) L 03/17/25 02:40 Hgb 9.40 g/dL (11.27-16.99) L 03/17/25 02:40 Hct 27.4 % (37-53) L 03/17/25 02:40 MCV 93.5 fl (82-101) 03/17/25 02:40 MCH 32.1 pg (27-33) 03/17/25 02:40 MCHC 34.3 g/dL (30-55) 03/17/25 02:40 RDW 14.7 % (12.1-15.1) 03/17/25 02:40 Plt Count 166 10^3/cmm (157-399) 03/17/25 02:40 MPV 12.2 fL (7.4-10.4) H 03/17/25 02:40 Neut % (Auto) 84.8 % 03/17/25 02:40 Lymph % (Auto) 7.7 % 03/17/25 02:40 [place] % (Auto) 6.0 % 03/17/25 02:40 Eos % (Auto) 0.5 % 03/17/25 02:40 Baso % (Auto) 0.1 % 03/17/25 02:40 Neut # (Auto) 12.06 10^3/uL (1.8-7.7) H 03/17/25 02:40 Lymph # (Auto) 1.1 10^3/uL (0.8-4.8) 03/17/25 02:40 [place] # (Auto) 0.9 10^3/uL (0.2-0.9) 03/17/25 02:40 Eos # (Auto) 0.1 10^3/uL (0.0-0.8) 03/17/25 02:40 Baso # (Auto) 0.0 10^3/uL (0.0-0.1) 03/17/25 02:40 Nucleated RBC % (auto) 0 % 03/17/25 02:40 Total Counted 100 (0-100) 03/08/25 19:59 Atypical Lymphs % 3.0 % (0-5) 03/08/25 19:59 Absolute Neutrophils 23.7 10^3/cmm (1.4-6.5) H 03/08/25 19:59 Segmented Neutrophils 52 % 03/08/25 19:59 Band Neutrophils 33.0 % 03/08/25 19:59 Absolute Lymphocytes 2.8 10^3/cmm (1.2-3.4) 03/08/25 19:59 Lymphocytes (Manual) 7 % 03/08/25 19:59 Monocytes (Manual) 4.0 % 03/08/25 19:59 Absolute Monocytes 1.1 10^3/cmm (0.1-0.6) H 03/08/25 19:59 Eosinophils (Manual) 0 % 03/08/25 19:59 Absolute Eosinophils 0.0 10^3/cmm (0.0-0.7) 03/08/25 19:59 Basophils (Manual) 0.0 % 03/08/25 19:59 Absolute Basophils 0.0 10^3/cmm (0.0-0.2) 03/08/25 19:59 Metamyelocytes 1.0 % 03/08/25 19:59 Nucleated RBCs # 0.0 /100WBC 03/17/25 02:40 Smudge Cells 1+ H 03/08/25 19:59 Platelet Estimate Normal (Normal) 03/08/25 19:59 Heparin Require Pat 0.041 OD UNITS 03/11/25 19:57 APTT 46.4 SECONDS (23.9-36.7) H 03/10/25 10:28 Sodium 137 mmol/L (136-145) 03/17/25 02:40 Potassium 3.4 mmol/L (3.5-5.1) L 03/17/25 02:40 Chloride 101 mmol/L (98-107) 03/17/25 02:40 Carbon Dioxide 26 mmol/L (22-29) 03/17/25 02:40 Anion Gap 13.4 (5-19) 03/17/25 02:40 BUN 38 mg/dL (6-20) H 03/17/25 02:40 Creatinine 1.9 mg/dL (0.7-1.2) H 03/17/25 02:40 GFR Calculation 36.9 mL/min (90-130) L 03/17/25 02:40 Glucose 120 mg/dL (65-115) H 03/17/25 02:40 POC Glucose 153 mg/dL (70-110) H 03/17/25 10:18 Estimat Average Glucose 123 03/09/25 18:10 Hemoglobin A1c 5.9 % (4.0-6.0) 03/09/25 18:10 Calculated Osmolality 294 mOsm/kg (285-295) 03/17/25 02:40 Lactic Acid 3.7 mmol/L (0.5-2.2) H 03/09/25 08:04 Lactic Acid (Sepsis) 3.7 mmol/L (0.5-2.2) H 03/09/25 10:00 Lactate 3.0 mmol/L (0.5-2.2) H 03/09/25 18:10 Calcium 7.8 mg/dL (8.5-10.5) L 03/17/25 02:40 Phosphorus 3.2 mg/dL (2.5-4.5) 03/14/25 04:45 Magnesium 2.3 mg/dL (1.7-2.3) 03/14/25 04:45 Iron 39 ug/dL (59-158) L 03/11/25 04:04 TIBC 97 mcg/dl 03/11/25 04:04 % Saturation 40.2 % (20-50) 03/11/25 04:04 Unsat Iron Binding 58 ug/dL (112-347) L 03/11/25 04:04 Ferritin 841 ng/mL (30-400) H 03/11/25 04:04 Total Bilirubin 2.8 mg/dL (0.15-1.2) H 03/17/25 02:40 AST 49 U/L (0-40) H 03/17/25 02:40 ALT 29 U/L (0-41) 03/17/25 02:40 Alkaline Phosphatase 71 U/L (40-130) 03/17/25 02:40 Ammonia 76 umol/L (16-60) H 03/08/25 19:59 Troponin T 5th Gen ng/L 36 ng/L (0-15) H 03/09/25 18:10 Total Protein 5.3 g/dL (6.6-8.7) L 03/17/25 02:40 Albumin 3.2 g/dL (3.5-5.2) L 03/17/25 02:40 Globulin 2.1 g/dL (1.3-4.6) 03/17/25 02:40 Triglycerides 211 mg/dL (0-150) H 03/09/25 18:10 Cholesterol 68 mg/dL (0-200) 03/09/25 18:10 LDL Cholesterol, Calc 13 mg/dL (50-129) L 03/09/25 18:10 HDL Cholesterol 13 mg/dL (60-100) L 03/09/25 18:10 LDL/HDL Ratio 1.00 RATIO (0.00-3.22) 03/09/25 18:10 Cholesterol/HDL Ratio 5.23 mg/dL (1.0-5.00) H 03/09/25 18:10 Lipase 52 U/L (13-60) 03/08/25 19:59 Vitamin B12 > 2000 pg/mL (232-1245) H 03/11/25 04:04 Folate 7.7 ng/mL (4.5-32.2) 03/11/25 04:04 Urine Color Yellow (Yellow) 03/16/25 13:25 Urine Appearance Cloudy (CLEAR) A 03/16/25 13:25 Urine pH 5.0 (5-7) 03/16/25 13:25 Ur Specific [place] 1.020 (1.005-1.030) 03/16/25 13:25 Urine Protein 2+ (Negative) A 03/16/25 13: Urine Glucose (UA) 2+ (Normal) H 03/16/25 13:25 Urine Ketones Negative (Negative) 03/16/25 13:25 Urine Blood Trace (Negative) A 03/16/25 13: Urine Nitrate Negative (Negative) 03/16/25 13:25 Urine Bilirubin Negative (Negative) 03/16/25 13:25 Urine Urobilinogen 0.2 mg/dL (Negative) 03/16/25 13:25 Ur Leukocyte Esterase Negative (Negative) 03/16/25 13:25 Urine RBC 3-5 /hpf (0-2) 03/16/25 13:25 Urine WBC 0-5 /hpf (0-5) 03/16/25 13:25 Ur Squamous Epith Cells 0-5 /hpf (0-5) 03/16/25 13:25 Amorphous Sediment Not Reportable 03/16/25 13:25 Urine Bacteria None seen /hpf (NONE) 03/16/25 13:25 Hyaline Casts 5.77 /lpf 03/16/25 13:25 Fine Granular Casts 5-10 /lpf H 03/16/25 13:25 Urine Mucus 2+ /hpf 03/09/25 02:52 Urine Osmolality 454 mOsm/kg (50-1200) 03/09/25 19:06 Ur Random Microalbumin 7 ug/dL (0-20) 03/09/25 19:06 U Random Total Protein 74 mg/dL 03/09/25 19:06 Ur Random Sodium 14 mmol/L 03/09/25 19:06 Ur Random Potassium 35 mmol/L 03/09/25 19:06 Ur Random Chloride < 10 mmol/L 03/09/25 19:06 Urine Creatinine 65 mg/dL (39-259) 03/09/25 19:06 Urine Creatinine 65 mg/dL (39-259) 03/09/25 19:06 Microalb/Creat Ratio 108 mg/dL (0-20) H 03/09/25 19:06 Nasal MRSA (PCR) Not detected (Negative) 03/09/25 19:06 Vancomycin Trough 11.6 ug/mL (10-15) 03/14/25 04:45 Random Vancomycin 11.7 ug/mL (20.0-40.0) L 03/12/25 01:53 Heparin-induced Plt Ab Negative (Negative) 03/11/25 19:57 UF Heparin Result Negative (Negative) 03/11/25 19:57 LAUREL UFH Low Dose 0.1 0 % Release 03/11/25 19:57 LAUREL UFH Low Dose 0.5 0 % Release 03/11/25 19:57 LAUREL UFH High Dose 100 0 % Release 03/11/25 19:57 Adenovirus (PCR) Not detected (NOT DETECT) 03/16/25 10:30 C. pneumoniae DNA (PCR) Not detected (NOT DETECT) 03/16/25 10:30 Coronavirus 229E (PCR) Not detected (NOT DETECT) 03/16/25 10:30 Hep Bs Antigen Non-reactive (Nonreactive) 03/16/25 06:34 Hep Bs Antibody 6.0 (11.5-1000) L 03/16/25 06:34 Hep B Core Total Ab Non-reactive (Nonreactive) 03/16/25 06:34 Hepatitis C Antibody Cancelled 03/10/25 03:38 HCV RNA (PCR) IUs/ml 6.34 Log IU/mL (NOT DETECTED) H 03/10/25 03:38 HCV RNA (PCR) IU log10 [id number] IU/mL (NOT DETECTED) H 03/10/25 03:38 HIV 1&2 Ab & HIV 1 Ag Non-reactive (Non-Reactiv) 03/16/25 06:34 HIV 1&2 Antibody Non-reactive (Non-Reactiv) 03/16/25 06:34 Human Metapneumovir PCR Not detected (NOT DETECT) 03/16/25 10:30 Influenza A (H1) PCR Not detected (NOT DETECT) 03/16/25 10:30 Influ A (H1/09) PCR Not detected (NOT DETECT) 03/16/25 10:30 Influenza A (H3) PCR Not detected (NOT DETECT) 03/16/25 10:30 Influenza Type A (PCR) Not detected (NOT DETECT) 03/16/25 10:30 Influenza Type B (PCR) Not detected (NOT DETECT) 03/16/25 10:30 M. pneumoniae (PCR) Not detected (NOT DETECT) 03/16/25 10:30 Parainfluenza 1 (PCR) Not detected (NOT DETECT) 03/16/25 10:30 Parainfluenza 2 (PCR) Not detected (NOT DETECT) 03/16/25 10:30 Parainfluenza 3 (PCR) Not detected (NOT DETECT) 03/16/25 10:30 Parainfluenza 4 (PCR) Not detected (NOT DETECT) 03/16/25 10:30 RSV Type A (PCR) Not detected (NOT DETECT) 03/16/25 10:30 RSV Type B (PCR) Not detected (NOT DETECT) 03/16/25 10:30 Entero/Rhino (PCR) Not detected (NOT DETECT) 03/16/25 10:30 SARS-CoV-2 (PCR) Not detected (NOT DETECT) 03/16/25 10:30 Radiology Impressions Gallbladder Ultrasound 03/08/25 21:07 IMPRESSION: Sludge filled gallbladder with sonographic Dahl's sign and gallbladder wall thickening consistent with cholecystitis. Renal Ultrasound 03/09/25 17:10 IMPRESSION: 1. No hydronephrosis or renal calculus. 2. Small amount of free fluid layers over the dome of the liver. Abdomen/Pelvis CT 03/11/25 08:58 IMPRESSION: 1. No retroperitoneal hematoma. 2. Interval increase in bilateral pleural effusions. 3. Bibasilar compression atelectasis or consolidation. 4. Small free intraperitoneal air likely iatrogenic. 5. Bowel wall thickening involving the descending colon and rectosigmoid colon. Colitis can not be excluded. 6. Few mildly dilated small bowel loops in the upper abdomen. No definite transitional point. Finding could be secondary to ileus. Continued imaging follow-up is advised. 7. Multiple small bowel loops with bowel wall thickening. Enteritis can not be excluded. 8. Hepatomegaly. 9. Small abdominopelvic ascites. 10. Generalized soft tissue anasarca. Chest X-Ray 03/16/25 08:43 IMPRESSION: 1. Significant increased LEFT pleural effusion since previous exam. There is compressive atelectasis of the upper and lower lobes of the LEFT lung. 2. Marked cardiac enlargement unchanged. 3. Mild diffuse infiltrate in the mid and lower RIGHT lung. Chest/Abdomen/Pelvis CT 03/17/25 07:01 IMPRESSION: 1. Moderate right and large, partially loculated, left pleural effusions. 2. Patchy ground-glass opacity in the right upper lobe suspicious for pneumonia. 3. The esophagus is patulous with fluid and debris nearly to the thoracic inlet. Probable background esophagitis. 4. Ectasia of the ascending thoracic aorta measuring 4.0 x 4.0 cm. There is no gross evidence of rupture. IMPRESSION: 1. At least 3 possible loculated collections in the upper quadrants that may reflect abscesses. Suboptimally assessed without intravenous contrast. 2. There is wall thickening involving numerous small bowel loops in the abdomen which is suspected to reflect peritonitis. A few dilated loops of small bowel are seen that are discontinuous likely reflecting adynamic state/ileus. 3. Slightly increased free intraperitoneal air may relate to drains. 4. Subcutaneous fluid deep to the incision site . reflect a developing seroma or abscess. 5. Hepatomegaly. 6. Mild free fluid. ADDENDUM: 03/17/[address] Nguyen at 03/17/2025 10:15 AM [employer] TECH[employer]. Recent Clincial Data Last Vital Signs Temp 99.6 F 03/17/25 07:32 Pulse 66 03/17/25 11:44 Resp 22 H 03/17/25 11:44 BP 131/74 03/17/25 11:44 Pulse Ox 95 03/17/25 11:44 O2 Del Method Nasal Cannula 03/17/25 11:44 O2 Flow Rate 2 03/14/25 08:29 Vital Signs Temp Pulse Resp BP Pulse Ox O2 Del Method 03/17/25 11:44 66 22 H 131/74 95 Nasal Cannula 03/17/25 07:32 99.6 F 66 23 H 132/81 94 Nasal Cannula Intake & Output/Weight 03/15/25 03/16/25 03/17/25 03/18/25 06:59 06:59 06:59 06:59 Intake Total 2700 / 2700 1130 / 1130 2139.0909 / 2139.0909 309.167 / 309.167 Output Total 1370 / 1370 1700 / 1700 2360 / 2360 400 / 400 Balance 1330 / 1330 -570 / -570 -220.9091 / -220.9091 -90.833 / -90.833 Weight 91.1 kg 92.1 kg 91.5 kg Vitals Last Vital Signs Temp 99.6 F 03/17/25 07:32 Pulse 66 03/17/25 11:44 Resp 22 H 03/17/25 11:44 BP 131/74 03/17/25 11:44 Pulse Ox 95 03/17/25 11:44 O2 Del Method Nasal Cannula 03/17/25 11:44 O2 Flow Rate 2 03/14/25 08:29 TS Medications Medications Acetaminophen (Acetaminophen 325 Mg Tablet) 650 mg PO Q6H PRN PRN Reason: MILD PAIN Hydrocodone Bitart/Acetaminophen (Hydrocodone-Acetaminophen 5-325 Mg Tablet) 2 tab PO Q4H PRN PRN Reason: MODERATE TO SEVERE PAIN Last Admin: 03/16/25 21:25 Dose: 2 tab Alteplase, Recombinant (Alteplase 1 Mg/Ml Sdv 2 Ml) 0 mg INTRACATH Q2H PRN; Protocol PRN Reason: Poor Catheter Flow/ Clotted Catheter Atropine Sulfate (Atropine 0.1 Mg/Ml Syr 10 Ml) 1 mg IVP Q5M PRN PRN Reason: SYMPTOMATIC BRADYCARDIA Azithromycin (Azithromycin 250 Mg Tablet) 500 mg PO DAILY CHERY; Protocol Stop: 03/21/25 04:59 CRRT Dialysis Solution (Prismasol Bgk 4/2.5 - 5,000 Ml Bag) 5,000 ml CRRT CONT CHERY; Protocol Last Admin: 03/16/25 20:04 Dose: Not Given CRRT Dialysis Solution (Prismasol Bgk 4/2.5 - 5,000 Ml Bag) 5,000 ml CRRT CONT CHERY; Protocol Last Admin: 03/16/25 20:04 Dose: Not Given CRRT Dialysis Solution (Prismasol Bgk 4/2.5 - 5,000 Ml Bag) 5,000 ml CRRT CONT CHERY; Protocol Last Admin: 03/16/25 20:04 Dose: Not Given Glucagon (Glucagon 1 Mg/Ml Kit 1 Ml) 1 mg IM ONCE PRN; Protocol PRN Reason: Adult Acute Hypoglycemia Nursing Prot. Heparin Sodium (Porcine) (Heparin Lock Flush 500 Unit/5 Ml Syringe) 500 unit IV PRN PRN PRN Reason: At CRRT disconnect Last Admin: 03/09/25 22:58 Dose: 500 unit Heparin Sodium (Porcine) (Heparin 5,000 Unit/Ml Inj 1 Ml) 5,000 unit SUBCUT Q12H CHERY On Hold: 03/11/25 18:37 Last Admin: 03/11/25 18:37 Dose: Not Given Piperacillin Sod/Tazobactam (Sod 3.375 gm/ Sodium Chloride) 50 mls @ 12.5 mls/hr IV Q8H CHERY; Protocol Last Infusion: 03/17/25 10:27 Dose: Infused Norepinephrine Bitartrate (Levophed) 4 mg in 250 mls @ 0 mls/hr IV .Q0M CHERY; Protocol Last Titration: 03/14/25 18:30 Dose: Infused AMIODARONE HCL/D5W (Amiodarone 900 Mg/500 Ml-D5w) 900 mg in 500 mls @ 0 mls/hr IV .Q0M CHERY; Protocol Last Titration: 03/14/25 18:30 Dose: Infused Sodium Chloride (Sodium Chloride 0.9%) 1,000 mls @ 0 mls/hr IV .Q0M PRN PRN Reason: hypotension or symptomatic Dextrose (D5w) 500 mls @ 0 mls/hr IV ONCE PRN; Protocol PRN Reason: Adult Acute Hypoglycemia Prot Dextrose (D10w) 125 mls @ 750 mls/hr IV PRN PRN; Protocol PRN Reason: Adult Acute Hypoglycemia Nursing Protocol Dextrose (D10w) 250 mls @ 1,000 mls/hr IV PRN PRN; Protocol PRN Reason: Adult Acute Hypoglycemia Nursing Protocol Sodium Chloride (Sodium Chloride 0.9%) 1,000 mls @ 0 mls/hr IV .Q0M PRN PRN Reason: hypotension or symptomatic Albumin Human (Albumin) 12.5 gm in 50 mls @ 60 mls/hr IV PRN PRN PRN Reason: Hypotension and/or symptomatic Insulin Human Lispro (Insulin Lispro 100 Unit/1 Ml) 0 unit SUBCUT WM&BEDTIME [facility]; Protocol Last Admin: 03/17/25 13:56 Dose: Not Given Morphine Sulfate (Morphine 4 Mg/Ml Sdv 1 Ml) 2 mg IVP Q6H PRN PRN Reason: SEVERE PAIN Last Admin: 03/17/25 00:05 Dose: 2 mg Ondansetron HCl (Ondansetron 2 Mg/Ml Sdv 2 Ml) 4 mg IVP Q6H PRN PRN Reason: NAUSEA AND VOMITING Pantoprazole Sodium (Pantoprazole 40 Mg Sdv) 40 mg IVP DAILY [facility] Last Admin: 03/17/25 05:01 Dose: 40 mg Senna (Sennosides 8.6 Mg Tablet) 17.2 mg PO DAILY PRN PRN Reason: CONSTIPATION Sodium Chloride (Sodium Chloride 0.9% 1,000 Ml Bag) 1,000 - 7,000 ml CRRT PRN PRN PRN Reason: For priming CRRT Machine Last Admin: 03/09/25 21:28 Dose: 2,000 ml Discontinued Medications Atropine Sulfate (Atropine 0.1 Mg/Ml Syr 10 Ml) 1 mg IVP Q5M [facility] Stop: 03/11/25 11:56 Last Admin: 03/11/25 13:06 Dose: Not Given Dexamethasone (Dexamethasone 4 Mg/Ml Inj) Confirm Administered Dose 8 mg .ROUTE .STK-MED ONE Stop: 03/08/25 22:34 Fentanyl (Fentanyl 50 Mcg/Ml Inj 2ml) Confirm Administered Dose 100 mcg .ROUTE .STK-MED ONE Stop: 03/08/25 22:37 Furosemide (Furosemide 10 Mg/Ml Sdv 4ml) 40 mg IVP ONCE ONE Stop: 03/13/25 09:28 Last Admin: 03/13/25 09:37 Dose: 40 mg Heparin Sodium (Porcine) (Heparin 5,000 Unit/Ml Inj 1 Ml) 5,000 unit SUBCUT Q12H [facility] Last Admin: 03/09/25 12:10 Dose: 5,000 unit Heparin Sodium (Porcine) (Heparin 5,000 Unit/Ml Inj 1 Ml) 0 unit IVP PRN PRN; Protocol PRN Reason: Heparin Weight Based Protocol -Subsequent Bolus Last Admin: 03/10/25 11:22 Dose: 1,800 unit Heparin Sodium (Porcine) (Heparin, Porcine 1,000 Unit/Ml Inj 10 Ml) 10,000 unit INTRACATH ONCE ONE Stop: 03/10/25 17:02 Last Admin: 03/10/25 20:39 Dose: 10,000 unit Heparin Sodium (Porcine) (Heparin, Porcine 1,000 Unit/Ml Inj 10 Ml) 10,000 unit INTRACATH ONCE ONE Stop: 03/11/25 09:54 Last Admin: 03/11/25 16:08 Dose: 10,000 unit Hydrocortisone Sodium Succinate (Hydrocortisone 100 Mg/2 Ml Sdv) 50 mg IVP Q6H [facility] Last Admin: 03/13/25 15:05 Dose: 50 mg Sodium Chloride (Sodium Chloride 0.9%) 1,000 mls @ 999 mls/hr IV .Q1H1M ONE Stop: 03/08/25 21:11 Last Infusion: 03/08/25 21:17 Dose: Infused Sodium Chloride (Sodium Chloride 0.9%) 2,313.33 mls @ 2,313.33 mls/hr 30 ml/kg infuse over 1 hr (2313.33 ml) IV .Q1H ONE Stop: 03/08/25 21:47 Last Admin: 03/08/25 22:26 Dose: 2,313.33 mls/hr Piperacillin Sod/Tazobactam (Sod 3.375 gm/ Sodium Chloride) 50 mls @ 100 mls/hr IV ONCE ONE; Protocol Stop: 03/08/25 21:17 Last Infusion: 03/08/25 21:37 Dose: Infused Sodium Chloride (Sodium Chloride 0.9%) 1,000 mls @ 999 mls/hr IV .Q1H1M ONE Stop: 03/08/25 23:03 Last Admin: 03/09/25 07:40 Dose: Not Given Acetaminophen (Acetaminophen) Confirm Administered Dose 1,000 mg in 100 mls @ as directed .ROUTE .STK-MED ONE Stop: 03/08/25 22:41 Potassium Chloride (K-Sonido Premix) 100 mls @ 50 mls/hr IV ONCE ONE Stop: 03/09/25 01:29 Last Admin: 03/09/25 07:40 Dose: Not Given Sodium Chloride (Sodium Chloride 0.9%) 1,000 mls @ 999 mls/hr IV .Q1H1M ONE Stop: 03/09/25 01:38 Last Infusion: 03/14/25 18:33 Dose: Infused Sodium Chloride (Sodium Chloride 0.9%) 1,000 mls @ 999 mls/hr IV .Q1H1M ONE Stop: 03/09/25 02:30 Last Infusion: 03/09/25 07:40 Dose: Infused Lactated Ringer's (Lactated Ringers) 1,000 mls @ 150 mls/hr IV .Q6H40M [facility] Last Infusion: 03/14/25 18:32 Dose: Infused Cefazolin Sodium 2,000 mg/ (Sodium Chloride) 100 mls @ 200 mls/hr IV ONCE ONE; Protocol Stop: 03/08/25 23:26 Last Infusion: 03/08/25 23:07 Dose: Infused Lactated Ringer's (Lactated Ringers) 1,000 mls @ 999 mls/hr IV .Q1H1M ONE Stop: 03/09/25 09:49 Last Admin: 03/14/25 18:31 Dose: Not Given Sodium Chloride (Sodium Chloride 0.9%) 1,000 mls @ 999 mls/hr IV .Q1H1M ONE Stop: 03/09/25 10:09 Last Infusion: 03/14/25 18:33 Dose: Infused Vancomycin HCl (Vancocin) 2,000 mg in 400 mls @ 200 mls/hr IV ONCE ONE Stop: 03/09/25 11:44 Last Infusion: 03/14/25 18:33 Dose: Infused Calcium Gluconate/Sodium Chloride (Calcium Gluconate 0.9% Nacl) 1 gm in 50 mls @ 50 mls/hr IV ONCE ONE Stop: 03/09/25 14:18 Last Infusion: 03/09/25 19:21 Dose: Infused Sodium Bicarbonate 150 meq/ (Dextrose) 1,150 mls @ 150 mls/hr IV .Q7H40M [facility] Last Infusion: 03/14/25 18:33 Dose: Infused Albumin Human (Albumin) 25 g in 100 mls @ 60 mls/hr IV Q8H [facility] Last Admin: 03/16/25 12:09 Dose: Not Given Heparin Sodium/Sodium Chloride (Heparin Drip) 25,000 unit in 500 mls @ 22.08 mls/hr IV CONT CHERY; Protocol Last Titration: 03/14/25 18:31 Dose: Infused Amiodarone HCl/Dextrose (Nexterone) 150 mg in 100 mls @ 400 mls/hr IV ONCE ONE Stop: 03/09/25 21:36 Last Infusion: 03/09/25 23:36 Dose: Infused Lidocaine HCl 5 ml/ Potassium (Chloride) 105 mls @ 26.25 mls/hr IV ONCE ONE Stop: 03/10/25 08:57 Last Infusion: 03/10/25 09:24 Dose: Infused Potassium Chloride (K-Sonido Premix) 100 mls @ 50 mls/hr IV ONCE [facility] Last Infusion: 03/10/25 12:33 Dose: Infused Lidocaine HCl 5 ml/ Potassium (Chloride) 105 mls @ 26.25 mls/hr IV ONCE ONE Stop: 03/10/25 16:17 Last Infusion: 03/10/25 17:02 Dose: Infused Lactated Ringer's (Lactated Ringers) 1,000 mls @ 75 mls/hr IV .[id number] [facility] Last Infusion: 03/14/25 18:32 Dose: Infused Albumin Human (Albumin) 12.5 gm in 50 mls @ 60 mls/hr IV PRN PRN PRN Reason: Hypotension and/or symptomatic Last Infusion: 03/11/25 04:24 Dose: Infused Vancomycin HCl 750 mg/ Sodium (Chloride) 250 mls @ 250 mls/hr IV ONCE ONE Stop: 03/11/25 07:29 Last Infusion: 03/11/25 07:51 Dose: Infused Calcium Gluconate/Sodium Chloride (Calcium Gluconate 0.9% Nacl) 1 gm in 50 mls @ 100 mls/hr IV Q30M [facility] Stop: 03/11/25 11:44 Last Infusion: 03/11/25 11:47 Dose: Infused Vancomycin HCl 750 mg/ Sodium (Chloride) 250 mls @ 250 mls/hr IV ONCE ONE Stop: 03/12/25 16:14 Last Infusion: 03/12/25 20:09 Dose: Infused Lidocaine HCl 5 ml/ Potassium (Chloride) 105 mls @ 52.5 mls/hr IV ONCE ONE Stop: 03/13/25 03:09 Last Infusion: 03/13/25 03:52 Dose: Infused Vancomycin HCl 750 mg/ Sodium (Chloride) 250 mls @ 250 mls/hr IV ONCE ONE Stop: 03/13/25 07:44 Last Infusion: 03/13/25 19:49 Dose: Infused Calcium Gluconate/Sodium Chloride (Calcium Gluconate 0.9% Nacl) 1 gm in 50 mls @ 100 mls/hr IV Q30M [facility] Stop: 03/13/25 17:59 Last Infusion: 03/13/25 19:49 Dose: Infused Potassium Phosphate 40 meq/ (Sodium Chloride) 109.0909 mls @ 27.25 mls/hr IV ONCE ONE Stop: 03/16/25 12:30 Last Infusion: 03/16/25 13:25 Dose: Infused Potassium Chloride (K-Soniod Premix) 100 mls @ 50 mls/hr IV ONCE CHERY Potassium Chloride (K-Sonido Premix) 100 mls @ 50 mls/hr IV ONCE ONE Stop: 03/17/25 12:44 Last Infusion: 03/17/25 12:42 Dose: Infused Iohexol (Iohexol 350 Mg/Ml 500 Ml Btl (Per Ml)) 0 ml IV ONCE ONE Stop: 03/11/25 09:30 Last Admin: 03/11/25 09:30 Dose: 100 ml Ketamine HCl (Ketamine 50 Mg/Ml Syr 1 Ml) Confirm Administered Dose 50 mg .ROUTE .STK-MED ONE Stop: 03/08/25 22:41 Ondansetron HCl (Ondansetron 2 Mg/Ml Sdv 2 Ml) Confirm Administered Dose 4 mg .ROUTE .STK-MED ONE Stop: 03/08/25 22:34 Pantoprazole Sodium (Pantoprazole 40 Mg Sdv) 80 mg IVP ONCE ONE Stop: 03/08/25 20:50 Last Admin: 03/08/25 21:04 Dose: 80 mg Potassium Chloride (Potassium Chloride Oral Liq 20 Meq/15 Ml Udc) 40 meq PO ONCE ONE Stop: 03/15/25 10:18 Last Admin: 03/15/25 11:00 Dose: 40 meq Potassium Chloride (Potassium Chloride Er 20 Meq Tablet) 40 meq PO ONCE ONE Stop: 03/17/25 05:10 Last Admin: 03/17/25 06:27 Dose: 40 meq Propofol (Propofol 10 Mg/Ml Sdv 20 Ml) Confirm Administered Dose 200 mg .ROUTE .STK-MED ONE Stop: 03/08/25 22:38 Rocuronium [place] (Rocuronium 10 Mg/Ml Inj 5ml) Confirm Administered Dose 50 mg .ROUTE .STK-MED ONE Stop: 03/08/25 22:34 Senna (Sennosides 8.6 Mg Tablet) 17.2 mg PO BEDTIME CHERY Last Admin: 03/13/25 21:26 Dose: 17.2 mg Sodium Bicarbonate (Sodium Bicarbonate 8.4% 1 Meq/Ml 50ml Syr) 150 meq IVP ONCE ONE Stop: 03/09/25 17:03 Last Admin: 03/09/25 17:08 Dose: 150 meq Succinylcholine Chloride (Succinylcholine 20 Mg/Ml Sdv 10ml) Confirm Administered Dose 200 mg .ROUTE .STK-MED ONE Stop: 03/08/25 22:34 Sugammadex Sodium (Sugammadex 200 Mg/2 Ml Sdv) Confirm Administered Dose 200 mg .ROUTE .STK-MED ONE Stop: 03/09/25 00:06 Sugammadex Sodium (Sugammadex 200 Mg/2 Ml Sdv) Confirm Administered Dose 200 mg .ROUTE .STK-MED ONE Stop: 03/09/25 00:06 Vancomycin HCl (Vancomycin 1,000 Mg Sdv (Pharmacy Mix)) 0 mg XX PRN PRN PRN Reason: Pharmacy to Dose Allergies No Known Allergies Allergy (Verified 03/09/25 11:07) Home Medications No Known Home Medications 03/09/25 [History Confirmed 03/09/25] Discharge Plan Discharge Patient Disposition: Home Condition: Stable Prescriptions: No Action No Known Home Medications Discharge Order = DC NOW: Discharge Order (Routine); Ordered 03/17/25 Ordered By: Rosette Nguyen Discharge Diet: Usual diet Discharge Activity: Resume usual activity Patient Instructions: Acute Wound Care (DC), Abdominal Pain (ED), Opioid Safety, Post Anesthesia Care, Patient Portal & [facility] Instructions Transfer Attestations Time Spent in Transfer Care: less than 30 min Quality Metrics Clinical Quality Measures [ No reported AMI, CVA or VTE this stay] Coding Level of Care Code Acute Code for [facility] Diagnoses Acute kidney injury N17.9
[2025-03-17] MEDS: morphine 4 mg/mL SDV 1 mL 1 MG IVP (18:30)
--- NOTE | 2025-03-17 18:33 | PC.NURSE ---
[facility] ambulance here Transported pt [facility] for IR. all pt belongings sent with pt and discharge packet given to ambulance personnel.
[2025-03-19 11:28] LABS: RPR w(Moniotor) w/REFL Titer NON-REACTIVE (NON-REACTIVE)
== END 2025-03-17 18:30 | disposition short-term general hospital (02) | DRG 853 ==
LOC: ER 21:54 → OR 21:57 → ICU 03-09 00:35 → CSU 03-14 17:48
PROVIDERS: Hospitalist; Student in an Organized Health Care Education/Training Program; Admitting Provider Student in an Organized Health Care Education/Training Program; Emergency Provider Family Medicine; Visit Provider Internal Medicine
PROC: (CPT 49000; principal; 2025-03-08 22:00)
PROC: (CPT 44950; 2025-03-08 22:00)
DX: A41.9 Sepsis, unspecified organism (principal); K35.33 Acute appendicitis with perforation, localized peritonitis, and gangrene, with abscess; R65.21 Severe sepsis with septic shock; N17.0 Acute kidney failure with tubular necrosis; K72.00 Acute and subacute hepatic failure without coma; E87.1 Hypo-osmolality and hyponatremia; E87.20 Acidosis, unspecified; J90 Pleural effusion, not elsewhere classified; E87.6 Hypokalemia; K81.9 Cholecystitis, unspecified; R74.01 Elevation of levels of liver transaminase levels; I48.91 Unspecified atrial fibrillation; E88.09 Other disorders of plasma-protein metabolism, not elsewhere classified; D64.9 Anemia, unspecified; D69.6 Thrombocytopenia, unspecified; R00.1 Bradycardia, unspecified; N18.9 Chronic kidney disease, unspecified; B19.20 Unspecified viral hepatitis C without hepatic coma; E83.51 Hypocalcemia; Z99.81 Dependence on supplemental oxygen
CPT/HCPCS: 36415; 36416; 36592; 51702; 71045; 71250; 74176; 74177; 76705; 76770; 80048; 80053; 80061; 80069; 80202; 81001; 82044; 82140; 82436; 82570; 82607; 82728; 82746; 82962; 83036; 83540; 83550; 83605; 83690; 83735; 83935; 84100; 84133; 84156; 84300; 84484; 85007; 85025; 85730; 86022; 86592; 86704; 86705; 86706; 86803; 87040; 87070; 87075; 87077; 87086; 87186; 87205; 87340; 87486; 87522; 87581; 87633; 87806; 88304; 90935; 93005; 93306; 96365; 96366; 96367; 96372; 96375; 97162; 97167; 97530; 97535; 99285; A4222; C1751; J0131; J0282; J0283; J0330; J0612; J0690; J1100; J1642; J1644; J1720; J1815; J1938; J2270; J2405; J2470; J2543; J2704; J3010; J3372; J3373; J3480; J3490; J7030; J7050; J7070; J7120; J9999; P9046; P9047; Q3014